=== PATIENT | male | born 1985 | race Caucasian/White ===

== ENCOUNTER 2022-06-02 08:00 | Outpatient (RCR) | payer SELFPAY | END 2022-10-15 13:53 | disposition home or self-care (01) | PROVIDERS: Visit Provider Family Medicine | DX: I89.0 Lymphedema, not elsewhere classified (principal); L03.115 Cellulitis of right lower limb; Z51.89 Encounter for other specified aftercare | CPT/HCPCS: 97140; 97165 ==

== ENCOUNTER 2022-09-03 22:55 | Emergency (ER) | payer SELFPAY ==
[2022-09-03 23:00] VITALS: BP 151/93; PULSE 99; RESP 18; TEMP 36.3; O2SAT 97; BMI 43.8
--- NOTE | 2022-09-03 23:15 | ED_ITS ---
HPI - Ear Problem General Time Seen by Provider: 23:16 Date Seen: 09/03/22 Chief complaint: Ear/Nose/Throat Problem Stated complaint: Left Ear Pain Time Seen by Provider: 09/03/22 23:09 Source: patient, RN notes reviewed and old records reviewed Mode of arrival: ambulatory Limitations: no limitations History of Present Illness HPI Narrative: Ap is a very pleasant 37-year-old gentleman with a history of gout and nicotine use who comes to the emergency room for evaluation regarding left ear pain. Patient notes the onset of ear feeling like it was muffled earlier today but has had increasing pain throughout the evening. He has not had fever chills. He states he had 1 day of cold-like symptoms last week. But has been dealing with environmental allergies with some increased congestion. The pain in his ear radiates to his jaw and he is sore behind his ear as well. This has not happened to him in the past. He has tried ibuprofen but it did not signifi cantly help his pain. Related Data Home Medications Medication Instructions Recorded Confirmed Excedrin Migraine 09/03/22 ibuprofen 09/03/22 Previous Rx's Medication Instructions Recorded furosemide 40 mg tablet (Lasix) 40 mg PO QAM #30 tabs 08/26/22 Allergies Allergy/AdvReac Type Severity Reaction Status Date / Time No Known Allergies Allergy Verified 09/03/22 23:02 Review of Systems Narrative: Patient denies fever, chills. He has not had issues with otitis media or swimmer's ear in the past. Denies sore throat. Has had occasional cough and congestion secondary to allergies. No history of diabetes [facility] Medical History External hemorrhoids Gout Lower gastrointestinal hemorrhage Lymphedema of right lower extremity Nicotine dependence (06/07/09) Surgical History History of umbilical hernia repair Social History Smoking Status: Current every day smoker How often do you have a drink containing alcohol: never AUDIT-C Alcohol total score: 0 Non-prescribed substance use: denies use Exam Narrative: Exam Narrative: Patient is a very pleasant gentleman. His eyes are clear oral cavity with moist mucous membranes. Left TM is slightly erythematous and dull. However the ear canal is erythematous and there is debris present although the canal is patent at this time. He has discomfort with palpation behind his ear but there is no obvious erythema. There is no obvious edema. He has minimal tenderness with movement of the external ear. Heart with regular rate and rhythm and lungs are clear to auscultation. Const: Vital Signs, click to edit/add: Vital Signs - 24 hr 09/03/22 23:00 Temperature 97.4 F L Pulse Rate [Left P ulse Oximeter] 99 Respiratory Rate 18 Blood Pressure [Ri ght Upper Arm] 151/93 H Pulse Oximetry 97 Oxygen Delivery Me thod Room Air Documenting provider has reviewed patient's vital signs: yes Course Vital Signs Vital signs: Initial Vital Signs Temperature 97.4 F L 09/03/22 23:00 Temperature Source Temporal Artery Scan 09/03/22 23:00 Pulse Rate 99 09/03/22 23:00 Respiratory Rate 18 09/03/22 23:00 Blood Pressure 151/93 H 09/03/22 23:00 Blood Pressure Mean 112 09/03/22 23:00 Blood Pressure Position Sitting 09/03/22 23:00 Pulse Oximetry 97 09/03/22 23:00 Oxygen Delivery Method 09/03/22 23:00 Vital Signs Temperature 97.4 F L 09/03/22 23:00 Pulse Rate 99 09/03/22 23:00 Respiratory Rate 18 09/03/22 23:00 Blood Pressure 151/93 H 09/03/22 23:00 Pulse Oximetry 97 09/03/22 23:00 Oxygen Delivery Method 09/03/22 23:00 Temperature 97.4 F L 09/03/22 23:00 Pulse Rate 99 09/03/22 23:00 Respiratory Rate 18 09/03/22 23:00 Blood Pressure 151/93 H 09/03/22 23:00 Pulse Oximetry 97 09/03/22 23:00 Oxygen Delivery Method 09/03/22 23:00 Medical Decision Making [facility] Narrative Medical decision making narrative: 1. Left otitis media-this is mild but will be treated with antibiotic 2. Left otitis externa-this is likely where patient's pain is stemming from. Because he has some discomfort behind the ear and is radiating to the jaw will treat with both drops as well as oral antibiotic. Augmentin 875 p.o. b.i.d. times 10 days and Cortisporin otic 4 drops left ear 4 times daily while awake for 7 days. 3. Disposition-home. For pain patient should continue ibuprofen 800 mg every 8 hours. For pain not relieved by ibuprofen he may use Patterson 5/3 25 1-2 tablets p.o. q.4-6 hours p.r.n. pain. 10. [employer]. Seek medical attention for worsening symptoms. Follow-up with primary MD if not improving. Medical Records Medical records reviewed: Yes I reviewed the patient's medical records Discharge Plan Discharge Clinical Impression: Otitis externa, Otitis media Patient Disposition: Home, Self-Care Condition: Unchanged Additional Instructions: Start Augmentin oral tablets tonight. Also would recommend ear drops as directed. For pain: Ibuprofen 800 mg every 8 hours as needed. You may add Patterson also known as hydrocodone or Vicodin every 4-6 hours as needed for pain not relieved by ibuprofen Follow-up with your primary MD if you are not improving. Return to the emergency room if you worsening symptoms. Prescriptions: No Action ibuprofen Excedrin Migraine furosemide [Lasix] 40 mg tablet 40 mg PO QAM Qty: 30 0RF Follow Up/Referrals: Provider,Not a Local [Primary Care Provider] - Stand Alone Forms: [email or web address] Info Instructions
--- OUTSIDE RECORDS SUMMARY | 2022-09-03 23:33 | XMS_ITS | Clinical Summary ---
:1985 Author Organization [facility] [facility] [employer] [facility] [place] [address] Care Team Providers Name Role Phone Pcp, No Primary Care Provider Unavailable Allergies No known active allergies Medications No known medications Active Problems Problem Noted Date Gout 05/27/2014 Cellulitis of left lower leg 06/29/2013 Immunizations Name Administration Dates Next Due AMB Influenza, IIV3 (Age >=3 years)(Flu 08/13/2009 Clinic Only) DTaP 09/20/1986, 1985, 1985 Influenza, IIV3 (Age >=3 years) 08/13/2009 MMR 07/19/1986 Polio Virus, Unspecified 09/20/1986, 1985 Tdap 04/22/2016 Social History Tobacco Use Types Packs/Day Years Used Date Current Every Day Smoker Cigarettes 1 Smokeless Tobacco: Never Used Tobacco Cessation: Ready to Quit: No; Co unseling Given: Yes Alcohol Use Standard Drinks/Week Comments No 0 (1 standard drink = 0.6 oz pure alcoho l) rare Alcohol Habits Answer Date Recorded How often do you have a drink containing alcohol? Not asked How many drinks containing alcohol do you have on a typical Not asked day when you are drinking? How often do you have six or more drinks on one occasion? 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 Body Mass Index 39.49 12/30/2017 11:13 AM RECOVERY ENGINEER Plan of Treatment Health Maintenance Due Date Last Done Comments COVID-19 vaccine series (#1) 1985 Hepatitis C screening for age 0301/29/2003 18-79 BMI (ht and wt on same day) for 12/30/2018 12/30/2017, 03/2017, age 18+ 06/26/2016, Additional history exists Depression screening for age 12+ 05/06/2019 05/06/2018, 03/2017 Lipids for age 35-44 01/30/2020 Influenza for age 9-49 07/10/2022 08/13/2009, 08/13/2009 Tetanus booster 04/22/2026 04/22/2016 Tdap Completed 04/22/2016 Results Not on filefrom Last 3 Months Care Teams Studio Designer Relationship Specialty Start Date End Date Pcp, No PCP - General 05/27/14 .
== END 2022-09-03 23:41 | disposition home or self-care (01) ==
LOC: ED 23:32
PROVIDERS: Emergency Provider Family Medicine
DX: H66.92 Otitis media, unspecified, left ear (principal); H60.92 Unspecified otitis externa, left ear
CPT/HCPCS: 99283

== ENCOUNTER 2022-10-09 10:39 | Outpatient (CLI) | payer SELFPAY ==
--- OUTSIDE RECORDS SUMMARY | 2022-10-09 10:42 | XMS_ITS | Clinical Summary ---
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 Body Mass Index 39.49 12/30/2017 11:13 AM HAZMAT TRUCK DRIVER Plan of Treatment Health Maintenance Due Date Last Done Comments COVID-19 vaccine series (#1) 1985 HIV for age 15-65 01/30/2000 Hepatitis C screening for age 0301/29/2003 18-79 BMI (ht and wt on same day) for 12/30/2018 12/30/2017, 03/2017, age 18+ 06/26/2016, Additional history exists Depression screening for age 12+ 05/06/2019 05/06/2018, 03/2017 Lipids for age 35-44 01/30/2020 Influenza for age 9-49 07/10/2022 08/13/2009, 08/13/2009 Tetanus booster 04/22/2026 04/22/2016 Tdap Completed 04/22/2016 Results Not on filefrom Last 3 Months Care Teams Gas Pipe Layer Relationship Specialty Start Date End Date Pcp, No PCP - General 05/27/14 .
[2022-10-09 15:13] LABS: Basophils Absolute Auto 0.05 K/uL (0.00-0.30); Basophils Percent Auto 0.7 % (0.0-3.0); Eosinophils Absolute Auto 0.14 K/uL (0.00-0.50); Eosinophils Percent Auto 1.9 % (0.0-7.0); Hematocrit 45.5 % (37.0-53.0); Hemoglobin* 14.8 gm/dL (13.5-17.5); Immature Granulocytes Abs Auto 0.09 K/uL (0.00-0.30); Immature Granulocytes Pct Auto 1.2 %; Lymphocytes Absolute Auto 1.54 K/uL (0.90-2.90); Lymphocytes Percent Auto 20.9 % (20-44); Mean Corpuscular HGB Conc 33 gm/dL (32-36); Mean Corpuscular Hemoglobin 31 pg (26-34); Mean Corpuscular Volume 95 fL (80-100); Monocytes Percent Auto 9.5 % (0.0-11.0); Neutrophils Absolute Auto 4.86 K/uL (1.7-7.0); Neutrophils Percent Auto 65.8 % (42.0-72.0); Platelet Count* 184 K/uL (140-440); RDW Coefficient of Variation % 14.7 % (11.5-15.5); Red Blood Count 4.77 m/uL (4.30-5.90); White Blood Count* 7.38 K/uL (4.50-11.00)
[2022-10-09 15:14] LABS: Slide Review Reflex No
[2022-10-09 15:15] LABS: Chloride* 104 mmol/L (96-114); Potassium* 4.6 mmol/L (3.6-5.1)
[2022-10-09 15:17] LABS: Cholesterol* 251 mg/dL (90-199)
[2022-10-09 15:18] LABS: Blood Urea Nitrogen* 19 mg/dL (5-24); Carbon Dioxide* 31 mmol/L (20-32); Estimated Glomerular Filt Rate 99 ml/min; Glucose* 122 mg/dL (60-115)
[2022-10-09 15:19] LABS: HDL Cholesterol* 32 mg/dL (>=40); LDL Cholesterol Calculated 123 mg/dL (<100)
[2022-10-09 15:32] LABS: Sodium* 141 mmol/L (135-149)
[2022-10-09 15:40] LABS: Triglycerides* 480 mg/dL (40-149)
== END 2022-10-09 10:40 | disposition home or self-care (01) ==
PROVIDERS: Visit Provider Family Medicine
DX: L03.115 Cellulitis of right lower limb (principal); E78.5 Hyperlipidemia, unspecified; M10.9 Gout, unspecified
CPT/HCPCS: 80048; 80061; 85025

== ENCOUNTER 2023-01-03 22:03 | Emergency (ER) | payer SELFPAY ==
[2023-01-03 22:29] VITALS: BP 151/75; PULSE 126; RESP 24; TEMP 37; O2SAT 98
--- NOTE | 2023-01-03 22:47 | ED_ITS ---
HPI - General Adult General Chief complaint: Lower Extremity Swelling Stated complaint: Right Leg Pain and Swelling Time Seen by Provider: 01/03/23 22:31 Source: patient Mode of arrival: ambulatory Limitations: no limitations History of Present Illness HPI narrative: 37-year-old male coming in today concerned about right leg pain. He states that he does have chronic swelling of both legs, right much greater than the left, and he has had a history of cellulitis before. He states that a few days ago the right lower extremity started burning and is slowly becoming more painful. He denies any fevers or chills. No nausea or vomiting. He tells me that for the last several weeks he has been feeling more tired than usual. He has episodes of shortness of breath that come and go. He does continue to smoke [place], does not watch what he eats, is morbidly obese, does not exercise. He does have a history of hyperlipidemia, obesity, gout, lymphedema. He was on Lasix in the past but tells me that it does not bring down the swelling of his legs at all. He states that when his legs begin to hurt he puts on a compression stocking on that helps. Unfortunately, he also has a habit of picking at his skin and so he has several open sores of the bilateral lower extremities along with several healing scabs. Related Data Previous Rx's Medication Instructions Recorded amoxicillin 875 mg-potassium 1 tab PO BID #20 tabs 10/09/22 clavulanate 125 mg tablet fluticasone propionate 50 2 spray intranasal QDAY #16 grams 10/09/22 mcg/actuation nasal spray,suspension (Flonase Allergy Relief) furosemide 40 mg tablet (Lasix) 40 mg PO QAM #90 tabs 10/09/22 cephalexin 500 mg capsule 500 mg PO QID 7 days #28 caps 01/03/23 Allergies Allergy/AdvReac Type Severity Reaction Status Date / Time No Known Drug Allergies Allergy Verified 10/09/22 10:10 Review of Systems Status of ROS: Reports: 10 or more systems reviewed and unremarkable except as noted in History and below [facility] Medical History Allergic rhinitis External hemorrhoids Gout Hyperlipidemia Lower gastrointestinal hemorrhage Lymphedema of right lower extremity Nicotine dependence (06/07/09) Surgical History History of umbilical hernia repair 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 Alert and oriented x3. Answers questions appropriately. Mood and affect are appropriate. Thou ghts are goal oriented and rational. No tangential or magical thinking noted. Patient speaks in full sentences without needing to catch his breath. I did recheck his pulse, it was 105. Patient is disheveled, hair is unclean, has a very strong odor. HEENT: Normocephalic atraumatic. Pupils are equally round reactive to light. Extraocular muscles are intact. Conjunctivae are moist without any icterus noted. Moist mucous membranes. Cardiovascular: Heart is regular rate and rhythm S1 and S2 are present without any murmurs. Lungs: Clear to auscultation bilaterally no wheezes rhonchi or rales are appreciated. Patient takes deep breaths without any discomfort. He does have a prolonged expiratory phase. Abdomen: Protuberant and soft. Normal bowel sounds. Extremities: Bilateral lower extremities have [place] induration bilaterally. He has a weeping for rash open wound on the medial right lower extremity. Several healing scabs of the bilateral lower extremities. The right lower extremity is bigger than the left with anterior erythema and pain to palpation. Is hot to touch. Skin: Per above. He also has scars from picking of the bilateral upper extremities. His hands are very dirty. Const: Vital Signs, click to edit/add: Vital Signs - 24 hr 01/03/23 22:29 Temperature 98.6 F Pulse Rate [Left P ulse Oximeter] 126 H Respiratory Rate 24 Blood Pressure [Ri ght Upper Arm] 151/75 H Pulse Oximetry 98 Oxygen Delivery Me thod Room Air Course Course Hospital Course: We discussed treating with antibiotics and doing further workup. Patient believes that further labs are not necessary at this time. He is not terribly concerned about his episodes of shortness of breath that come and go or his fatigue. He is concerned about the possibility that he has amyloidosis, as this is something he read on the Internet, I recommend he follow-up with his primary care provider to discuss that further. Vital Signs Vital signs: Initial Vital Signs Temperature 98.6 F 01/03/23 22:29 Temperature Source Temporal Artery Scan 01/03/23 22:29 Pulse Rate 126 H 01/03/23 22:29 Pulse Rhythm 01/03/23 22:29 Respiratory Rate 24 01/03/23 22:29 Blood Pressure 151/75 H 01/03/23 22:29 Blood Pressure Mean 100 01/03/23 22:29 Blood Pressure Position Sitting 01/03/23 22:29 Pulse Oximetry 98 01/03/23 22:29 Oxygen Delivery Method 01/03/23 22:29 Vital Signs Temperature 98.6 F 01/03/23 22:29 Pulse Rate 126 H 01/03/23 22:29 Respiratory Rate 24 01/03/23 22:29 Blood Pressure 151/75 H 01/03/23 22:29 Pulse Oximetry 98 01/03/23 22:29 Oxygen Delivery Method 01/03/23 22:29 Temperature 98.6 F 01/03/23 22:29 Pulse Rate 126 H 01/03/23 22:29 Respiratory Rate 24 01/03/23 22:29 Blood Pressure 151/75 H 01/03/23 22:29 Pulse Oximetry 98 01/03/23 22:29 Oxygen Delivery Method 01/03/23 22:29 Medical Decision Making MDM Narrative Medical decision making narrative: 37-year-old male with chronic lymphedema, and picking behaviors, and resulting cellulitis of the right lower extremity. Will treat with Keflex 4 times a day for the next week. Do want him to follow up with primary care provider this coming week to make sure that he is improving. Return to the ER if he is getting worse. Medical Records Medical records reviewed: Yes I reviewed the patient's medical records Discharge Plan Discharge Clinical Impression: Cellulitis of right lower extremity Patient Disposition: Home, Self-Care Condition: Stable Additional Instructions: Follow-up with your primary care provider this coming week. Take all antibiotics as prescribed. If you feel like you are getting worse instead of better over the next 1-2 days return to the ER. Prescriptions: New cephalexin 500 mg capsule 500 mg PO QID 7 Days Qty: 28 0RF No Action amoxicillin-pot clavulanate 875-125 mg tablet 1 tab PO BID Qty: 20 0RF fluticasone propionate [Flonase Allergy Relief] 50 mcg/actuation spray,suspension 2 spray intranasal QDAY Qty: 16 12RF Rx Instructions: administer into each nostril furosemide [Lasix] 40 mg tablet 40 mg PO QAM Qty: 90 1RF Follow Up/Referrals: Provider,Not a Local [Primary Care Provider] - Stand Alone Forms: [employer] Info Instructions
--- NOTE | 2023-01-03 23:27 | ED.NURSE ---
Dressing applied, which included telfa, gauze and coban, to right lower extremity wound that was weeping.
[2023-01-03 23:28] VITALS: BP 146/81
== END 2023-01-03 23:29 | disposition home or self-care (01) ==
LOC: ED 23:08
PROVIDERS: Emergency Provider Family Medicine
DX: L03.115 Cellulitis of right lower limb (principal)
CPT/HCPCS: 99283

== ENCOUNTER 2023-04-20 19:47 | Outpatient (CLI) | payer BC, SELFPAY ==
--- NOTE | 2023-04-28 09:25 | W.PM.SLEEP ---
Sleep Study Details Details Interpreting Provider: Nicki Date of Sleep Study: 04/20/23 Sleep Study Details: STUDY TYPE:? Home unattended ? BMI:? 46.9 ORDERING PROVIDER:? Nicki INDICATION:? Concerns about sleep apnea ? SLEEP SUMMARY:? 255.5 minutes monitored RESPIRATORY SUMMARY:? AHI 112.3 Low oxygen 52 78.5% of study oxygen less than 90%, 19.6% of study oxygen less than 70% Snoring 18% PERIODIC LIMB MOVEMENTS OF SLEEP:? Not recorded during home study CARDIAC:? Range 63-123, mean 96.2 IMPRESSION:? Very severe obstructive sleep apnea with minimal positional variation and significant hypo oxygenation RECOMMENDATION: In-lab titration is recommended because of significant hypo oxygenation. Alternative would be an AutoSet CPAP followed by overnight oximetry once effective therapy is established. Given the severity of the apnea this patient may end up requiring bilevel.
--- NOTE | 2023-06-17 08:06 | W.PM.SLEEP ---
Sleep Study Details Details Interpreting Provider: Nicki Date of Sleep Study: 04/20/23 Sleep Study Details: STUDY TYPE:? Hospital-based with CPAP titration ? BMI:? 48.3 ORDERING PROVIDER:? Nicki INDICATION:? Previous positive sleep study. This is a titration only study ? SLEEP SUMMARY:? Total sleep time 393 minutes, efficiency 85.9, arousal index 23.1 RESPIRATORY SUMMARY:? The overall AHI in this study was 31.6 here. CPAP titration failed as AHI remained dramatically elevated. The patient was then placed on bilevel. He did best at pressures of 15/11 and 16/12 and 17/13. 17/13 decreased AHI to 11.7 which is a dramatic improvement. Nonsupine REM sleep was seen add all of the preceding pressures. PERIODIC LIMB MOVEMENTS OF SLEEP:? None CARDIAC:? Awake 104, asleep 96 no arrhythmias noted. IMPRESSION:? Somewhat successful titration. CPAP failed. Bilevel pressure of 17/13 appeared to be the best pressure and included nonsupine REM sleep. RECOMMENDATION: Would initiate bilevel at a pressure of 17/13 recommend patient sleep in the nonsupine position. Close follow-up is recommended.
== END 2023-04-20 19:48 | disposition home or self-care (01) ==
LOC: SLEEP 19:48
PROVIDERS: PCP Family Medicine; Visit Provider Otolaryngology
DX: G47.33 Obstructive sleep apnea (adult) (pediatric) (principal)
CPT/HCPCS: 95806

== ENCOUNTER 2023-04-21 12:42 | Outpatient (CLI) | payer BC, SELFPAY | END 2023-04-21 12:43 | disposition home or self-care (01) | PROVIDERS: PCP Family Medicine; Visit Provider Family Medicine | DX: Z00.00 Encounter for general adult medical examination without abnormal findings (principal); R19.7 Diarrhea, unspecified; E78.5 Hyperlipidemia, unspecified; I89.0 Lymphedema, not elsewhere classified | CPT/HCPCS: 80048; 84443; 85025; 86140 ==

== ENCOUNTER 2023-06-02 11:09 | Outpatient (CLI) | payer BC, SELFPAY ==
--- NOTE | 2023-06-02 11:00 | CRLHL7_ITS ---
For Patients: As a result of the Century Cures Act, medical imaging exams and procedure reports are released immediately into your electronic medical record. You may view this report before your referring provider. If you have questions, please contact your health care provider. Indication: RIGHT medial/prox thigh, palpable protruding mass. ?lipoma Technique: Grayscale and color Doppler ultrasound of the soft tissues within the upper proximal thigh performed. Comparison: CT with contrast 10/26/2021 Findings: There is an ill-defined area heterogeneous tissue within the subcutaneous region of the right proximal thigh without abnormal vascularity. This may correspond to a chronic area fat infiltration/edema on the prior CT scan. The previously noted enlarged lymph nodes are not visualized on today`s exam. There is no drainable fluid collection. Impression: Complex heterogeneous tissues within the right proximal thigh which do not represent lipoma. This appears chronic and indeterminate although of doubtful significance. An MRI evaluation of this area may be beneficial. Dictated by Ap Murry MD @ 06/02/2023 12:05:25 PM (Electronically Signed)
== END 2023-06-02 11:10 | disposition home or self-care (01) ==
LOC: US 11:09
PROVIDERS: PCP Family Medicine; Visit Provider Surgery
DX: M79.89 Other specified soft tissue disorders (principal)
CPT/HCPCS: 76882

== ENCOUNTER 2023-06-04 21:20 | Outpatient (CLI) | payer BC, SELFPAY | END 2023-06-04 21:21 | disposition home or self-care (01) | LOC: SLEEP 21:20 | PROVIDERS: PCP Family Medicine; Visit Provider Otolaryngology | DX: G47.33 Obstructive sleep apnea (adult) (pediatric) (principal) | CPT/HCPCS: 95811 ==

== ENCOUNTER 2023-06-06 00:49 | Emergency (ER) | payer BC, SELFPAY ==
[2023-06-06 01:15] VITALS: BP 138/84; PULSE 105; RESP 18; TEMP 36.7; O2SAT 99; BMI 48.5
--- NOTE | 2023-06-06 01:19 | ED_ITS ---
HPI - General Adult General Chief complaint: Laceration/Wound Stated complaint: right leg lac Time Seen by Provider: 06/06/23 01:04 History of Present Illness HPI narrative: Patient is a 38-year-old gentleman with a known history of peripheral vascular disease and venous insufficiency of lower extremities who presents with wheezing from chronic ulcerations of his lower extremities. Patient has a number of small ulcerations over the circumference of the lower extremities bilaterally and has obvious venous staining of both calves. Patient has a chronic edema which is not changed. The erythema is slightly worse on the right and patient is concerned he may have an infection. Patient has a large lump in the right side of his groin and evaluation is pending. Not certain what is causing that lump. The lymphedema is clearly noted in the lower extremities and has been for quite some time. He has had no chest pain shortness a breath orthopnea no PND. He takes no regular medications. He has been trialed on Lasix which did not agree with him. No other significant symptoms he has been afebrile. Related Data Home Medications Medication Instructions Recorded Confirmed No Known Home Medications 06/06/23 06/06/23 Allergies Allergy/AdvReac Type Severity Reaction Status Date / Time No Known Drug Allergies Allergy Verified 06/06/23 01:17 Review of Systems Status of ROS: Reports: 10 or more systems reviewed and unremarkable except as noted in History and below [facility] Medical History Obstructive sleep apnea ?G47.33 - Obstructive sleep apnea (adult) (pediatric) (ICD-10) Edema ?R60.9 - Edema, unspecified (ICD-10) Hyperlipidemia ?E78.5 - Hyperlipidemia, unspecified (ICD-10) Allergic rhinitis ?J30.9 - Allergic rhinitis, unspecified (ICD-10) Lymphedema of right lower extremity ?I89.0 - Lymphedema, not elsewhere classified (ICD-10) Lower gastrointestinal hemorrhage ?K92.2 - Gastrointestinal hemorrhage, unspecified (ICD-10) Gout ?M10.9 - Gout, unspecified (ICD-10) External hemorrhoids ?K64.4 - Residual hemorrhoidal skin tags (ICD-10) Surgical History History of umbilical hernia repair ?Z98.890 - Other specified postprocedural states (ICD-10) ?Z87.19 - Personal history of other diseases of the digestive system (ICD-10) Social History Narrative: works for [employer], smokes 1/2 PPD. Minimal Alcohol Smoking Status: Current every day smoker What tobacco products do you use: cigarettes How often do you have a drink containing alcohol: monthly or less How many standard drinks containing alcohol do you have on a typical day: 1 or 2 AUDIT-C Alcohol total score: 1 Non-prescribed substance use: denies use Little interest or pleasure in doing things: several days Feeling down, depressed, or hopeless: not at all service: No Exam Narrative: Exam Narrative: EXAM GENERAL: Patient appears comfortable but morbidly obese EYES: No scleral icterus. LYMPH: No supraclavicular or cervical lymphadenopathy. SKIN: Visible skin seen during exam normal or with benign process only. EXT: 1+ lower extremity edema with chronic venous bronzing of the lower extremities in the mid calf and distally. Number of ulcerations that may be due to picking Noted circumferentially in lower extremity with some increased erythema noted in the right lower extremity. Primarily clear discharge from the ulcerations. HEART: Regular rate and rhythm with no murmurs, rubs, or gallops. Distant heart tones LUNGS: Clear to auscultation bilaterally with no crackles or wheezes. ABD: Soft, non tender, non distended. Obese PSYCH: Good eye contact, speech is not pressured. Const: Vital Signs, click to edit/add: Vital Signs - 24 hr 06/06/23 01:15 Temperature 98.0 F Pulse Rate [Right Pulse Oximeter] 105 H Respiratory Rate 18 Blood Pressure [Ri ght Upper Arm] 138/84 Pulse Oximetry 99 Oxygen Delivery Me thod Room Air Course Course Hospital Course: Patient seen examined. Ulcerations are cleaned and the lower extremities are dr essed. Vital Signs Vital signs: Initial Vital Signs Temperature 98.0 F 06/06/23 01:15 Temperature Source Temporal Artery Scan 06/06/23 01:15 Pulse Rate 105 H 06/06/23 01:15 Respiratory Rate 18 06/06/23 01:15 Blood Pressure 138/84 06/06/23 01:15 Blood Pressure Mean 102 06/06/23 01:15 Blood Pressure Position Sitting 06/06/23 01:15 Pulse Oximetry 99 06/06/23 01:15 Oxygen Delivery Method Room Air 06/06/23 01:15 Vital Signs Temperature 98.0 F 06/06/23 01:15 Pulse Rate 105 H 06/06/23 01:15 Respiratory Rate 18 06/06/23 01:15 Blood Pressure 138/84 06/06/23 01:15 Pulse Oximetry 99 06/06/23 01:15 Oxygen Delivery Method Room Air 06/06/23 01:15 Temperature 98.0 F 06/06/23 01:15 Pulse Rate 105 H 06/06/23 01:15 Respiratory Rate 18 06/06/23 01:15 Blood Pressure 138/84 06/06/23 01:15 Pulse Oximetry 99 06/06/23 01:15 Oxygen Delivery Method Room Air 06/06/23 01:15 Medical Decision Making MDM Narrative Medical decision making narrative: This is a 38-year-old gentleman with long history of chronic lymphedema of the lower extremities. He has obvious venous insufficiency as well. I do think he has a mild secondary infection in the right lower extremity we will treated with Keflex for the next 7 days. More importantly will dress his wounds and provide some compression. I do think that he would be a great candidate to be seen in wound clinic. He may also benefit from referral to chronic lymphedema clinic. Would recommend follow-up with primary care to ensure that all is being done to get his weight down as well. Tetanus shot updated. Differential Diagnosis Differential Diagnosis: Cellulitis venous insufficiency ulcerations ischemic limb abscess Discharge Plan Discharge Clinical Impression: Lymphedema Patient Disposition: Home, Self-Care Condition: Stable Instructions: Lymphedema (ED) Additional Instructions: Daily dressing changes Triple antibiotic Oral Keflex as directed Follow-up with primary care to set up wound clinic visit. Activity Level: No Restrictions Discharge Diet: Regular Prescriptions: No Action No Known Home Medications Follow Up/Referrals: Ap Carl MD [Primary Care Provider] - Stand Alone Forms: [employer] Info Instructions
[2023-06-06 02:00] VITALS: BP 138/84; PULSE 105; RESP 18; TEMP 36.7; O2SAT 99
[2023-06-06 02:04] VITALS: BP 138/84; PULSE 89; RESP 18; TEMP 36.7
== END 2023-06-06 02:05 | disposition home or self-care (01) ==
PROVIDERS: Emergency Provider Internal Medicine; PCP Family Medicine
DX: I89.0 Lymphedema, not elsewhere classified (principal)
CPT/HCPCS: 99283

== ENCOUNTER 2023-06-12 07:06 | Outpatient (CLI) | payer BC, SELFPAY ==
--- NOTE | 2023-06-12 07:15 | CRLHL7_ITS ---
For Patients: As a result of the Century Cures Act, medical imaging exams and procedure reports are released immediately into your electronic medical record. You may view this report before your referring provider. If you have questions, please contact your health care provider. HISTORY: Localized swelling, mass and lump of the right upper leg. TECHNIQUE: Noncontrast and contrast enhanced MRI of the right upper thigh. 15 mL of Dotarem intravenous gadolinium was administered. COMPARISON: 10/26/2021. 06/02/2023. FINDINGS: There is an area of the protuberant subcutaneous fat of the medial anterior right upper thigh close to the inguinal crease. There is associated skin thickening along with infiltration of the subcutaneous fat in that location. This could indicate the presence of cellulitis. There is no localized fluid collection in that region. There is no encapsulated soft tissue mass. A cutaneous tumor could appear similar and correlation with the outward appearance of the skin in that location is suggested. Rarely lesions such as diffuse type neurofibroma can present with skin thickening and subcutaneous fat infiltration. There is right inguinal lymphadenopathy. There are also prominent left inguinal region lymph nodes. IMPRESSION: 1. Protuberant subcutaneous fat involving the anteromedial upper thigh close to the inguinal crease. 2. Skin thickening along with infiltration of the subcutaneous fat in that region which could relate to a localized cellulitis. A skin tumor in that location could appear similarly. Correlation with the outward appearance of the skin at that site is suggested. Rarely, diffuse type neurofibroma can present with skin thickening and subcutaneous tissue infiltration. 3. No localized fluid collection. 4. No encapsulated subcutaneous mass in that region. 5. Right inguinal region lymphadenopathy which may be reactive. Dictated by Teodoro Arias MD @ 06/15/2023 8:41:21 AM (Electronically Signed)
== END 2023-06-12 07:07 | disposition home or self-care (01) ==
LOC: MRI 07:07
PROVIDERS: PCP Family Medicine; Visit Provider Surgery
DX: R22.41 Localized swelling, mass and lump, right lower limb (principal)
CPT/HCPCS: 73720; A9575

== ENCOUNTER 2023-07-26 18:38 | Emergency (ER) | payer BC, SELFPAY ==
[2023-07-26 19:01] VITALS: BP 140/85; PULSE 110; RESP 14; TEMP 36.6; O2SAT 98; BMI 49.4
--- NOTE | 2023-07-26 19:37 | ED.GENADULT ---
HPI - General Adult General Date Seen: 07/26/23 Chief complaint: Unspecified Complaint, Adult Stated complaint: Groin pain Time Seen by Provider: 07/26/23 19:18 Source: patient Mode of arrival: ambulatory Limitations: no limitations History of Present Illness HPI narrative: Patient is a 38-year-old male presenting for left groin and thigh pain. He states today he notes he has been having gradually worsening pain to his left thigh radiating up to his lifeline has been going on for the past 4 hours. He states he got acutely worse when he was picking up his daughter and twisted. Denies any pain in his testicles. Denies any known injuries to his thigh or groin. Notes he is very tender to the thigh and radiates up to his groin and low back. Never had pain like this before. Has not taken anything yet for the pain. Related Data Home Medications Medication Instructions Recorded Confirmed No Known Home Medications 06/06/23 06/23/23 Allergies Allergy/AdvReac Type Severity Reaction Status Date / Time No Known Drug Allergies Allergy Verified 06/23/23 13:07 Review of Systems Narrative: Negative unless otherwise stated in HPI PFSH PFS Medical History Obstructive sleep apnea ?G47.33 - Obstructive sleep apnea (adult) (pediatric) (ICD-10) Edema ?R60.9 - Edema, unspecified (ICD-10) Hyperlipidemia ?E78.5 - Hyperlipidemia, unspecified (ICD-10) Allergic rhinitis ?J30.9 - Allergic rhinitis, unspecified (ICD-10) Lymphedema of right lower extremity ?I89.0 - Lymphedema, not elsewhere classified (ICD-10) Lower gastrointestinal hemorrhage ?K92.2 - Gastrointestinal hemorrhage, unspecified (ICD-10) Gout ?M10.9 - Gout, unspecified (ICD-10) External hemorrhoids ?K64.4 - Residual hemorrhoidal skin tags (ICD-10) Surgical History History of umbilical hernia repair ?Z98.890 - Other specified postprocedural states (ICD-10) ?Z87.19 - Personal history of other diseases of the digestive system (ICD-10) Social History (Reviewed 07/26/23 @ 19:38 by SEVEN Gonzalez Narrative: works for [employer], smokes 1/2 PPD. Minimal Alcohol Smoking Status: Current every day smoker What tobacco products do you use: cigarettes How often do you have a drink containing alcohol: monthly or less How many standard drinks containing alcohol do you have on a typical day: 1 or 2 AUDIT-C Alcohol total score: 1 Non-prescribed substance use: denies use Little interest or pleasure in doing things: several days Feeling down, depressed, or hopeless: not at all service: No Exam Narrative: Exam Narrative: Const: Well-nourished, Well-developed, in mild distress Eyes: PERRL, no conjunctival injection, and symmetrical lids ENMT: Atraumatic external nose and ears. Moist mucous membranes. Neck: Symmetric, trachea midline, No thyromegaly. CVS: RRR, No murmurs or gallops. Peripheral pulses 2+ and equal in all extremities RESP: Unlabored respiratory effort. Clear to auscultation bilaterally. GI: Nontender/Nondistended, No rebound or guarding. MSK:Extremities w/o deformity, Normal Active ROM but there is some pain noted to the left thigh with movement. Tenderness noted to the medial aspect of the left thigh. Mild tenderness to left groin Skin: Warm, Dry. No rashes or lesions. Neuro: Normal Muscle tone, No focal neurological deficits. Psych: Awake, Alert, & Oriented x3. Appropriate mood and affect. Const: Vital Signs, click to edit/add: Vital Signs - 24 hr 07/26/23 19:01 Temperature 97.9 F Pulse Rate [Pulse Oximeter] 110 H Respiratory Rate 14 Blood Pressure [Ri t Upper Arm] 140/85 H Pulse Oximetry 98 Course Vital Signs Vital signs: Initial Vital Signs Temperature 97.9 F 07/26/23 19:01 Temperature Source Temporal Artery Scan 07/26/23 19:01 Pulse Rate 110 H 07/26/23 19:01 Respiratory Rate 14 07/26/23 19:01 Blood Pressure 140/85 H 07/26/23 19:01 Blood Pressure Mean 103 07/26/23 19:01 Pulse Oximetry 98 07/26/23 19:01 Vital Signs Temperature 97.9 F 07/26/23 19:01 Pulse Rate 110 H 07/26/23 19:01 Respiratory Rate 14 09/17/23 19:01 Blood Pressure 140/85 H 07/26/23 19:01 Pulse Oximetry 98 07/26/23 19:01 Temperature 97.9 F 07/26/23 19:01 Pulse Rate 110 H 07/26/23 19:01 Respiratory Rate 14 07/26/23 19:01 Blood Pressure 140/85 H 07/26/23 19:01 Pulse Oximetry 98 07/26/23 19:01 Medical Decision Making MDM Narrative Medical decision making narrative: Patient is a 38-year-old male presenting for left thigh and groin pain. No testicular pain at this time. States he has been getting worse for past 4 hours ago acutely worse while he was carrying his daughter. There is pain to palpation of the medial aspect of the leg and tenderness with external rotation of the left leg. He appears to have a muscle strain. There is no testicular pain and very unlikely to be a testicular torsion this time. Unlikely to be a femoral hernia. After he was given a shot of Toradol he says the pain improved significantly. He was resting comfortably in bed on re-evaluation. He can be discharged home. Discharge Plan Discharge Clinical Impression: Muscle strain Patient Disposition: Home, Self-Care Condition: Stable Instructions: Muscle Strain (DC) Additional Instructions: Follow-up with primary care provider if symptoms continue. Take Tylenol or ibuprofen for pain. Can use ice for the pain. Return for new or worsened symptoms Prescriptions: No Action No Known Home Medications Follow Up/Referrals: Ap Carl MD [Primary Care Provider] - Stand Alone Forms: [employer] Info Instructions
[2023-07-26] MEDS: KETOROLAC 30 MG/ML inj IM (19:46)
[2023-07-26 19:48] VITALS: O2SAT 95
== END 2023-07-26 20:41 | disposition home or self-care (01) ==
PROVIDERS: Emergency Provider Student in an Organized Health Care Education/Training Program; PCP Family Medicine
DX: T14.8XXA Other injury of unspecified body region, initial encounter (principal)
CPT/HCPCS: 96372; 99282; 99283; 99284; J1885

== ENCOUNTER 2023-09-09 13:00 | Outpatient (RCR) | payer BC, SELFPAY ==
--- NOTE | 2023-07-07 19:29 | OT.OPLE ---
OT Outpatient Lymphedema Eval OT Outpatient Lymphedema Eval Start: 07/07/23 14:20 Freq: Status: Active Protocol: Document 07/06/23 01:00 BALAJI (Rec: 07/07/23 16:26 BALAJI Desktop) E-signed By Carolina Edwards OTDasha/Marcelo, BARBI OT Outpatient Evaluation Details Type Type Eval Complexity High OT OP Lymphedema Evaluation Insurance Information Insurance Information Blue Cross/[employer] Current Condition/Medical Diagnosis Referring Provider Dr. 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 Patient also has 4 children ranging in age from 1 years old to 19 years old Subjective Subjective My right leg is very heavy and sometimes it feels hard to walk I'm unable to wear most style shoes Medical History Medical History Obesity,HTN,Smoking Medical History Comments PMH includes but is not limited to: Scalp mass: Localized swelling , mass and lump, head Mass of right thigh: Localized swelling, mass and lump, right lower limb; H/O toe surgery: Other specified postprocedural states; Obstructive sleep apnea; Edema, unspecified: Epidermal cyst; Lipoma; Benign lipomatous neoplasm, unspecified; Hyperlipidemia; Allergic rhinitis; External hemorrhoids; Gout; Lymphedema of right lower extremity Medications Medications fluticasone propionate 50 mcg/ actuation (Flonase Allergy Relief) 2 sprays intranasal QDAY Patient said he was taking Lasix 40 mg PO QAM but they don't work Patient has been to the ED twice this year for infections requiring antibiotics ( & most recently 06/06/23) Family History Family History of Lymphedema No Living Situation Current Living Situation Home With Spouse Or SO Current Living Situation Comments Lives with 4 children and girlfriend Patient Difficulties Difficulties With Any Of The Following Walking,Dressing,Reaching Feet & Toes,Bathing/Showering, Preparing Meals Exercise History Does Patient Exercise Regularly No Pain Pain No Loss of Function/Strength/Mobility Loss Of Function/Strength/Mobility Yes Previous Treatment Previous Treatment For Swelling/ Compression Garment,Elevation Lymphedema Previous Treatment/Current Home Program Patient stated that his LE's do not respond from elevation Compression History Does Patient Currently Wear Compression Yes During Daytime Does Patient Currently Wear Compression No At Night Current Swelling (Location/Pitting/Texture) Pitting Scale: 0 = No pitting 1+ Tissue returns to normal almost immediately 2+ Tissue returns after 15-30 seconds 3+ Tissue returns after 1-1/2 minutes 4+ Tissue returns after 2-3 minutes N/A Tissue no longer pits due to induration Tissue texture: Soft or indurated Clinical Presentation Area Patient is morbidly obese ( weight 378 lbs), he has chronic venous bronzing of the lower extremities in the mid calf and distally. Number of ulcerations that may be due to picking-patient stated I have a hard time not scratching at my legs Increased erythema noted in the right lower extremity when comparing the left left. No discharge from the ulcerations . Clinical Presentation Pitting Non-Pitting Staging Staging Stage 2 Circumferential Measurements Lower Extremity Right Lower Extremity Great Toe 10.5 MPT 28.2 Arch 28.6 Ankle 34.6 10cm 33 20cm 46 30cm 51.2 40cm 44.7 50cm 52 60cm 59 70cm 75.8 Total 463.6 Assessment Assessment 38-year-old gentleman with a known history of peripheral vascular disease and venous insufficiency of lower extremities who presents to the clinic with chronic ulcerations of his lower extremities and a dx of R LE Lymphedema. Patient has a number of small ulcerations over the circumference of the lower extremities bilaterally (R worse than L) and has venous staining of both calves . Patient has a large lump in the right side of his groin and upon review of diagnostic imaging the impression reads Complex heterogeneous tissues within the right proximal thigh which do not represent lipoma. This appears chronic and indeterminate although of doubtful significance. Not certain what is causing that lump. The lymphedema is clearly noted in the lower extremities and has been for quite some time. Patient has a high resting HR (was 126 upon his arrival to the clinic and after 10 mins seated it went down to 105 bpm). Patient reports to therapist that he sleeps like crap and will be getting a CPAP later this week or early next week (*Patient was dozing off in clinic today , closing his eyelid and dropping his head forward). Patient takes no regular medications- trialed Lasix 40 mg but stopped taking-felt it didn't help. Patient admitted that he has a habit of picking at his skin and has several healing scabs present on the LE's. Complicating factors/ barriers to successful treatment include but are not limited to: morbid obesity ( weight 378 lbs), every day smoker, works long hours and may find difficulty with forming a new routine/change his normal habits, compression adherence and HEP compliance. Impairments Impairments Loss of Mobility,Difficulties With ADLs,Limb Heaviness,Poor Clothing Fit Impairments Comments Difficulty with walking, hard to wear regular shoes (nothing with a tie/lace), fatigue and ache in the legs which progresses throughout the day Problem List Problem List Limited Knowledge of Lymphedema Treatment/Condition /Precautions,Limited Knowledge of Skin Care & Infection Precautions,Significant Risk For Infection For Lymphedema Related Complications,Does Not Have a HEP,Does Not Know How To Bandage For Limb Reduction, Does Not Have Appropriate Compression Garments For LT Management,Presents With Increased Fall Risk Secondary To Lymphedema,Presents With Impaired Mobility/ROM, Financial Insecurity Patient Goals Click To Default Short Term Goals Standard Goals Short Term Goals Goal 1: Patient and or caregiver will understand lymphedema precautions to decrease risk of infection and further lymphedema related complications Goal 2: Patient will develop a tolerance for wearing multi- layer, short stretch bandages between treatment sessions to facilitate limb decongestion Goal 3: Patient will experience decreased edema in order to improve tissue health and decrease risk for infection/cellulitis Goal 4: Patient will perform HEP with minimal assistance in order to improve lymphatic flow and venous return Goal 5: Patient will perform self MLD protocol with minimal assistance to help reduce swelling and improve ROM and mobility Click To Default Correction Goals Standard 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 Goal 8: Patient and/or caregiver will be independent with HEP and lymphedema management to reduce risk for edema relapse and to reduce risk for infection Treatment Plan Treatment Plan Evaluation,Edema Control, Manual Therapy,Wound Care/Scar Management,Therapeutic Exercise,Therapeutic Activities,Self-Care/Home Management,Caregiver Training, Education Expected Frequency 1-2x Week Expected Duration 8-10 Weeks Certification Certification I Certify That: Therapy Services Provided, Therapy Plan Established, Therapy Plan Reviewed Recertification Information Recertification Information Initial Certification Date 07/06/23 Recertification Due Date 10/05/23 Provider Signature Shows Agreement With POC & Medical Necessity Physician Comment/Change Comment or Changes Physician NPI Number #
== END 2023-09-09 14:07 | disposition home or self-care (01) ==
PROVIDERS: PCP Family Medicine; Visit Provider Surgery
DX: I89.0 Lymphedema, not elsewhere classified (principal); Z51.89 Encounter for other specified aftercare
CPT/HCPCS: 97110; 97140; 97167; X5282

== ENCOUNTER 2023-09-14 21:36 | Emergency (ER) | payer BC, SELFPAY ==
[2023-09-14 22:23] VITALS: BP 127/85; PULSE 111; RESP 22; TEMP 36.7; O2SAT 94; BMI 48.5
--- NOTE | 2023-09-14 22:29 | CRLHL7_ITS ---
For Patients: As a result of the Century Cures Act, medical imaging exams and procedure reports are released immediately into your electronic medical record. You may view this report before your referring provider. If you have questions, please contact your health care provider. INDICATION: Top of foot and ankle pain. TECHNIQUE: Right ankle 3 views. Permanently recorded images are archived. COMPARISON: Right foot radiographs from the same day. FINDINGS: Prominent soft tissue swelling about the right ankle and distal lower extremity. No acute fracture. Alignment is normal. The joint spaces are preserved. The talar dome is intact. No definite ankle joint effusion. Tiny posterior calcaneal enthesophyte. IMPRESSION: Prominent soft tissue swelling about the right ankle and distal lower extremity. No acute bony abnormality. Dictated by Florentin Bates MD @ 09/14/2023 11:51:50 PM (Electronically Signed)
--- NOTE | 2023-09-14 22:31 | CRLHL7_ITS ---
For Patients: As a result of the Century Cures Act, medical imaging exams and procedure reports are released immediately into your electronic medical record. You may view this report before your referring provider. If you have questions, please contact your health care provider. INDICATION: Top of foot and ankle pain. TECHNIQUE: 2 views of the right foot. Permanently recorded images are archived. COMPARISON: Right ankle radiographs from the same day. FINDINGS: Circumferential soft tissue swelling about the ankle. No acute fracture. Normal alignment. Mild degenerative changes of the great toe interphalangeal joint. No aggressive osseous lesion. Tiny posterior calcaneal enthesophyte. IMPRESSION: No acute bony abnormality. Dictated by Florentin Bates MD @ 09/14/2023 11:53:21 PM (Electronically Signed)
--- NOTE | 2023-09-15 00:13 | ED.GENADULT ---
HPI - General Adult General Chief complaint: Extremity Pain/Injury, Lower Stated complaint: right foot injury Time Seen by Provider: 09/15/23 00:02 Source: patient Mode of arrival: ambulatory Limitations: no limitations History of Present Illness HPI narrative: 38-year-old male presents the emergency department with a 4 day history of pain in his right foot. Patient reports that he was walking in his kitchen. He commonly sleep walks. He reports that he awoke standing in the kitchen, about to fall. When he went to correct himself, he fell backwards with his foot folded underneath him and now has pain on the dorsal surface of the 1st 2nd and 3rd distal metacarpal heads. No difficulty moving toes, no numbness or tingling. He is able to bear weight but reports increased pain when doing so. A little bit of pain in the lateral ankle as well. He does have chronic lymphedema per his report and states that this is stable. No redness, no broken skin. Has been taking ibuprofen 800 mg every 4-5 hours and Excedrin 2 tablets a couple of times per day for pain. This does help temporarily. No prior history of significant fractures or surgery to the foot. Does not use anticoagulants. No history of neuropathy or other unusual conditions. No difficulty moving the foot in any particular direction. Past medical history notable for obstructive sleep apnea, obesity, chronic lymphedema. ROS notable for the right foot and ankle pain as described above, otherwise negative for other generalized, musculoskeletal, neurological or skin concerns. Related Data Home Medications Medication Instructions Recorded Confirmed No Known Home Medications 06/06/23 06/23/23 Allergies Allergy/AdvReac Type Severity Reaction Status Date / Time No Known Drug Allergies Allergy Verified 06/23/23 13:07 [facility] Medical History Obstructive sleep apnea ?G47.33 - Obstructive sleep apnea (adult) (pediatric) (ICD-10) Edema ?R60.9 - Edema, unspecified (ICD-10) Hyperlipidemia ?E78.5 - Hyperlipidemia, unspecified (ICD-10) Allergic rhinitis ?J30.9 - Allergic rhinitis, unspecified (ICD-10) Lymphedema of right lower extremity ?I89.0 - Lymphedema, not elsewhere classified (ICD-10) Lower gastrointestinal hemorrhage ?K92.2 - Gastrointestinal hemorrhage, unspecified (ICD-10) Gout ?M10.9 - Gout, unspecified (ICD-10) External hemorrhoids ?K64.4 - Residual hemorrhoidal skin tags (ICD-10) Surgical History History of umbilical hernia repair ?Z98.890 - Other specified postprocedural states (ICD-10) ?Z87.19 - Personal history of other diseases of the digestive system (ICD-10) Social History Narrative: works for [employer], smokes 1/2 PPD. Minimal Alcohol Smoking Status: Current every day smoker What tobacco products do you use: cigarettes How often do you have a drink containing alcohol: monthly or less How many standard drinks containing alcohol do you have on a typical day: 1 or 2 AUDIT-C Alcohol total score: 1 Non-prescribed substance use: denies use Little interest or pleasure in doing things: several days Feeling down, depressed, or hopeless: not at all service: No Exam Const: Vital Signs, click to edit/add: Vital Signs - 24 hr 09/14/23 22:23 Temperature 98.0 F Pulse Rate [Pulse Oximeter] 111 H Respiratory Rate 22 Blood Pressure [Ri ght Upper Arm] 127/85 Pulse Oximetry 94 Oxygen Delivery Me thod Room Air Documenting provider has reviewed patient's vital signs: yes Common normals: no apparent distress and alert General appearance: cooperative HENMT: Mouth: oral and palatal mucosa normal Throat: posterior oropharynx normal Eye: General eye: normal appearance of both eyes Neck & C-Spine: General: normal visual inspection Resp: Common normals: normal respiratory effort Effort & inspection: able to speak in complete sentences Cardio: Other: Regular DP pulses. Extremity: Other: Chronic venous stasis changes to lower extremities, no ulcerations. No effusions anywhere on the foot or ankle, right side. Toes move normally, completely normal range of motion of foot. Minimal bony tenderness but it is diffuse throughout the distal metatarsal heads, no tenderness over the sesamoid bones. The ankle has no point bony tenderness as well. Normal strength. Normal capillary refill. Neuro: Sensorium/orientation: alert Speech: speech normal Gait (neuro): normal gait Motor exam: strength 5/5 throughout and no movement abnormalities noted Psych: Attitude: calm Mood and affect: euthymic mood Insight: fair Judgement: fair Skin: Common normals: no rashes or lesions noted General skin exam: no rashes or lesions noted Course Course ED Course: X-ray recommended, performed and reviewed, negative. Counseled patient on findings. Do not recommend any particular treatments other than compressive stockings, symptomatic [id number] pain medication and time. Wear supportive footwear and follow-up with primary care if not improving 4 weeks post injury. Typical alarm symptoms reviewed, proper dosing [id number] medications reviewed. All questions answered, no further questions. Vital Signs Vital signs: Initial Vital Signs Temperature 98.0 F 09/14/23 22:23 Temperature Source Temporal Artery Scan 09/14/23 22:23 Pulse Rate 111 H 09/14/23 22:23 Respiratory Rate 22 09/14/23 22:23 Blood Pressure 127/85 09/14/23 22:23 Blood Pressure Mean 99 09/14/23 22:23 Blood Pressure Position Sitting 09/14/23 22:23 Pulse Oximetry 94 09/14/23 22:23 Oxygen Delivery Method Room Air 09/14/23 22:23 Vital Signs Temperature 98.0 F 09/14/23 22:23 Pulse Rate 111 H 09/14/23 22:23 Respiratory Rate 22 09/14/23 22:23 Blood Pressure 127/85 09/14/23 22:23 Pulse Oximetry 94 09/14/23 22:23 Oxygen Delivery Method Room Air 09/14/23 22:23 Temperature 98.0 F 09/14/23 22:23 Pulse Rate 111 H 09/14/23 22:23 Respiratory Rate 22 09/14/23 22:23 Blood Pressure 127/85 09/14/23 22:23 Pulse Oximetry 94 09/14/23 22:23 Oxygen Delivery Method Room Air 09/14/23 22:23 Medical Decision Making Imaging Data Ankle x-ray R: Attestation: I have reviewed the pertinent imaging results. My impression: Negative Radiologist's impression: IMPRESSION: Prominent soft tissue swelling about the right ankle and distal lower extremity. No acute bony abnormality. Right foot x-ray: Attestation: I have reviewed the pertinent imaging results. My impression: Negative foot x-ray Radiologist's impression: FINDINGS: Circumferential soft tissue swelling about the ankle. No acute fracture. Normal alignment. Mild degenerative changes of the great toe interphalangeal joint. No aggressive osseous lesion. Tiny posterior calcaneal enthesophyte. IMPRESSION: No acute bony abnormality. Discharge Plan Discharge Clinical Impression: Foot sprain Patient Disposition: Home, Self-Care Condition: Stable Instructions: Foot Sprain (ED) Additional Instructions: As we discussed, there are no signs of fracture. Your injury is most likely consistent with a sprain which is a bruising of the bone, ligaments and tendons from your fall. I do not detect any severe tendon or nerve injuries. This will likely hurt for a couple more weeks but it is okay for you to bear weight and perform all typical activities, you will not delay your healing. For pain, use Tylenol 1000 mg every 6 hours as needed and or ibuprofen 600 mg every 6 hours. If things are still bothersome in 4 weeks, I would recommend that you make a follow-up appoint with her primary care doctor and discuss advanced imaging, this is very unlikely to be necessary. Activity Level: Activity as Tolerated Discharge Diet: Regular Prescriptions: No Action No Known Home Medications Follow Up/Referrals: Ap Carl MD [Primary Care Provider] - Stand Alone Forms: [employer] Info Instructions
== END 2023-09-15 00:25 | disposition home or self-care (01) ==
LOC: ED 09-15 00:19
PROVIDERS: Emergency Provider Family Medicine; PCP Family Medicine
DX: S93.601A Unspecified sprain of right foot, initial encounter (principal); X50.1XXA Overexertion from prolonged static or awkward postures, initial encounter
CPT/HCPCS: 73610; 73620; 99283

== ENCOUNTER 2023-10-09 21:33 | Emergency (ER) | payer BC, SELFPAY ==
[2023-10-09 22:13] VITALS: BP 117/71; PULSE 115; RESP 20; TEMP 36.4; O2SAT 92; BMI 49.7
--- NOTE | 2023-10-09 23:32 | ED.GENADULT ---
HPI - General Adult General Chief complaint: Extremity Pain/Injury, Upper Stated complaint: pain in shoulder Time Seen by Provider: 10/09/23 23:27 History of Present Illness HPI narrative: Patient is a 38-year-old gentleman who comes in today with chronic shoulder pain. He was seen in urgent care earlier today and had a unremarkable x-ray of his shoulder. The pain stems from an injury many years ago. The pain is in the deep right shoulder capsule with no radiculopathy. He has had no fevers no chills no night sweats no cough no shortness of breath. No numbness no tingling no weakness. He has markedly reduced range of motion secondary to discomfort but no significant swelling or redness. Related Data Home Medications Medication Instructions Recorded Confirmed No Known Home Medications 06/06/23 10/09/23 Allergies Allergy/AdvReac Type Severity Reaction Status Date / Time No Known Drug Allergies Allergy Verified 10/09/23 18:08 Review of Systems Status of ROS: Reports: 10 or more systems reviewed and unremarkable except as noted in History and below [facility] Medical History Obstructive sleep apnea ?G47.33 - Obstructive sleep apnea (adult) (pediatric) (ICD-10) Edema ?R60.9 - Edema, unspecified (ICD-10) Hyperlipidemia ?E78.5 - Hyperlipidemia, unspecified (ICD-10) Allergic rhinitis ?J30.9 - Allergic rhinitis, unspecified (ICD-10) Lymphedema of right lower extremity ?I89.0 - Lymphedema, not elsewhere classified (ICD-10) Lower gastrointestinal hemorrhage ?K92.2 - Gastrointestinal hemorrhage, unspecified (ICD-10) Gout ?M10.9 - Gout, unspecified (ICD-10) External hemorrhoids ?K64.4 - Residual hemorrhoidal skin tags (ICD-10) Surgical History History of umbilical hernia repair ?Z98.890 - Other specified postprocedural states (ICD-10) ?Z87.19 - Personal history of other diseases of the digestive system (ICD-10) Social History Narrative: works for [employer], smokes 1/2 PPD. Minimal Alcohol Smoking Status: Current every day smoker What tobacco products do you use: cigarettes How often do you have a drink containing alcohol: monthly or less How many standard drinks containing alcohol do you have on a typical day: 1 or 2 AUDIT-C Alcohol total score: 1 Non-prescribed substance use: denies use Little interest or pleasure in doing things: several days Feeling down, depressed, or hopeless: not at all service: No Exam Narrative: Exam Narrative: EXAM GENERAL: Patient appears comfortable but morbidly obese. EYES: No scleral icterus. LYMPH: No supraclavicular or cervical lymphadenopathy. SKIN: Visible skin seen during exam normal or with benign process only. EXT: No dependent lower extremity pedal edema. Limited range of motion of the right shoulder no other palpable abnormalities. HEART: Regular rate and rhythm with no murmurs, rubs, or gallops. LUNGS: Clear to auscultation bilaterally with no crackles or wheezes. ABD: Soft, non tender, non distended. PSYCH: Good eye contact, speech is not pressured. Const: Vital Signs, click to edit/add: Vital Signs - 24 hr 10/09/23 22:13 Temperature 97.6 F Pulse Rate [Pulse Oximeter] 115 H Respiratory Rate 20 Blood Pressure [Ri ght Upper Arm] 117/71 Pulse Oximetry 92 Oxygen Delivery Me thod Room Air Course Course ED Course: Patient seen examined. Vital Signs Vital signs: Initial Vital Signs Temperature 97.6 F 10/09/23 22:13 Temperature Source Temporal Artery Scan 10/09/23 22:13 Pulse Rate 115 H 10/09/23 22:13 Respiratory Rate 20 10/09/23 22:13 Blood Pressure 117/71 10/09/23 22:13 Blood Pressure Mean 86 10/09/23 22:13 Blood Pressure Position Sitting 10/09/23 22:13 Pulse Oximetry 92 10/09/23 22:13 Oxygen Delivery Method Room Air 10/09/23 22:13 Vital Signs Temperature 97.6 F 10/09/23 22:13 Pulse Rate 115 H 10/09/23 22:13 Respiratory Rate 20 10/09/23 22:13 Blood Pressure 117/71 10/09/23 22:13 Pulse Oximetry 92 10/09/23 22:13 Oxygen Delivery Method Room Air 10/09/23 22:13 Temperature 97.6 F 10/09/23 22:13 Pulse Rate 115 H 10/09/23 22:13 Respiratory Rate 20 10/09/23 22:13 Blood Pressure 117/71 10/09/23 22:13 Pulse Oximetry 92 10/09/23 22:13 Oxygen Delivery Method Room Air 10/09/23 22:13 Medical Decision Making MDM Narrative Medical decision making narrative: Patient is a 38-year-old gentleman comes in with chronic right shoulder pain that was evaluated earlier today. Patient refuse anti-inflammatories at the office and refuses injection tonight. I did mention that we do not do MRIs at night I did recommend follow-up with orthopedics. Patient feels comfortable with following up with Orthopedics and no further intervention at this time. Discharge Plan Discharge Clinical Impression: Chronic pain in shoulder Patient Disposition: Home, Self-Care Condition: Stable Instructions: Shoulder Pain (ED) Additional Instructions: Tylenol Motrin Rest Ice Follow-up with orthopedics this coming week. Activity Level: No Restrictions Discharge Diet: Regular Prescriptions: No Action No Known Home Medications Follow Up/Referrals: Ap Carl MD [Primary Care Provider] - Stand Alone Forms: [employer] Info Instructions
[2023-10-09 23:38] VITALS: BP 115/68; PULSE 99; RESP 20; TEMP 36.7; O2SAT 92
[2023-10-09 23:46] VITALS: BP 115/68; PULSE 99; RESP 20; TEMP 36.7
== END 2023-10-09 23:47 | disposition home or self-care (01) ==
LOC: ED 23:41
PROVIDERS: Emergency Provider Internal Medicine; PCP Family Medicine
DX: M25.511 Pain in right shoulder (principal)
CPT/HCPCS: 99283

== ENCOUNTER 2024-04-01 00:14 | Emergency (ER) | payer BC, SELFPAY ==
[2024-04-01 00:19] VITALS: BP 104/74; PULSE 94; RESP 24; TEMP 36.7; O2SAT 96; BMI 49.4
--- NOTE | 2024-04-01 00:46 | ED.GENADULT ---
HPI - General Adult General Date Seen: 04/01/24 Chief complaint: Lower Extremity Swelling Stated complaint: Swollen R Leg Time Seen by Provider: 04/01/24 00:22 Source: patient Mode of arrival: ambulatory Limitations: no limitations History of Present Illness HPI narrative: 39-year-old male who comes in just after midnight with complaints of pain and burning in his right leg. He noticed this while he was at work that the leg felt swollen and painful. He has chronic lymphedema and generally wears compression stocking during the day and takes it off at night. This usually helps keep his swelling down but today he could not tolerate having the stocking on due to discomfort. He denies any chest pains or shortness of breath. He has severe obstructive sleep apnea and is supposed to use BiPAP but does not. He has had leg cellulitis on several occasions requiring antibiotics. He has a bad habit of picking at his skin and has dozens of small ulcerations on each leg from this. No history of DVT. No recent immobilization or travel. No fevers or chills. No purulent drainage from any of the lesions. He has chronic serous drainage from one of the deeper ulcerations. Related Data Previous Rx's ?Medication ?Instructions ?Recorded tamsulosin 0.4 mg capsule (Flomax) 0.4 mg PO QHS #90 caps 01/20/24 cephalexin 500 mg capsule 500 mg PO TID #30 caps 04/01/24 furosemide 20 mg tablet 20 mg PO DAILY #30 tabs 04/01/24 Allergies Allergy/AdvReac Type Severity Reaction Status Date / Time No Known Drug Allergies Allergy Verified 04/01/24 00:21 Review of Systems Narrative: Review of systems is significant for severe obstructive sleep apnea which is currently untreated. He is supposed to use a BiPAP machine but does not tolerated. He has a follow-up sleep study at [place] in the end of May. He is on Flomax for nocturia. Review of systems is otherwise noted to be negative. [facility] Medical History (Updated 04/01/24 @ 01:33 by Ap Carl MD) Erectile dysfunction ?N52.9 - Male erectile dysfunction, unspecified (ICD-10) Morbid obesity ?E66.01 - Morbid (severe) obesity due to excess calories (ICD-10) Obstructive sleep apnea ?G47.33 - Obstructive sleep apnea (adult) (pediatric) (ICD-10) Hyperlipidemia ?E78.5 - Hyperlipidemia, unspecified (ICD-10) Allergic rhinitis ?J30.9 - Allergic rhinitis, unspecified (ICD-10) Lymphedema of right lower extremity ?I89.0 - Lymphedema, not elsewhere classified (ICD-10) Lower gastrointestinal hemorrhage ?K92.2 - Gastrointestinal hemorrhage, unspecified (ICD-10) Gout ?M10.9 - Gout, unspecified (ICD-10) External hemorrhoids ?K64.4 - Residual hemorrhoidal skin tags (ICD-10) Surgical History H/O toe surgery ?Z98.890 - Other specified postprocedural states (ICD-10) History of umbilical hernia repair (2019) ?Z98.890 - Other specified postprocedural states (ICD-10) ?Z87.19 - Personal history of other diseases of the digestive system (ICD-10) Social History (Reviewed 10/13/23 @ 10:38 by Taylor Pabon ~ [facility], [facility]) Narrative: works for [employer], smokes 1/2 PPD. Minimal Alcohol Smoking Status: Current every day smoker What tobacco products do you use: cigarettes How often do you have a drink containing alcohol: monthly or less How many standard drinks containing alcohol do you have on a typical day: 1 or 2 AUDIT-C Alcohol total score: 1 Non-prescribed substance use: denies use Little interest or pleasure in doing things: several days Feeling down, depressed, or hopeless: not at all service: No Exam Narrative: Exam Narrative: Vitals noted. HEENT: Conjunctiva clear. Chronic nasal congestion. Posterior pharynx is clear without erythema or exudate. Neck is supple without adenopathy. No jugular venous distension. Lungs: Clear to auscultation in all sch[place]. No wheezes, rales, rhonchi. Heart: Regular rate and rhythm without murmur. Abdomen: Obese, Soft and nontender. No guarding, rigidity, rebound. Bowel sounds are normal. No palpable masses. Extremities: He has warmth and redness to the right calf. It is tender to palpation. Homans sign is negative. He has numerous shallow ulcerations from picking at his skin. He has clear drainage from the deepest one on his medial right calf. There are dozens of these small ulcerations on each leg. He has [place] edema of both ankles but there is no warmth or tenderness on the left. No lymphangitic streaking. Neurologic: Awake, alert, fully oriented. Neurologic exam is nonfocal. Const: Vital Signs, click to edit/add: Vital Signs - 24 hr 04/01/24 00:19 04/01/24 01:25 Temperature 98.0 F Pulse Rate [Right Pulse Oximeter] 94 104 H Respiratory Rate 24 18 Blood Pressure [Ri ght Upper Arm] 104/74 118/87 Pulse Oximetry 96 95 Oxygen Delivery Me thod Room Air Room Air Course Course ED Course: Patient seen and examined. He appears to have cellulitis of his right ankle with chronic edema and lymphedema. The source of infection appears to be neurodermatitis. Labs are ordered including blood culture, CBC, BMP, D-dimer. IV is established he is given 2 g of Rocephin. Reevaluation(s) Reevaluation #1: D-dimer is negative. CBC is normal. Basic metabolic panel is normal. His pain is improved with the antibiotics. He was resting comfortably. I have encouraged him to take a day or two off work in elevate his leg. He is not certain if he can do that. He is prescribed furosemide 20 mg daily and Keflex 500 mg t.i.d.. I will see him in the clinic in about 10 days, sooner if symptoms are worsening or not improving. Vital Signs Vital signs: Initial Vital Signs Temperature 98.0 F 04/01/24 00:19 Temperature Source Temporal Artery Scan 04/01/24 00:19 Pulse Rate 94 04/01/24 00:19 Respiratory Rate 24 04/01/24 00:19 Blood Pressure 104/74 04/01/24 00:19 Blood Pressure Mean 84 04/01/24 00:19 Blood Pressure Position Sitting 04/01/24 00:19 Pulse Oximetry 96 04/01/24 00:19 Oxygen Delivery Method Room Air 04/01/24 00:19 Vital Signs Temperature 98.0 F 04/01/24 00:19 Pulse Rate 94 04/01/24 00:19 Respiratory Rate 24 04/01/24 00:19 Blood Pressure 104/74 04/01/24 00:19 Pulse Oximetry 96 04/01/24 00:19 Oxygen Delivery Method Room Air 04/01/24 00:19 Temperature 98.0 F 04/01/24 00:19 Pulse Rate 104 H 04/01/24 01:25 Respiratory Rate 18 04/01/24 01:25 Blood Pressure 118/87 04/01/24 01:25 Pulse Oximetry 95 04/01/24 01:25 Oxygen Delivery Method Room Air 04/01/24 01:25 Medications Administered Medications: Generic Name Dose Route Start Last Admin Trade Name Freq PRN Reason Stop Dose Admin Ceftriaxone Sodium 2 gm/ 100 mls @ 200 mls/hr 04/01/24 00:42 04/01/24 01:24 Sodium Chloride IVPB 04/01/24 00:43 Infused ONCE ONE Infusion Medical Decision Making Lab Data Labs: Lab Results 04/01/24 Range/Units 00:50 WBC 10.88 (4.50-11.00) K/uL RBC 4.54 (4.30-5.90) m/uL Hgb 14.1 (13.5-17.5) gm/dL Hct 43.2 (37.0-53.0) % MCV 95 (80-100) fL MCH 31 (26-34) pg MCHC 33 (32-36) gm/dL RDW Coeff of Ceasar 14.3 (11.5-15.5) % Plt Count 196 (140-440) K/uL Neut % (Auto) 80.2 H (42.0-72.0) % Lymph % (Auto) 9.7 L (20-44) % Blaine % (Auto) 8.6 (0.0-11.0) % Eos % (Auto) 0.6 (0.0-7.0) % Baso % (Auto) 0.3 (0.0-3.0) % Neut # (Auto) 8.70 H (1.7-7.0) K/uL Lymph # (Auto) 1.10 (0.90-2.90) K/uL Blaine # (Auto) 0.90 (0.00-0.90) K/UL Eos # (Auto) 0.07 (0.00-0.50) K/uL Baso # (Auto) 0.03 (0.00-0.30) K/uL Abs Immat Gran (auto) 0.07 (0.00-0.30) K/uL Imm/Tot Granulo (auto) 0.6 % D-Dimer Quant (PE/DVT) 0.37 (0.00-0.50) ug/ml Sodium 137 (135-149) mmol/L Potassium 4.1 (3.6-5.1) mmol/L Chloride 102 (96-114) mmol/L Carbon Dioxide 31 (20-32) mmol/L Anion Gap 4 L (7-15) mEq/L BUN 19 (5-24) mg/dL Creatinine 0.9 (0.5-1.5) mg/dL Estimated Creat Clear 131.71 Estimated GFR 111 ml/min Glucose 116 H (60-115) mg/dL Calcium 8.9 (8.4-10.6) mg/dL Discharge Plan Discharge Clinical Impression: Cellulitis, Lymphedema of right lower extremity Patient Disposition: Home, Self-Care Condition: Improved Additional Instructions: Tylenol or ibuprofen for pain. Elevate the leg as much as possible. Keflex 500 mg 3 times a day for 10 days. Lasix 20 mg daily. Follow-up in the clinic in 10-14 days. Return to the emergency department for high fevers, shaking chills, worsening pain. Prescriptions: New furosemide 20 mg tablet 20 mg PO DAILY Qty: 30 1RF cephalexin 500 mg capsule 500 mg PO TID Qty: 30 0RF No Action tamsulosin [Flomax] 0.4 mg capsule 0.4 mg PO QHS Qty: 90 1RF Follow Up/Referrals: Ap Carl MD [Primary Care Provider] - Stand Alone Forms: [facility] Info Instructions
--- OUTSIDE RECORDS SUMMARY | 2024-04-01 00:48 | XMS_ITS | Clinical Summary ---
Author Organization [facility] Address [place], [place] [address] Care Team Providers Care Route Clerk Name Role Phone Pcp, No Primary Care Provider Unavailabl e Allergies No known active allergies Medications No known medications Active Problems Problem Noted Date Diagnosed Date Gout 05/27/2014 Cellulitis of left lower leg 06/29/2013 Immunizations Name Administration Dates Next Due AMB Influenza, IIV3 (Age >=3 years)(Flu Clinic Only) 08/13/2009 DTaP 09/20/1986,1985,1985 Influenza, IIV3 (Age >=3 years) 08/13/2009 MMR 07/19/1986 Polio Virus, Unspecified 09/20/1986,1985 Tdap 04/22/2016 Social History Tobacco Use Types Packs/Day Years Used Date Smoking Tobacco: Every Day Cigarettes Smokeless Tobacco: Never Tobacco Cessation:Ready to Q uit: No; Counseling Given: Yes Alcohol Use Standard Drinks/Week Comments No 0 (1 standard drink = 0.6 oz pur e alcohol) rare PHQ-2 Answer Date Recorded PHQ-2 Score 0 01/09/2019 Sex and Gender Information Value Date Recorded Sex Assigned at Not on file Gender Identity Not on file Sexual Orientation Not on file Obstetrics History Last Filed Vital Signs Vital Sign Reading Time Taken Comments Blood Pressure 142/89 05/06/2018 9:26 AM CDT Pulse 92 05/06/2018 9:23 AM CDT Temperature 36.6 ??C (97.9 ??F) 05/06/2018 9:23 AM CD T Respiratory Rate - - Oxygen Saturation 98% 05/06/2018 9:23 AM CDT Inhaled Oxygen Concentration - - Weight 141.1 kg (311 lb) 05/06/2018 9:23 AM CDT Height 189 cm (6' 2.41) 12/30/2017 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 Body Mass Index 39.49 12/30/2017 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 Plan of Treatment Health Maintenance Due Date Last Done Comments HIV for age 15-65 01/30/2000 Hepatitis C screening for age 18-79 2003 BMI (ht and wt on same day) for age 18+ 12/30/2018 12/30/2017, 11/13/2016, 06/26/2016, Additional history exists Depression screening for age 12+ 05/06/2019 05/06/2018, 11/13/2016 Lipids for age 35-44 01/30/2020 COVID-19 vaccine series (2022- season) 2023 Influenza for age 9-49 07/10/2024 08/13/2009, 2008 Tetanus booster 04/22/2026 04/22/2016 Tdap Completed 04/22/2016 Pneumococcal series for age 6-64 Aged Out No longer eligible based on patient's age to complete this topic Care Teams Route Clerk Relationship Specialty Start Date End Date Pcp, No . PCP - General 05/27/14
[2024-04-01] MEDS: cefTRIAXone 2 GM in 0.9 % SODIUM CHLORIDE Mini-bag 100 ML IVPB (00:51)
[2024-04-01 00:56] LABS: Basophils Absolute Auto 0.03 K/uL (0.00-0.30); Basophils Percent Auto 0.3 % (0.0-3.0); Eosinophils Absolute Auto 0.07 K/uL (0.00-0.50); Eosinophils Percent Auto 0.6 % (0.0-7.0); Hematocrit 43.2 % (37.0-53.0); Hemoglobin* 14.1 gm/dL (13.5-17.5); Immature Granulocytes Abs Auto 0.07 K/uL (0.00-0.30); Immature Granulocytes Pct Auto 0.6 %; Lymphocytes Percent Auto 9.7 % (20-44); Mean Corpuscular HGB Conc 33 gm/dL (32-36); Mean Corpuscular Hemoglobin 31 pg (26-34); Mean Corpuscular Volume 95 fL (80-100); Monocytes Percent Auto 8.6 % (0.0-11.0); Neutrophils Percent Auto 80.2 % (42.0-72.0); Platelet Count* 196 K/uL (140-440); RDW Coefficient of Variation % 14.3 % (11.5-15.5); Red Blood Count 4.54 m/uL (4.30-5.90); White Blood Count* 10.88 K/uL (4.50-11.00)
[2024-04-01 00:57] LABS: Slide Review Reflex No
[2024-04-01 01:12] LABS: Chloride* 102 mmol/L (96-114); Sodium* 137 mmol/L (135-149)
[2024-04-01 01:13] LABS: Potassium* 4.1 mmol/L (3.6-5.1)
[2024-04-01 01:15] LABS: Creatinine* 0.9 mg/dL (0.5-1.5); Est. Creatinine Clearance* 131.71; Estimated Glomerular Filt Rate 111 ml/min
[2024-04-01 01:16] LABS: Anion Gap 4 mEq/L (7-15); Blood Urea Nitrogen* 19 mg/dL (5-24); Calcium* 8.9 mg/dL (8.4-10.6); Carbon Dioxide* 31 mmol/L (20-32); Glucose* 116 mg/dL (60-115)
[2024-04-01 01:19] LABS: D Dimer Quantitative* 0.37 ug/ml (0.00-0.50)
[2024-04-01 01:25] VITALS: BP 118/87; PULSE 104; RESP 18; O2SAT 95
[2024-04-01 01:40] VITALS: BP 118/87; PULSE 94; RESP 18; TEMP 36.7
== END 2024-04-01 01:40 | disposition home or self-care (01) ==
PROVIDERS: Emergency Provider Family Medicine; PCP Family Medicine
DX: L03.115 Cellulitis of right lower limb (principal); R59.0 Localized enlarged lymph nodes
CPT/HCPCS: 36415; 80048; 85025; 85379; 87040; 96365; 99282; 99284; J0696

== ENCOUNTER 2024-05-23 00:12 | Emergency (ER) | payer BC, SELFPAY ==
[2024-05-23 00:24] VITALS: BP 150/113; PULSE 111; RESP 18; TEMP 36.2; O2SAT 94; BMI 48.9
[2024-05-23] MEDS: DOXYCYCLINE HYCLATE 100 MG PO (00:55)
--- NOTE | 2024-05-23 00:57 | ED.GENADULT ---
HPI - General Adult General Chief complaint: Extremity Pain/Injury, Lower Stated complaint: RT leg pain Time Seen by Provider: 05/23/24 00:35 Source: patient Mode of arrival: ambulatory Limitations: no limitations History of Present Illness HPI narrative: 39-year-old male presents the emergency department with tenderness and achiness in the right leg for the past 5-6 hours. Tried taking some ibuprofen at home with no significant improvement in symptoms. No fevers, no chills, nausea or vomiting. Has not tried any other interventions. Has chronic swelling in his legs and chronic ulcers. Admits that he does pick at his skin at times as well. Has a history of cellulitis including in this leg in the past and says that it feels similar. No history of DVT or PE. Has some weeping but does not have any purulent drainage. No new trauma or injury. No joint pain. No other affected areas. Seem to start at the right inner mid calf area where he has a ulceration. He is prescribed furosemide which he states does not really seem to help much and he states that he does wear compression stockings. They are not in place today and he does not have any markings on his skin that would indicate that he had recently worn them. His only new medication is Ozempic. History of morbid obesity, chronic venous stasis ulcers and edema. Nonsmoker. ROS is notable for the leg symptoms as described above only. Otherwise he denies times 12 systems. Related Data Previous Rx's ?Medication ?Instructions ?Recorded semaglutide 0.25 mg or 0.5 mg (2 0.25 mg (0.368 mL) subcut QWEEK #3 04/18/24 mg/3 mL) subcutaneous pen injector mL (Ozempic) furosemide 20 mg tablet 20 mg PO DAILY #30 tabs 04/26/24 doxycycline hyclate 100 mg capsule 100 mg PO BID #20 caps 05/23/24 sulfamethoxazole 800 1 tab PO BID 10 days #20 tabs 05/23/24 mg-trimethoprim 160 mg tablet (Bactrim DS) Allergies Allergy/AdvReac Type Severity Reaction Status Date / Time No Known Drug Allergies Allergy Verified 04/18/24 14:19 [facility] Medical History Erectile dysfunction ?N52.9 - Male erectile dysfunction, unspecified (ICD-10) Morbid obesity ?E66.01 - Morbid (severe) obesity due to excess calories (ICD-10) Obstructive sleep apnea ?G47.33 - Obstructive sleep apnea (adult) (pediatric) (ICD-10) Hyperlipidemia ?E78.5 - Hyperlipidemia, unspecified (ICD-10) Allergic rhinitis ?J30.9 - Allergic rhinitis, unspecified (ICD-10) Lymphedema of right lower extremity ?I89.0 - Lymphedema, not elsewhere classified (ICD-10) Lower gastrointestinal hemorrhage ?K92.2 - Gastrointestinal hemorrhage, unspecified (ICD-10) Gout ?M10.9 - Gout, unspecified (ICD-10) External hemorrhoids ?K64.4 - Residual hemorrhoidal skin tags (ICD-10) Surgical History H/O toe surgery ?Z98.890 - Other specified postprocedural states (ICD-10) History of umbilical hernia repair (2019) ?Z98.890 - Other specified postprocedural states (ICD-10) ?Z87.19 - Personal history of other diseases of the digestive system (ICD-10) Social History Narrative: works for [employer], smokes 1/2 PPD. Minimal Alcohol Smoking Status: Current every day smoker What tobacco products do you use: cigarettes How often do you have a drink containing alcohol: monthly or less How many standard drinks containing alcohol do you have on a typical day: 1 or 2 AUDIT-C Alcohol total score: 1 Non-prescribed substance use: denies use Little interest or pleasure in doing things: several days Feeling down, depressed, or hopeless: several days service: No Exam Const: Vital Signs, click to edit/add: Vital Signs - 24 hr 05/23/24 00:24 Temperature 97.2 F L Pulse Rate [Pulse Oximeter] 111 H Respiratory Rate 18 Blood Pressure [Ri ght Upper Arm] 150/113 H Pulse Oximetry 94 Oxygen Delivery Me thod Room Air Heart rate is below 90 at the time of my exam Documenting provider has reviewed patient's vital signs: yes Common normals: no apparent distress and alert General appearance: cooperative Orientation/consciousness: Yes awake Other: Good historian. No impairment. HENMT: Common normals: normocephalic Head and scalp: normocephalic Face and sinus: normal facial exam Mouth: oral and palatal mucosa normal Throat: posterior oropharynx normal Eye: Common normals: conjunctivae normal General eye: normal appearance of both eyes Conjunctiva: conjunctiva(e) normal Neck & C-Spine: Common normals: no lymphadenopathy Resp: Common normals: normal respiratory effort and no use of accessory muscles Effort & inspection: able to speak in complete sentences Cardio: Common normals: regular rate, regular rhythm, S1 normal heart sound, S2 normal heart sound and no murmurs Rate: regular rate Rhythm: regular rhythm Heart sounds: S1 normal and S2 normal Extremity: Other: Chronic venous stasis skin changes with hemosiderin deposits, 1+ edema to knee bilaterally. Redness and warmth to right calf centering around medial mid calf area where there is a weeping stasis ulcer that does appear chronic. Area is warm and slightly tender to the touch surrounding about 8 cm in all directions. Foot is not affected by redness. Good capillary refill in all the toes. Knee and ankle joint show no effusions or tenderness. Normal range of motion of the joints. There are no palpable cords, Homans sign is negative. Only mildly more swollen than the opposite side. No tenderness to palpation of thigh, knee or popliteal fossa. Neuro: Sensorium/orientation: awake and alert Speech: speech normal Gait (neuro): normal gait Motor exam: no movement abnormalities noted Psych: Common normals: thought process normal Thought process: normal thought process Attention/concentration: attention grossly intact Memory/cognition: memory grossly intact Insight: insight good Judgement: judgment good Skin: Narrative: Chronic venous stasis ulcers and stasis changes as described above. Does have a few skin picking sores without signs of infection on the arms as well. Course Course ED Course: Tenderness in the right lower extremity most likely consistent with an early cellulitis. Does not have overwhelming features suspicious for DVT. Counseled patient that I do not have ultrasound available for the next 6 hours. Offered to have him wait for availability but I do not see enough signs that would warrant doing so. He agrees. There are no signs of sepsis, fevers or systemic symptoms to warrant blood work. He was agreeable to this as well. We are dangerously short on blood culture bottles and he does not meet criteria to collect these. Cultures do not tend to be helpful from chronic wounds with acute new findings in this scenario. Therefore I do not recommend culturing the weeping from the existing stasis ulcer. I reviewed his chart and do not see any signs of previous cultures available. Will treat with combination of both Bactrim and doxy, 1st dose given in ED. Additional 10 day supply sent to pharmacy. Counseled patient that it will likely look worse before looks better. He needs to elevate his legs and wear his compression stockings. I would like for him to continue taking the furosemide if he is not doing so. Follow-up appointment in 3-4 days to ensure that things are not worsening. Alarm symptoms of sepsis, worsening infection, weakness, etc. were reviewed as indications to come back to the ED right away. He verbalizes understanding and agreement. It will take several weeks for this to heal and it may not be fully resolved by the time he has completed his antibiotics due to the inflammation and chronic stasis. He verbalizes understanding and agreement of this as well. Vital Signs Vital signs: Initial Vital Signs Temperature 97.2 F L 05/23/24 00:24 Temperature Source Temporal Artery Scan 05/23/24 00:24 Pulse Rate 111 H 05/23/24 00:24 Respiratory Rate 18 05/23/24 00:24 Blood Pressure 150/113 H 05/23/24 00:24 Blood Pressure Mean 125 H 05/23/24 00:24 Blood Pressure Position Sitting 05/23/24 00:24 Pulse Oximetry 94 05/23/24 00:24 Oxygen Delivery Method Room Air 05/23/24 00:24 Vital Signs Temperature 97.2 F L 05/23/24 00:24 Pulse Rate 111 H 05/23/24 00:24 Respiratory Rate 18 05/23/24 00:24 Blood Pressure 150/113 H 05/23/24 00:24 Pulse Oximetry 94 05/23/24 00:24 Oxygen Delivery Method Room Air 05/23/24 00:24 Temperature 97.2 F L 05/23/24 00:24 Pulse Rate 111 H 05/23/24 00:24 Respiratory Rate 18 05/23/24 00:24 Blood Pressure 150/113 H 05/23/24 00:24 Pulse Oximetry 94 05/23/24 00:24 Oxygen Delivery Method Room Air 05/23/24 00:24 Medications Administered Medications: Generic Name Dose Route Start Last Admin Trade Name Freq PRN Reason Stop Dose Admin Doxycycline Hyclate 100 mg 05/23/24 00:50 05/23/24 00:55 Doxycycline Hyclate 100 Mg PO 05/23/24 00:51 100 mg ONCE ONE Administration Trimethoprim/Sulfamethoxazole 1 tab 05/23/24 00:50 05/23/24 00:55 Sulfamethoxazole-Tmp Ds 800mg/160mg Tablet PO 05/23/24 00:51 1 tab ONCE ONE Administration Discharge Plan Discharge Clinical Impression: Cellulitis of right leg, Chronic cutaneous venous stasis ulcer Patient Disposition: Home, Self-Care Condition: Stable Instructions: Cellulitis (ED) Additional Instructions: As we discussed, it does look like there is early infection in your right leg. These can be especially difficult to treat when you have chronic swelling and stasis ulcers like yours. Try to wear your compression stockings as much as possible and keep your legs elevated to help with the swelling and drainage. I have started you on a pair of antibiotics, Bactrim and doxycycline. The appearance of the infection may actually worsen for up to a couple of days before it shows signs of any improvement. Clinical appearance does not always correlate with how well the antibiotics are working. It will also take several weeks for the redness and inflammation to go down even though the antibiotics are working. This is fairly complicated and has a lot to do with the chronic inflammation when you have swelling like yours. So try not to worry if things do not look dramatically better shortly after starting antibiotics. I certainly do want you to worry if you are getting very ill. You should not be running high fevers, getting severe weakness, confusion, difficulty breathing or other signs of significant sickness. Of course, the cellulitis tends to be painful. I recommend Tylenol 1000 mg every 6 hours and or ibuprofen 600 mg every 6 hours for the pain. I have given you a few hydrocodone tablets. Try to use these sparingly and just at night if needed. The narcotic medication in it can be sedating and constipating. Remember that you can use sleep aids as well such as 1-2 Benadryl tablets at night and or in combination with 10 mg of melatonin. I would like for you to schedule follow-up appointment in 3-4 days to have this looked at again. Activity Level: No Restrictions Discharge Diet: Regular Prescriptions: New doxycycline hyclate 100 mg capsule 100 mg PO BID Qty: 20 0RF sulfamethoxazole-trimethoprim [Bactrim DS] 800-160 mg tablet 1 tab PO BID 10 Days Qty: 20 0RF No Action Ozempic 0.25 mg or 0.5 mg (2 mg/3 mL) pen injector 0.25 mg subcut QWEEK Qty: 3 1RF Rx Instructions: 0.25 mg weekly x 1 month then 0.5 mg weekly x 1 month then 1 mg weekly furosemide 20 mg tablet 20 mg PO DAILY Qty: 30 4RF Follow Up/Referrals: Ap Carl MD [Primary Care Provider] - Stand Alone Forms: MyHealth Info Instructions
--- OUTSIDE RECORDS SUMMARY | 2024-05-23 00:59 | XMS_ITS | Referral Summary ---
Author Organization [facility] Address [address] [place] [address] Care Team Providers Care Rn Training Name Role Phone Unavailable Primary Care Provider Unavailabl e Source Comments Patient records contain information from all sites at [facility]. For routine questions regarding patient records, call [phone] during business hours, M-F 8:00 AM - 5:00 PM Central Time. Record requests for emergency care only can be directed to [phone] at any time.[facility] Encounters Date Type Department Care Team Description 05/13/2024 9:00 AM CDT [facility] [place], [place] [address] [place] [address] Florentin Leone M.B., Ch.B. Apnea Sleep Obstructive (Primary Dx); Acute Respiratory Failure With Hypercapnia (HCC) 05/09/2024 6:21 AM CDT - 05/12/2024 11:59 PM CDT Hospital Encounter [facility] [place], [place] [address] [place] [phone] Mehreen Drake M.D. Apnea Sleep Obstructive; Hypoxia Discharge Disposition: Home or Self Care 05/08/2024 6:11 PM CDT - 05/11/2024 11:59 PM CDT Hospital Encounter [facility] [place], [place] [address] [place] [phone] Florentin Leone M.B., Ch.B. Apnea Sleep Obstructive Discharge Disposition: Home or Self Care 05/09/2024 9:25 AM CDT - 05/09/2024 11:59 PM CDT Hospital Encounter Department of Laboratory Medicine and Pathology, [facility], in [place], [place] [address] [place] [phone] Florentin Leone M.B., Ch.B. Apnea Sleep Obstructive; Morbid Obesity Body Mass Index >= 35 with Comorbid Condition (HCC) Discharge Disposition: Home or Self Care 05/05/2024 Orders Only [facility] in [place], [place] [address] [place] [phone] Mehreen Drake M.D. Apnea Sleep Obstructive (Primary Dx); Hypoxia 03/23/2024 10:00 AM CDT Comprehensive Visit [facility] in [place], [place] [address] [place] [phone] Florentin Leone M.B., Ch.B. Morbid Obesity Body Mass Index >= 35 with Comorbid Condition (HCC) (Primary Dx); Apnea Sleep Obstructive 03/22/2024 12:30 PM CDT Clinical Communication Virtual Review in [place], [place] [address] [place] [address] Pre-visit Intake from Last 3 Months Allergies Active Allergy Reactions Criticality Noted Date Comments House Dust Other (see comments) 03/22/2024 ITCHY EYES, SNEEZING, BLOCKED SINUSES Pollen Extracts Other (see comments) 03/22/2024 Itchy eyes, sneezing, blocked sinuses Medications Medication Sig Dispensed Refills Start Date End Date Status ibuprofen (ADVIL,MOTRIN) 200 mg capsule Take 600 mg by mouth as needed for pain. Occaisionally as needed Active aspirin-acetaminoph en-caffeine (EXCEDRIN MIGRAINE) 250-250-65 mg per tablet Take 1 tablet by mouth every 6 (six) hours as needed for pain. Active DME Bi-level PAPIndications:Apne a Sleep Obstructive DME Order 1 each 05/13/2024 Active DME OxygenIndications:A cute Respiratory Failure With Hypercapnia (HCC) DME Order - for details see Order Report 1 each 05/13/2024 Active Active Problems Problem Noted Date Diagnosed Date Acute Respiratory Failure With Hypercapnia 05/13 Apnea Sleep Obstructive 03/23/2024 Morbid Obesity Body Mass Ind ex >= 35 with Comorbid Condition 03/23/2024 Social History Tobacco Use Types Packs/Day Years Used Date Smoking Tobacco: Every Day Cigarettes Tobacco Cessation:Ready to Q uit: Not Asked; Counseling Given: Not Answered Nutrition Answer Date Recorded Nutrition: EVOO Fat Source Unknown 01/14 Nutrition: Servings of Fruits/Vegetables per Day Not on file 01/14/2021 Dental Answer Date Recorded Dental: Regular Dentist Unknown 06/24/20 23 Sex and Gender Information Value Date Recorded Sex Assigned at Not on file Gender Identity Not on file Sexual Orientation Not on file Last Filed Vital Signs Vital Sign Reading Time Taken Comments Blood Pressure 135/88 03/23/2024 10:08 AM CDT Pulse 96 03/23/2024 10:08 AM CDT Temperature - - Respiratory Rate - - Oxygen Saturation - - Inhaled Oxygen Concentration - - Weight 177 kg (391 lb 5.1 oz) 03/23/2024 10:08 A M CDT Height 190.2 cm (6' 2.88) 03/23/2024 10:08 AM C DT Body Mass Index 49.07 03/23/2024 10:08 AM CDT Plan of Treatment Not on file Procedures Procedure Name Priority Date/Time Associated Diagnosis Comments BICARBONATE, B/S/P Routine 05/09/2024 9: 38 AM CDT Apnea Sleep Obstructive HEMOGLOBIN A1C, B Routine 05/09/2024 9:3 8 AM CDT Apnea Sleep Obstructive Morbid Obesity Body Mass Index >= 35 with Comorbid Condition (HCC) LIPID PANEL, S Routine 05/09/2024 9:38 AM CDT Apnea Sleep Obstructive CREATININE WITH EGFR, S/P Routine 05/09/2024 9:38 AM CDT Apnea Sleep Obstructive ALKALINE PHOSPHATASE, S/P Routine 05/09/2024 9:38 AM CDT Apnea Sleep Obstructive ASPARTATE AMINOTRANSFERASE (AST), S/P Routine 05/09/2024 9:38 AM CDT Apnea Sleep Obstructive GLUCOSE, FASTING, S/P Routine 05/09/2024 9:38 AM CDT Apnea Sleep Obstructive THYROID FUNCTION CASCADE, S Routine 05/09/2024 9:38 AM CDT Apnea Sleep Obstructive PULMONARY FUNCTION TESTS Routine 024 7:33 AM CDT Apnea Sleep Obstructive ARTERIAL BLOOD GAS - PULMONARY CLINIC Routine 05/09/2024 6:35 AM CDT Apnea Sleep Obstructive Hypoxia POLYSOMNOGRAPHY Routine 05/09/2024 3:18 AM CDT Apnea Sleep Obstructive from Last 3 Months Results * (ABNORMAL) Lipid Panel (05/09/2024 9:38 AM CDT) Triglycerides 327(H) mg/dL 05/09/2024 10:51 AM CDT DTL Comment: ----REFERENCE VALUE---- Normal: <150 mg/dL Borderline High: 150-199 mg/dL High: 200-499 mg/dL Very High: > or =500 mg/dL Cholesterol, Total 233(H) mg/dL 2023 10:51 AM CDT DTL Comment: ----REFERENCE VALUE---- Desirable: < 200 mg/dL Borderline High: 200 - 239 mg/dL High: > or = 240 mg/dL Cholesterol, LDL, Calculated 141(H) mg/dL 05/09/2024 10:51 AM CDT DTL Comment: ----REFERENCE VALUE---- Desirable: <100 mg/dL Above Desirable: 100-129 mg/dL Borderline High: 130-159 mg/dL High: 160-189 mg/dL Very High: >=190 mg/dL ----ADDITIONAL INFORMATION---- LDL cholesterol calculated using the Nichols/NIH equation. Cholesterol, HDL, S 32(L) >=40 mg/dL 05/09/2024 10:51 AM CDT DTL Cholesterol, Non-HDL, Calculated 201(H) mg/dL 05/09/2024 10:51 AM CDT DTL Comment: ----REFERENCE VALUE---- Desirable: <130 mg/dL Above Desirable: 130-159 mg/dL Borderline High: 160-189 mg/dL High: 190-219 mg/dL Very High: > or =220 mg/dL Fasting (8 HR or more) No 05/09/2024 9:38 AM CDT DTL Blood (Blood, Venous) 05/09/2024 9:38 AM CDT 05/09/2024 10:17 AM CDT Florentin Arceo, Ch.B. LAB BLOOD A DD-ON Performing Organization Address [facility] Co de Phone Number [facility] [address] [place] [address], [facility] [address] [place] [address] * Thyroid Function [place] (05/09/2024 9:38 AM CDT) TSH, Sensitive 1.3 0.3 - 4.2 mIU/L 05/09/2024 10:51 AM CDT DTL Blood (Blood, Venous) 05/09/2024 9:38 AM CDT 05/09/2024 10:17 AM CDT Florentin Arceo, Ch.B. LAB BLOOD A DD-ON Performing Organization Address [facility] Co de Phone Number [facility] [address] [place] [address], [facility] [address] [place] [address] * (ABNORMAL) AST (Aspartate Aminotransferase) (05/09/2024 9:38 AM CDT) Aspartate Aminotransferase (AST), S 62(H) 8 - 48 U/L 05/09/2024 10:51 AM CDT DTL Blood (Blood, Venous) 05/09/2024 9:38 AM CDT 05/09/2024 10:17 AM CDT Florentin Arceo, Ch.B. LAB BLOOD A DD-ON Performing Organization Address City/[facility]/ZIP Co de Phone Number [facility] [address] [facility] [address] [place] [address] * Alkaline Phosphatase (05/09/2024 9:38 AM CDT) Alkaline Phosphatase, S 81 40 - 129 U/L 05/09/2024 10:51 AM CDT DTL Blood (Blood, Venous) 05/09/2024 9:38 AM CDT 05/09/2024 10:17 AM CDT Florentin Arceo, ChGracielaB. LAB BLOOD A DD-ON Performing Organization Address City/[facility] Co de Phone Number [facility] [address] [place] [address] * (ABNORMAL) Hemoglobin A1c (05/09/2024 9:38 AM CDT) [facility] Hemoglobin A1c, B 6.2(H) 4.0 - 5.6 % 05/09/2024 11:08 AM CDT DTL Comment: Hemoglobin A1c values of 5.7-6.4 percent indicate an increased risk for developing diabetes mellitus. In diabetic patients, HbA1c goals should be discussed with healthcare provider. Blood (Blood, Venous) 05/09/2024 9:38 AM CDT 05/09/2024 10:03 AM CDT Florentin Arceo, Ch.B. LAB BLOOD A DD-ON [facility] [address] [place] [address] * Glucose, Fasting (05/09/2024 9:38 AM CDT) Pathologist [facility] [place] Glucose, P 97 70 - 100 mg/dL 05/09/2024 10:32 AM CDT DT Last Intake 1 hr 05/09/2024 10:17 AM CDT DTL Blood (Blood, Venous) 05/09/2024 9:38 AM CDT 05/09/2024 10:17 AM CDT Florentin Arceo Ch.B. LAB BLOOD N ON ADD-ON [facility] [address] [facility] [address] [place] [address] * Creatinine with Estimated GFR (05/09/2024 9:38 AM CDT) Creatinine 0.94 0.74 - 1.35 mg/dL 05/09/2024 10:51 AM CDT DTL Estimated GFR (eGFR) >90 >=60 mL/min/BSA 05/09/2024 10:51 AM CDT DTL Comment: Estimated GFR calculated using the 2020 CKD_EPI creatinine equation. Blood (Blood, Venous) 05/09/2024 9:38 AM CDT 05/09/2024 10:17 AM CDT Florentin Arceo Ch.B. LAB BLOOD A DD-ON Performing Organization Address [facility] Co de Phone Number [facility] [address] [facility] [address] [place] [address] * Bicarbonate (05/09/2024 9:38 AM CDT) Bicarbonate, S 27 22 - 29 mmol/L 05/09/2024 10:51 AM CDT DTL Blood (Blood, Venous) 05/09/2024 9:38 AM CDT 05/09/2024 10:17 AM CDT Florentin Arceo Ch.B. LAB BLOOD A DD-ON Performing Organization Address City/[facility]/ZIP Co de Phone Number [facility] [address] [place] [address], [facility] DTL [facility] [address] [place] [address] * Pulmonary Function Tests (05/09/2024 7:33 AM CDT) FVC 5.41 L 05/09/2024 11:28 AM CDT [facility] FEV1 4.17 L 05/09/2024 11:28 AM CDT [facility] FEV1/FVC 77.05 % 05/09/2024 11:28 AM CDT [facility] [id number]% 3.67 L/s 05/09/2024 11:28 AM CDT [facility] PEF PRE 8.43 L/s 05/09/2024 11:28 AM CDT [facility] PIF PRE 6.34 L/s 05/09/2024 11:28 AM CDT [facility] FEF 50 % FIF 50 PRE 79.10 % 05/09/2024 11:28 AM CDT [facility] FET PRE 11.04 sec 05/09/2024 11:28 AM CDT [facility] DLCO 34.36 ml/(min*mm Hg) 05/09/2024 11:28 AM CDT [facility] DLCOc 34.17 ml/(min*mm Hg) 05/09/2024 11:28 AM CDT [facility] HB 14.80 g(Hb)/dL 05/09/2024 11:28 AM CDT [facility] VA 7.04 L 05/09/2024 11:28 AM CDT [facility] 05/09/2024 7:33 AM CDT Impressions [facility] - 05/09/2024 11:28 AM CDT Normal study. Narrative Procedure Note Nikki Watkins M.D. - 05/09/2024 IMPRESSION: Normal study. Florentin Arceo, B. PFT ORDERAB LES [facility] NA * (ABNORMAL) Arterial Blood Gas - Rest (05/09/2024 6:35 AM CDT) Sample Site Right Radial Single Stick 05/09/2024 6:57 AM CDT DTL Patient Position Supine 05/09/20 6:57 AM CDT DTL Patient Activity Rest 05/09/20 6:57 AM CDT DTL pH Arterial 7.35 7.35 - 7.45 05/09/2024 6:57 AM CDT DTL pCO2 Arterial 57.1(H) 35.0 - 45.0 mm Hg 05/09/2024 6:57 AM CDT DTL pO2 Arterial 66.2(L) 80.0 - 100.0 mm Hg 05/09/2024 6:57 AM CDT DTL Total Hemoglobin 14.8 13.2 - 16.6 g/dL 05/09/2024 6:57 AM CDT DTL O2 Saturation 89.0(L) 94.0 - 98.0 % 05/09/2024 6:57 AM CDT DTL Carboxyhemoglobin 4.5(H) 0.0 - 1.9 % 05/09/2024 6:57 AM CDT DTL Methemoglobin 0.5 0.0 - 0.9 % 05/09/2024 6:57 AM CDT DTL Bicarbonate Conc 31.3(H) 22.0 - 26.0 mmol/L 05/09/2024 6:57 AM CDT DTL Base Excess 5.6(H) 0.0 - 2.0 mmol/L 05/09/2024 6:57 AM CDT DTL Fraga 0.00 05/09/2024 6:57 AM CDT DTL Activity Time 0.0 min 05/09/2024 6:57 AM CDT DTL Subcutaneous Lidocaine 0.0 mL 05/09/2024 6:57 AM CDT DTL O2 Devices NC 05/09/2024 6:57 AM CDT DTL O2 Flow 1.0 L/min 05/09/2024 6:57 AM CDT DTL Blood (Blood, Arterial) 05/09/2024 6:35 AM CDT 05/09/2024 6:49 AM CDT Mehreen Ochoa M.D. LAB BLOOD ADD -ON [facility] [address] [place] [address], [place] DTL [facility] [address] [place] [address] * Polysomnography (PSG): Split Night; Early PAP Initiation; CPAP, Bilevel S Mode, Bilevel S-T Mode (05/09/2024 3:18 AM CDT) Narrative ONBASE - 05/13/2024 8:43 AM CDT SUMMARY The baseline study showed 102 obstructive apneas or hypopneas per hour. ?? Mean oxyhemoglobin saturation was 80% with minimum 61% and saturations below 90% for 94% of the night. ??Mean transcutaneous CO2 during sleep was 61.8 mm Hg. ??The patient snored heavily 40 to 50% of the time. ??Sleep efficiency was high at 96%. ??No slow-wave or REM sleep was obtained. ??No periodic limb movements was seen. ??Of 102 arousals per hour, 90 2 per hour were breathing related. During the second part of the night CPAP was used with a [employer] small/medium interface. ??Pressure was increased to 15 cm water. ??The apnea-hypopnea index remained high at 80 per hour with mean oxyhemoglobin saturation 84% and mean transcutaneous CO2 during sleep 61.5 mm Hg. ??Sleep architecture changed showing 17.5% REM sleep. During the third part of the night bilevel positive airway pressure in the spontaneous mode was used. ??At an IPAP pressure of 23 and EPAP of 13, obstructive hypopneas persisted with mean oxyhemoglobin saturation of 81% and mean transcutaneous CO2 during sleep of 62.8 mm Hg. ??However, only 18 minutes sleep was obtained before oxygen at 1 liter/minute was added. ?? Thereafter the mode was changed to the spontaneous time mode in association with 1 liter/minute oxygen. ??Marked REM sleep rebound continued. ??At an optimal IPAP of 21 and EPAP of 14 cm water pressure with 1 liter/minute oxygen the apnea hypopnea index fell to below 10 per hour with values of 5 to 7 per hour. ??Mean oxyhemoglobin saturation improved to 91%. ??Mean transcutaneous CO2 fell to 54 mm Hg. CLINICAL INTERPRETATION The study shows the presence of very severe non positional obstructive sleep apnea in combination with hypoventilation, presumably due to obesity. ??CPAP was unsuccessful but bilevel positive airway pressure in the spontaneous mode at an IPAP of 21 and an EPAP of 14 cm water pressure in combination with 1 liter/minute oxygen resulted in control of obstructive sleep disordered breathing and improvement in oxyhemoglobin saturation and in transcutaneous CO2. Florentin Arceo, BGraciela SLEEP CENTE R ORDERABLES ONBASE NA from Last 3 Months
--- OUTSIDE RECORDS SUMMARY | 2024-05-23 00:59 | XMS_ITS | Encounter Summary ---
Author Organization [facility] Address [address] [place] [id number] Care Team Providers Care School Age Teacher Name Role Phone Unavailable Primary Care Provider Unavailabl e Encounter Details Date Type Department Care Team (Latest Contact Info) Description 05/09/2024 9:25 AM CDT - 05/09/2024 11:59 PM CDT Hospital Encounter Department of Laboratory Medicine and Pathology, [facility] in [place], [place] [address] [place] [phone] Florentin Leone M.B., Ch.B. [address] [place] [phone] Apnea Sleep Obstructive; Morbid Obesity Body Mass Index >= 35 with Comorbid Condition (HCC) Discharge Disposition: Home or Self Care Social History Tobacco Use Types Packs/Day Years Used Date Smoking Tobacco: Every Day Cigarettes Nutrition Answer Date Recorded Nutrition: EVOO Fat Source Unknown 01/14 Nutrition: Servings of Fruits/Vegetables per Day Not on file 01/14/2021 Dental Answer Date Recorded Dental: Regular Dentist Unknown 06/24/20 Sex and Gender Information Value Date Recorded Sex Assigned at Not on file Gender Identity Not on file Sexual Orientation Not on file documented as of this encounter Medications at Time of Discharge Medication Sig Dispensed Refills Start Date End Date aspirin-acetaminophen- caffeine (EXCEDRIN MIGRAINE) 250-250-65 mg per tablet Take 1 tablet by mouth every 6 (six) hours as needed for pain. ibuprofen (ADVIL,MOTRIN) 200 mg capsule Take 600 mg by mouth as needed for pain. Occaisionally as needed documented as of this encounter Plan of Treatment Not on file documented as of this encounter Procedures Procedure Name Priority Date/Time Associated Diagnosis Comments LIPID PANEL, S Routine 05/09/2024 9:38 AM CDT Apnea Sleep Obstructive THYROID FUNCTION CASCADE, S Routine 05/09/2024 9:38 AM CDT Apnea Sleep Obstructive ASPARTATE AMINOTRANSFERASE (AST), S/P Routine 05/09/2024 9:38 AM CDT Apnea Sleep Obstructive ALKALINE PHOSPHATASE, S/P Routine 05/09/2024 9:38 AM CDT Apnea Sleep Obstructive HEMOGLOBIN A1C, B Routine 05/09/2024 9:3 8 AM CDT Apnea Sleep Obstructive Morbid Obesity Body Mass Index >= 35 with Comorbid Condition (HCC) GLUCOSE, FASTING, S/P Routine 05/09/2024 9:38 AM CDT Apnea Sleep Obstructive CREATININE WITH EGFR, S/P Routine 05/09/2024 9:38 AM CDT Apnea Sleep Obstructive BICARBONATE, B/S/P Routine 05/09/2024 9: 38 AM CDT Apnea Sleep Obstructive documented in this encounter Results * Bicarbonate (05/09/2024 9:38 AM CDT) Bicarbonate, S 27 22 - 29 mmol/L 05/09/2024 10:51 AM CDT DTL Blood (Blood, Venous) 05/09/2024 9:38 AM CDT 05/09/2024 10:17 AM CDT Florentin Arceo, Ch.B. LAB BLOOD A DD-ON [facility] [address] [place] [address], [place] [facility] [address] [place] [address] * (ABNORMAL) Hemoglobin A1c (05/09/2024 9:38 AM CDT) Hemoglobin A1c, B 6.2(H) 4.0 - 5.6 % 05/09/2024 11:08 AM CDT DTL Comment: Hemoglobin A1c values of 5.7-6.4 percent indicate an increased risk for developing diabetes mellitus. In diabetic patients, HbA1c goals should be discussed with healthcare provider. Blood (Blood, Venous) 05/09/2024 9:38 AM CDT 05/09/2024 10:03 AM CDT Florentin Arceo, BGraciela LAB BLOOD A DD-ON [facility] [address] [place] [address], [facility] [address] [place] [address] * (ABNORMAL) Lipid Panel (05/09/2024 9:38 AM [...] LAB BLOOD A DD-ON Performing Organization Address [facility] Co de Phone Number [facility] [address] [place] [address], [facility] [place] [address] * Creatinine with Estimated GFR (05/09/2024 9:38 AM CDT) Creatinine 0.94 0.74 - 1.35 mg/dL 05/09/2024 10:51 AM CDT DTL Estimated GFR (eGFR) >90 >=60 mL/min/BSA 05/09/2024 10:51 AM CDT DTL Comment: Estimated GFR calculated using the 2020 CKD_EPI creatinine equation. Blood (Blood, Venous) 05/09/2024 9:38 AM CDT 05/09/2024 10:17 AM CDT Florentin Arceo, Ch.B. LAB BLOOD A DD-ON Performing Organization Address [facility] Co de Phone Number [facility] [address] [place] [address], [place] [address] * Alkaline Phosphatase (05/09/2024 9:38 AM CDT) Alkaline Phosphatase, S 81 40 - 129 U/L 05/09/2024 10:51 AM CDT DTL Blood (Blood, Venous) 05/09/2024 9:38 AM CDT 05/09/2024 10:17 AM CDT Florentin Arceo, ChGracielaB. LAB BLOOD A DD-ON Performing Organization Address City/[facility]/ZIP Co de Phone Number [facility] [address] [place] [address] * (ABNORMAL) AST (Aspartate Aminotransferase) (05/09/2024 9:38 AM CDT) Aspartate Aminotransferase (AST), S 62(H) 8 - 48 U/L 05/09/2024 10:51 AM CDT DTL Blood (Blood, Venous) 05/09/2024 9:38 AM CDT 05/09/2024 10:17 AM CDT Florentin Arceo, Ch.B. LAB BLOOD A DD-ON Performing Organization Address [facility] Co de Phone Number [facility] [address] [place] [address] * Glucose, Fasting (05/09/2024 9:38 AM CDT) Glucose, P 97 70 - 100 mg/dL 05/09/2024 10:32 AM CDT DTL Last Intake 1 hr 05/09/2024 10:17 AM CDT DTL Blood (Blood, Venous) 05/09/2024 9:38 AM CDT 05/09/2024 10:17 AM CDT Florentin Arceo, Ch.B. LAB BLOOD N ON ADD-ON Performing Organization Address City/[facility]/ZIP Co de Phone Number [facility] [address] [place] [address] * Thyroid Function [place] (05/09/2024 9:38 AM CDT) TSH, Sensitive 1.3 0.3 - 4.2 mIU/L 05/09/2024 10:51 AM CDT DTL Blood (Blood, Venous) 05/09/2024 9:38 AM CDT 05/09/2024 10:17 AM CDT Florentin Arceo, Ch.B. LAB BLOOD A DD-ON [address] [address], [facility] DTL [address] [address] documented in this encounter Visit Diagnoses Diagnosis Apnea Sleep Obstructive Morbid Obesity Body Mass Index >= 35 with Comorbid Condition (HCC) documented in this encounter
--- OUTSIDE RECORDS SUMMARY | 2024-05-23 00:59 | XMS_ITS | Encounter Summary ---
Author Organization [facility] Address [address] [place] [address] Care Team Providers Care Piano Sounding Board Matcher Name Role Phone Unavailable Primary Care Provider Unavailabl e Reason for Referral * Outpatient (Routine) - Authorized Specialty Diagnoses / Procedures Referred By Contac t Referred To Contact Diagnoses Apnea Sleep Obstructive Procedures [facility] Overnight Pulse Oximetry Florentin Leone M.B., Ch.B. [address] [place] [phone] [facility] Referral ID Status Reason Start Date Expiration Date V isits Requested Visits Authorized [id number] Authorized 05/13/2024 05/13/2025 1 1 * Outpatient (Routine) - Authorized Specialty Diagnoses / Procedures Referred By Contac t Referred To Contact Sleep Florentin Sosa M.B., Ch.B. 200 [place] [address] [facility] Referral ID Status Reason Start Date Expiration Date V isits Requested Visits Authorized [id number] Authorized 05/13/2024 11/12/2025 1 1 Scheduling Instructions General continuity clinic in about 6 weeks Reason for Visit * Outpatient (Routine) - Closed Specialty Diagnoses / Procedures Referred By Contac t Referred To Contact Sleep Florentin Sosa M.B., Ch.B. [address] [place] [phone] [facility] Referral ID Status Reason Start Date Expiration Date Visits Re quested Visits Authorized [id number] Closed 03/23/2024 09/22/2025 1 1 Encounter Details Date Type Department Care Team (Late st Contact Info) Description 05/13/2024 9:00 AM CDT Telemedicine [facility] in [place], [place] [address] [place] [address] Florentin Leone M.B., Ch.B. [address] [place] [phone] Apnea Sleep Obstructive (Primary Dx); Acute Respiratory Failure With Hypercapnia (HCC) Social History Tobacco Use Types Packs/Day Years [...] on file documented as of this encounter Progress Notes * Florentin Leone M.B., Ch.B. - 05/13/2024 9:00 AM CDT SUBJECTIVE CHIEF COMPLAINT/REASON FOR VISIT I met with the patient in his home to discuss the results of polysomnography and other tests using real-time video audio technology. I was in my office at [facility]. ASSESSMENT / PLAN #1 Obstructive sleep apnea and obesity hypoventilation syndrome I discussed the results of polysomnography. For full details, please see separate report. In summary, the patient has very severe obstructive sleep apnea with an AHI of 102 per hour. CPAP was ineffective in controlling this but bilevel positive airway pressure in the spontaneous mode at apressure of IPAP 21 and EPAP 14 eventually dropped the apnea-hypopnea index to between 5 and 7 per hour. Baseline mean oxyhemoglobin saturation was 80% with this eventually controlled with bilevel positive airway pressure at the pressures indicated above to a mean of 91% with the addition of 1 liter/minute oxygen. Transcutaneous CO2 at baseline was 62 and this fell to 54 with treatment. At 1 liter/minute oxygen, arterial blood gases showed a PaCO2 of 57, pH 7.35 and bicarbonate 31.3, suggesting fully compensated respiratory acidosis. Pulmonary function tests were normal, suggesting that the respiratory failure was due to obesity and not to COPD. HbA1c was raised at 6.2%. AST was slightly raised at 62 but alkaline phosphatase normal. Renal function was normal. Cholesterol was 233, HDL 32, LDL 141 and triglycerides 327. I prescribed a bilevel positive airway pressure system at an IPAP of 21 and an EPAP of 14 with heated humidification and an F 30 hybrid fullface mask or alternative interface of patient's choice. Thepatient tolerated the system well during the night but had considerable pain over his nose and facein the morning. He agreed, however, to make every effort to try tolerate the system with time. I discussed care of the machine. I also prescribed 1 liter/minute oxygen to be applied through the system at night. The indication for oxygen is hypoventilation syndrome following adequate control of obstructive sleep apnea with a residual AHI less than 10. We will see him back in about 1 to 2 months with preceding overnight oximetry. He has on a wait list to get into nutrition clinic and this is unlikely to happen before the [facility]. In the meantime, I am happy to hear that his primary care physician has prescribed semaglutide and he is already lost 7 lb weight. I will write to him and are ask if he will kindly address the patient's hyperlipidemia. Total time: 35 minutes [id number] and non [id number] documented in this encounter Plan of Treatment Scheduled Orders Name Type Priority Associated Diagnoses Orde r Schedule [facility] Overnight Pulse Oximetry [facility] Routine Apnea Sleep Obstructive Expected: 06/26/2024, Expires: 08/13/2025 Scheduled Referrals Name Type Priority Associated Diagnoses Orde r Schedule Sleep Medicine office visit (clinic) Outpatient Referral Routine Expected: 06/27/2024, Expires: 08/13/2025 documented as of this encounter Visit Diagnoses Diagnosis Apnea Sleep Obstructive- Primary Acute Respiratory Failure With Hypercapnia (HCC) documented in this encounter
--- OUTSIDE RECORDS SUMMARY | 2024-05-23 00:59 | XMS_ITS | Encounter Summary ---
Author Organization [facility] Address [address] [place] [address] Care Team Providers Care Spring Former Hand Name Role Phone Unavailable Primary Care Provider Unavailabl e Encounter Details Date Type Department Care Team (Latest Contact Info) Description 05/09/2024 6:21 AM CDT - 05/12/2024 11:59 PM CDT Hospital Encounter [facility] in [place], [place] [address] [place] [phone] Mehreen Ochoa M.D. [address] [place] [address] Apnea Sleep Obstructive; Hypoxia Discharge Disposition: Home or Self Care Social [...] Procedure Name Priority Date/Time Associated Diagnosis Comments ARTERIAL BLOOD GAS - PULMONARY CLINIC Routine 05/09/2024 6:35 AM CDT Apnea Sleep Obstructive Hypoxia documented in this encounter Results * (ABNORMAL) Arterial Blood Gas - Rest [...] Mehreen Ochoa M.D. LAB BLOOD ADD -ON [facility] [address] [place] [address], [facility] DTL [facility] [address] [place] [address] documented in this encounter Visit Diagnoses Diagnosis Apnea Sleep Obstructive Hypoxia documented in this encounter
--- OUTSIDE RECORDS SUMMARY | 2024-05-23 00:59 | XMS_ITS | Encounter Summary ---
Author Organization [facility] Address [address] [place] [address] Care Team Providers Care Needle Loom Weaver Name Role Phone Unavailable Primary Care Provider Unavailabl e Reason for Referral * Outpatient (Routine) - Closed Specialty Diagnoses / Procedures Referred By Parker trejo Referred To Contact Diagnoses Apnea Sleep Obstructive Procedures Polysomnography (PSG): Split Night; Early PAP Initiation; CPAP, Bilevel S Mode, Bilevel S-T Mode Florentin Leone M.B., Ch.B. 200 [place] [address] [facility] Referral ID Status Reason Start Date Expiration Date Visits Re quested Visits Authorized [id number] Closed 03/23/2024 03/23/2025 1 1 Reason for Visit * Outpatient (Routine) - Closed Specialty Diagnoses / Procedures Referred By Parker trejo Referred To Contact Diagnoses Apnea Sleep Obstructive Procedures Polysomnography (PSG): Split Night; Early PAP Initiation; CPAP, Bilevel S Mode, Bilevel S-T Mode Florentin Leone M.B., Ch.B. 200 [place] [address] [facility] Referral ID Status Reason Start Date Expiration Date Visits Re quested Visits Authorized [id number] Closed 03/23/2024 03/23/2025 1 1 Encounter Details Date Type Department Care Team (Latest Contact Info) Description 05/08/2024 6:11 PM CDT - 05/11/2024 11:59 PM CDT Hospital Encounter [facility] in [place], [place] [address] [place] [address] Florentin Leone M.B., Ch.B. [address] [place] [address] Apnea Sleep Obstructive Discharge Disposition: Home or Self Care Social [...] Procedure Name Priority Date/Time Associated Diagnosis Comments POLYSOMNOGRAPHY Routine 05/09/2024 3:18 AM CDT Apnea Sleep Obstructive documented in this encounter Results * Polysomnography (PSG): Split Night; Early PAP [...] the night CPAP was used with a [employer] small/medium interface. ??Pressure was increased to 15 [...] saturation and in transcutaneous CO2. Florentin Arceo, Devika [facility] R ORDERABLES ONBASE NA documented in this encounter Visit Diagnoses Diagnosis Apnea Sleep Obstructive documented in this encounter
--- OUTSIDE RECORDS SUMMARY | 2024-05-23 00:59 | XMS_ITS | Encounter Summary ---
Author Organization [facility] Address [address] [place] [address] Care Team Providers Care Forestry Adviser Name Role Phone Unavailable Primary Care Provider Unavailabl e Encounter Details Date Type Department Care Team (Late st Contact Info) Description 05/05/2024 Orders Only [facility] in [place], [place] [address] [place] [address] Mehreen Ochoa M.D. [address] [place] [address] Apnea Sleep Obstructive (Primary Dx); Hypoxia Social History Tobacco Use Types Packs/Day Years [...] on file documented as of this encounter Plan of Treatment Not on file documented as of this encounter Results * (ABNORMAL) Arterial Blood Gas - Rest (05/09/2024 6:35 AM CDT) Sample Site Right Radial Single Stick 05/09/2024 6:57 AM CDT DTL Patient Position Supine 05/09/20 6:57 AM CDT DTL Patient Activity Rest 05/09/20 24 6:57 AM CDT DTL pH Arterial 7.35 [...] Mehreen Ochoa M.D. LAB BLOOD ADD -ON [facility] [address] [place] [address], [facility] [address] [place] [address] documented in this encounter Visit Diagnoses Diagnosis Apnea Sleep Obstructive- Primary Hypoxia documented in this encounter
--- OUTSIDE RECORDS SUMMARY | 2024-05-23 00:59 | XMS_ITS | Clinical Summary ---
Author Organization [facility] Address [address] [place] [address] Care Team Providers Care Medical Assistant Ob Gyn Name Role Phone Unavailable Primary Care Provider Unavailabl e Source Comments Patient records contain information from all sites at [facility]. For routine questions regarding patient records, call [phone] during business hours, M-F 8:00 AM - 5:00 PM Central Time. Record requests for emergency care only can be directed to [phone] at any time.[facility] Allergies Active Allergy Reactions Criticality Noted Date [...] ex >= 35 with Comorbid Condition 03/23/2024 Encounters Date Type Department Care Team Description 05/13/2024 9:00 AM CDT Telemedicine Center for [facility] in [place], [place] [address] [place] [phone] Florentin Leone M.B., Ch.B. Apnea Sleep Obstructive (Primary Dx); Acute Respiratory Failure With Hypercapnia (HCC) 05/09/2024 9:25 AM CDT - 05/09/2024 11:59 PM CDT Hospital Encounter Department of Laboratory Medicine and Pathology, [facility] in [place], [place] [address] [place] [phone] Florentin Leone M.B., Ch.B. Apnea Sleep Obstructive; Morbid Obesity Body Mass Index >= 35 with Comorbid Condition (HCC) Discharge Disposition: Home or Self Care 05/09/2024 6:21 AM CDT - 05/12/2024 11:59 PM CDT Hospital Encounter [facility] in [place], [place] [address] [place] [phone] Mehreen Drake M.D. Apnea Sleep Obstructive; Hypoxia Discharge Disposition: Home or Self Care 05/08/2024 6:11 PM CDT - 05/11/2024 11:59 PM CDT Hospital Encounter [facility] in [place], [place] [address] [place] [phone] Florentin Leone M.B., Ch.B. Apnea Sleep Obstructive Discharge Disposition: Home or Self Care 05/05/2024 [facility] Only [facility] in [place], [place] [address] [place] [phone] Mehreen Drake M.D. Apnea Sleep Obstructive (Primary Dx); Hypoxia 03/23/2024 10:00 AM CDT Comprehensive Visit [facility] in [place], [place] [address] [place] [phone] Florentin Leone M.B., Ch.B. Morbid Obesity Body Mass Index >= 35 with Comorbid Condition (HCC) (Primary Dx); Apnea Sleep Obstructive 03/22/2024 12:30 PM CDT Clinical Communication Virtual Review in [place], [place] 200 [place] [address] Pre-visit Intake from Last 3 Months Social History Tobacco Use Types Packs/Day Years [...] 03/23/2024 10:08 AM CDT Plan of Treatment Health Maintenance Due Date Last Done Comments HIV Screening 1985 Hepatitis C Screening 1985 Tobacco Cessation counseling 1985 Pneumococcal vaccine (0-64 years) (1 of 2 - PCV) 1991 Hepatitis B Vaccines (1 of 3 - 19+ 3-dose series) 01/30/2004 COVID-19 Vaccine (1 - 2022- season) 2023 Depression Screening (Annual PHQ-2) 11/09/2023 Influenza Vaccine (#1) 2024 08/13/2009, 2008 DTaP,Tdap,and Td Vaccines (5 - Td or Tdap) 04/22/2026 04/22/2016, 09/20/1986, 09/20/1986, Additional history exists Lipid (Cholesterol) Screening 05/09/2029 05/09/2024 HPV Vaccines Aged Out No longer eligi ble based on patient's age to complete this topic Procedures Procedure Name Priority Date/Time Associated Diagnosis [...] (ABNORMAL) Lipid Panel (05/09/2024 9:38 AM CDT) Pathologist [facility] Triglycerides 327(H) mg/dL 05/09/2024 10:51 AM CDT [...] CDT 05/09/2024 10:17 AM CDT Florentin Arceo, B. LAB BLOOD A DD-ON Performing Organization Address [facility] [place] [address], [facility] [place] [address] * Thyroid Function [place] (05/09/2024 9:38 AM CDT) TSH, Sensitive 1.3 0.3 - 4.2 mIU/L 05/09/2024 10:51 AM CDT DTL Blood (Blood, Venous) 05/09/2024 9:38 AM CDT 05/09/2024 10:17 AM CDT Florentin Arceo, ChGracielaB. LAB BLOOD A DD-ON [facility] 200 [place], [place] [phone] [place] [address] 200 [place] [address] * (ABNORMAL) AST (Aspartate Aminotransferase) (05/09/2024 9:38 AM CDT) Aspartate Aminotransferase (AST), S 62(H) 8 - 48 U/L 05/09/2024 10:51 AM CDT DT Blood (Blood, Venous) 05/09/2024 9:38 AM CDT 05/09/2024 10:17 AM CDT Florentin Arceo, ChGracielaB. LAB BLOOD A DD-ON Performing Organization Address City/[facility] Co de Phone Number [facility] [address] [place] [address] * Alkaline Phosphatase (05/09/2024 9:38 AM CDT) Alkaline Phosphatase, S 81 40 - 129 U/L 05/09/2024 10:51 AM CDT DT Blood (Blood, Venous) 05/09/2024 9:38 AM CDT 05/09/2024 10:17 AM CDT Florentin Arceo, Ch.B. LAB BLOOD A DD-ON Performing Organization Address City/[facility]/ZIP Co de Phone Number [facility] 200 [place], [place] [address] [place] [address] 200 [place] [address] * (ABNORMAL) Hemoglobin A1c (05/09/2024 9:38 AM CDT) Hemoglobin A1c, B 6.2(H) 4.0 - 5.6 % 05/09/2024 11:08 AM CDT DT Comment: Hemoglobin A1c values of 5.7-6.4 percent indicate an increased risk for developing diabetes mellitus. In diabetic patients, HbA1c goals should be discussed with healthcare provider. Blood (Blood, Venous) 05/09/2024 9:38 AM CDT 05/09/2024 10:03 AM CDT Florentin Arceo, B. LAB BLOOD A DD-ON Performing Organization Address [facility] [place] [address] * Glucose, Fasting (05/09/2024 9:38 AM CDT) Glucose, P 97 70 - 100 mg/dL 05/09/2024 10:32 AM CDT DTL Last Intake 1 hr 05/09/2024 10:17 AM CDT DTL Blood (Blood, Venous) 05/09/2024 9:38 AM CDT 05/09/2024 10:17 AM CDT Florentin Arceo, ChGracielaB. LAB BLOOD N ON ADD-ON Performing Organization Address [facility] [place] [address] * Creatinine with Estimated GFR (05/09/2024 9:38 AM CDT) Creatinine 0.94 0.74 - 1.35 mg/dL 05/09/2024 10:51 AM CDT DTL Estimated GFR (eGFR) >90 >=60 mL/min/BSA 05/09/2024 10:51 AM CDT DTL Comment: Estimated GFR calculated using the 2020 CKD_EPI creatinine equation. Blood (Blood, Venous) 05/09/2024 9:38 AM CDT 05/09/2024 10:17 AM CDT Florentin Arceo, B. LAB BLOOD A DD-ON Performing Organization Address City/[facility]/ZIP Co de Phone Number [facility] 200 [place] [address] * Bicarbonate (05/09/2024 9:38 AM CDT) Bicarbonate, S 27 22 - 29 mmol/L 05/09/2024 10:51 AM CDT DTL Blood (Blood, Venous) 05/09/2024 9:38 AM CDT 05/09/2024 10:17 AM CDT Florentin Arceo, Ch.B. LAB BLOOD A DD-ON Performing Organization Address [facility] Co de Phone Number [facility] [address] [place] [address] * Pulmonary Function Tests (05/09/2024 7:33 AM CDT) FVC 5.41 L 05/09/2024 11:28 AM CDT [facility] FEV1 4.17 L 05/09/2024 11:28 AM CDT [facility] FEV1/FVC 77.05 % 05/09/2024 11:28 AM CDT [facility] YYI86-80% 3.67 L/s 05/09/2024 11:28 AM CDT [facility] PEF PRE 8.43 L/s 05/09/2024 11:28 AM CDT [facility] PIF PRE 6.34 L/s 05/09/2024 11:28 AM CDT [facility] FEF 50 % FIF 50 PRE 79.10 % 05/09/2024 11:28 AM CDT [facility] FET PRE 11.04 sec 05/09/2024 11:28 AM CDT [facility] DLCO 34.36 ml/(min*mm Hg) 05/09/2024 11:28 AM CDT [facility] DLCOc 34.17 ml/(min*mm Hg) 05/09/2024 11:28 AM CDT [facility] HB 14.80 g(Hb)/dL 05/09/2024 11:28 AM CDT [facility] VA 7.04 L 05/09/2024 11:28 AM CDT [facility] 05/09/2024 7:33 AM CDT Impressions [facility] - 05/09/2024 11:28 AM CDT Normal study. Narrative Procedure Note Nikki Watkins M.D. - 05/09/2024 IMPRESSION: Normal study. Florentin Arceo, B. PFT ORDERAB LES [facility] NA * (ABNORMAL) Arterial Blood Gas - Rest (05/09/2024 6:35 AM CDT) Sample Site Right Radial Single Stick 05/09/2024 6:57 AM CDT DTL Patient Position Supine 05/09/20 24 6:57 AM CDT DTL Patient Activity Rest [...] Mehreen Ochoa M.D. LAB BLOOD ADD -ON [facility] 200 [place] [address], [facility] [address] [place] [address] * Polysomnography (PSG): Split Night; Early PAP [...] the night CPAP was used with a [employer] small/medium interface. ??Pressure was increased to 15 [...] saturation and in transcutaneous CO2. Florentin Arceo, B. SLEEP CENTE R ORDERABLES ONBASE NA from Last 3 Months
--- OUTSIDE RECORDS SUMMARY | 2024-05-23 00:59 | XMS_ITS ---
Author Organization [facility] Address [address] [place] [address] Care Team Providers Care Car Examiner Name Role Phone Unavailable Unavailable Unavailable Surgery Details Not on file Complications Check Surgery Details section. Procedure Estimated Blood Loss Check Surgery Details section. Procedure Findings Check Surgery Details section. Procedure Specimens Taken Check Surgery Details section.
--- OUTSIDE RECORDS SUMMARY | 2024-05-23 01:00 | XMS_ITS | Encounter Summary ---
Author Organization [facility] Address [address] [place] [address] Care Team Providers Care Spinning Frame Tender Name Role Phone Unavailable Primary Care Provider Unavailabl e Reason for Visit * Reason Onset Date Comments Pre-visit Intake 03/22/2024 Encounter Details Date Type Department Care Team (Latest Contact Info) Description 03/22/2024 12:30 PM CDT Clinical Communication Virtual Review in [place], [place] 200 [place] [address] Pre-visit Intake Social History Tobacco Use Types Packs/Day Years [...] on file documented as of this encounter Visit Diagnoses Not on filedocumented in this encounter
--- OUTSIDE RECORDS SUMMARY | 2024-05-23 01:00 | XMS_ITS | Encounter Summary ---
Author Organization [facility] Address [address] [place] [address] Care Team Providers Care Online Services Manager Name Role Phone Unavailable Primary Care Provider Unavailabl e Reason for Referral * Outpatient (Routine) - Closed Specialty Diagnoses / Procedures Referred By Parker trejo Referred To Contact Sleep Medicine Diagnoses Apnea Sleep Obstructive You Ruiz M.D. [address] [place] [address] [facility] Referral ID Status Reason Start Date Expiration Date Visits Re quested Visits Authorized [id number] Closed 02/18/2024 08/19/2025 1 1 Encounter Details Date Type Department Care Team (Late st Contact Info) Description 02/18/2024 [facility] [address] [place] [address] You Ruiz M.D. [address] [place] [phone] Apnea Sleep Obstructive (Primary Dx) Social History Tobacco Use Types Packs/Day Years Used Date Smoking Tobacco: Never Assessed Nutrition Answer Date Recorded Nutrition: EVOO Fat Source Unknown 01/14 Nutrition: Servings of Fruits/Vegetables per Day Not on file 01/14/2021 Dental Answer Date Recorded Dental: Regular Dentist Unknown 06/24/20 Sex and Gender Information Value Date Recorded Sex Assigned at Not on file Gender Identity Not on file Sexual Orientation Not on file documented as of this encounter Plan of Treatment Scheduled Referrals Name Type Priority Associated Diagnoses Order Schedule Otolaryngology Referral Outpatient Referral Routine Apnea Sleep Obstructive Expected: 02/18/2024 (Approximate), Expires: 05/19/2025 documented as of this encounter Visit Diagnoses Diagnosis Apnea Sleep Obstructive- Primary documented in this encounter
--- OUTSIDE RECORDS SUMMARY | 2024-05-23 01:00 | XMS_ITS | Encounter Summary ---
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 [address] [place] [phone] [facility] Referral ID Status Reason Start Date Expiration Date Visits Re quested Visits Authorized [id number] Closed 03/23/2024 09/22/2025 1 1 * Outpatient (Routine) - Closed Specialty Diagnoses / Procedures Referred By Contac t Referred To Contact Diagnoses Apnea Sleep Obstructive Procedures Polysomnography (PSG): Split Night; Early PAP Initiation; CPAP, Bilevel S Mode, Bilevel S-T Mode Florentin Leone M.B., Ch.B. 200 [place] [phone] [facility] Referral ID Status Reason Start Date Expiration Date Visits Re quested Visits Authorized [id number] Closed 03/23/2024 03/23/2025 1 1 * Outpatient (Routine) - Authorized Specialty Diagnoses / Procedures Referred By Contac t Referred To Contact Endocrinology Diagnoses Apnea Sleep Obstructive Morbid Obesity Body Mass Index >= 35 with Comorbid Condition (HCC) Florentin Leone M.B., Ch.B. [address] [place] [phone] [facility] Referral ID Status Reason Start Date Expiration Date V isits Requested Visits Authorized [id number] Authorized 03/23/2024 09/22/2025 1 1 * Outpatient (Routine) - Authorized Specialty Diagnoses / Procedures Referred By Parker trejo Referred To Contact Nutrition Diagnoses Apnea Sleep Obstructive Morbid Obesity Body Mass Index >= 35 with Comorbid Condition (HCC) Florentin Leone M.B., Ch.B. [address] [place] [phone] [facility] Referral ID Status Reason Start Date Expiration Date V isits Requested Visits Authorized [id number] Authorized 03/23/2024 09/22/2025 1 1 Reason for Visit * Outpatient (Routine) - Closed Specialty Diagnoses / Procedures Referred By Parker trejo Referred To Contact Sleep Medicine Diagnoses Apnea Sleep Obstructive You Ruiz M.D. [address] [place] [phone] [facility] Referral ID Status Reason Start Date Expiration Date Visits Re quested Visits Authorized [id number] Closed 02/18/2024 08/19/2025 1 1 Encounter Details Date Type Department Care Team (Latest Contact Info) Description 03/23/2024 10:00 AM CDT Comprehensive Visit [facility] in [place], [place] [address] [place] [phone] Florentin Leone M.B., Ch.B. [address] [place] [phone] Morbid Obesity Body Mass Index >= 35 with Comorbid Condition (HCC) (Primary Dx); Apnea Sleep Obstructive Social History Tobacco Use Types Packs/Day Years [...] on file documented as of this encounter Last Filed Vital Signs Vital Sign Reading [...] Mass Index 49.07 03/23/2024 10:08 AM CDT documented in this encounter Consult Notes * Florentin Leone M.B., Ch.B. - 03/23/2024 10:00 AM CDT SUBJECTIVE REFERRING PROVIDER Leonor Shaw* REASON FOR CONSULT Obstructive sleep apnea HISTORY OF PRESENT ILLNESS #1 Obstructive sleep apnea I took his from the patient and examined him. I obtained collateral history from his fiancee and reviewed the results of previous sleep studies. The patient snores extremely loudly in all positions but prefers to sleep on his side on 2 pillows.He and his fiancee are both aware of snort arousals which are sometimes severe enough that he starts coughing and may vomit. His fiancee has noticed apneas. He goes to bed somewhere between 9:30 p.m. and 2:30 a.m. falling asleep most often within 15 to 20 minutes but sometimes lying awake longer if he has been dozing in the evening. He wakes 3 to 4 timesduring the night for snort arousals auto use the bathroom and finally wakes between 7 and 7:30 a.m.feeling tired with a dry mouth and occasional headache. He is profoundly sleepy during the day with an [place]one Sleepiness scale of 17. Can fall asleep watching TV, reading, talking to a single person, eating or at a red traffic light. The cause drifted off the road and across the center line after driving 30 minutes. He has not had a motor vehicle accident. He does not take planned naps. He has sleep walked since he was a child. More than 10 years ago he walked outside the house but has not done that since. Thirteen years ago he almost fell down the basement steps while sleepwalking but has not done any potentially injurious behaviors since then. He generally will walk into anotherroom and his fiancee will find him asleep at the kitchen table or in the bathroom. He does talk andsometimes yell in his sleep in his fiancee has noticed some hand movements when he dozes in a chairbut he does not seem to her full dream enactment behavior such as punching, flailing or kicking. He does not have hypnagogic hallucinations, sleep paralysis, restless legs or cataplexy. His weighthas increased over 20 years. He is short of breath if he over exerts. A home sleep apnea test performed last year is reported as having an AHI of 31.6. A titration studywas performed on 04/20/2023. Apparently CPAP failed but bilevel positive airway pressure at an IPAPof 17 and an EPAP of 13 resulted in some control with residual AHI of 11.7 although it was noted that REM sleep was not obtained in the supine position. He tried bilevel positive airway pressure for few nights but could never tolerated for more than an hour because of the high expiratory pressure. He has had no other treatment. The following portions of the patient's history were reviewed and updated as appropriate: allergies, current medications, family history, medical history, social history, surgical history. Social History: Fiancee with 3 children. [employer]. Smokes half a pack a day, 12 pack years. Minimal alcohol. 2 to 3 caffeinated beverages a day. Cannabis once or twice a week. Minimal exercise. Past Medical History: People gout. Lymphedema. High blood pressure. Hyperlipidemia. Allergic rhinitis. Migraine. Lower GI hemorrhage. Erectile dysfunction. Right rotator cuff problems. Family History: Father snores, no known sleep apnea. No sleepwalking. REVIEW OF SYSTEMS Reviewed encounter review of systems and pertinent responses are noted in the history. OBJECTIVE PHYSICAL EXAM Blood Pressure: 135/88 (03/23/2024 10:08 AM) Pulse Rate: 96 (03/23/2024 10:08 AM) BMI (Calculated): 49.1 kg/m?? (03/23/2024 10:08 AM) Height: 190.2 cm (03/23/2024 10:08 AM) Weight: (!) 177 kg (03/23/2024 10:08 AM) Constitutional: General appearance obese Eyes: Conjunctivae and lids normal. Pupils and irises normal. Bilateral +1 ptosis Ears, Nose Mouth and Throat: Oropharynx: Selby grade 4 with swollen uvula, erythematous soft palate and narrow AP and lateral diameters of oropharynx External inspection of ears and nose normal. Nasal mucosa, septum and turbinates normal. Lips, teeth, and gums: Absent incisors and canines upper jaw. Lymph: No abnormal lymphadenopathy in neck or supraclavicular region Neck: Normal. Neck circumference 50 cm. Thyroid normal. Heart: Palpation of heart normal. Auscultation of heart normal. 3+ severe bilevel ankle edema with venous stasis discoloration. No carotid artery bruits. JVP 0 cm Lungs: Respiratory effort normal. Percussion and palpation normal. Auscultation of lungs normal. Mental: Judgement and insight normal. Orientation normal. Memory normal. Mood normal. ASSESSMENT / PLAN #1 Obstructive sleep apnea and possible obesity hypoventilation He has severe obstructive sleep apnea and probably obesity hypoventilation syndrome. He is profoundly sleepy. I have organized blood work including bicarbonate, lipid panel, HbA1c, glucose, metabolic screen and thyroid function. I have referred him to in the nutrition Clinic. I have organised pulmonary function tests. We will proceed to nocturnal polysomnography with a short baseline study followed by CPAP and bilevel positive airway pressure in the S or ST mode as indicated with or without additional oxygen. Transcutaneous CO2 monitoring will be done. If oxygen is used, blood gases will be checked in the morning. He will be seen back thereafter. I briefly outlined possible surgical options if positive airway pressure is unsuccessful but these would need to be discussed with him in more detail later if needed. I told him clearly that he should not be driving at all until his problem is further elucidated and he noted understanding of this. documented in this encounter Plan of Treatment Scheduled Referrals Name Type Priority Associated Diagnoses Order Schedule Nutrition - Weight management medical nutrition therapy overweight/obesity consult (clinic) Outpatient Referral Routine Apnea Sleep Obstructive Morbid Obesity Body Mass Index >= 35 with Comorbid Condition (HCC) Expected: 03/23/2024, Expires: 06/23/2025 Endocrinology - Weight management consult (clinic) Outpatient Referral Routine Apnea Sleep Obstructive Morbid Obesity Body Mass Index >= 35 with Comorbid Condition (HCC) Expected: 03/23/2024, Expires: 06/23/2025 Sleep Medicine office visit (clinic) Outpatient Referral Routine Expected: 03/23/2024, Expires: 06/23/2025 documented as of this encounter Results * Bicarbonate (05/09/2024 9:38 AM CDT) Bicarbonate, S 27 22 - 29 mmol/L 05/09/2024 10:51 AM CDT DTL Blood (Blood, Venous) 05/09/2024 9:38 AM CDT 05/09/2024 10:17 AM CDT Florentin Arceo, BGraciela [place] [address], [facility] [place] [address] * (ABNORMAL) Hemoglobin A1c (05/09/2024 9:38 AM [...] Florentin Arceo, B. LAB BLOOD A DD-ON [facility] [address] [place] [address], [facility] [address] [place] [address] * (ABNORMAL) Lipid Panel (05/09/2024 9:38 AM [...] Florentin Arceo, B. LAB BLOOD A DD-ON [facility] 200 [place] [address], [facility] 200 [place] [address] * Creatinine with Estimated GFR (05/09/2024 9:38 AM CDT) Creatinine 0.94 0.74 - 1.35 mg/dL 05/09/2024 10:51 AM CDT DTL Estimated GFR (eGFR) >90 >=60 mL/min/BSA 05/09/2024 10:51 AM CDT DTL Comment: Estimated GFR calculated using the 2020 CKD_EPI creatinine equation. Blood (Blood, Venous) 05/09/2024 9:38 AM CDT 05/09/2024 10:17 AM CDT Florentin Arceo, Ch.B. LAB BLOOD A DD-ON Performing Organization Address City/[facility] Co de Phone Number [facility] [address] [place] [address], [facility] 200 [place] [address] * Alkaline Phosphatase (05/09/2024 9:38 AM CDT) Alkaline Phosphatase, S 81 40 - 129 U/L 05/09/2024 10:51 AM CDT DTL Blood (Blood, Venous) 05/09/2024 9:38 AM CDT 05/09/2024 10:17 AM CDT Florentin Arceo, B. LAB BLOOD A DD-ON Performing Organization Address City/[facility]/ZIP Co de Phone Number [facility] [address] [place] [address], [facility] [address] [place] [address] * (ABNORMAL) AST (Aspartate Aminotransferase) (05/09/2024 9:38 AM CDT) Aspartate Aminotransferase (AST), S 62(H) 8 - 48 U/L 05/09/2024 10:51 AM CDT DTL Blood (Blood, Venous) 05/09/2024 9:38 AM CDT 05/09/2024 10:17 AM CDT Florentin Arceo, B. LAB BLOOD A DD-ON Performing Organization Address [facility] de Phone Number [facility] [address] [place] [address] * Glucose, Fasting (05/09/2024 9:38 AM CDT) Glucose, P 97 70 - 100 mg/dL 05/09/2024 10:32 AM CDT DTL Last Intake 1 hr 05/09/2024 10:17 AM CDT DTL Blood (Blood, Venous) 05/09/2024 9:38 AM CDT 05/09/2024 10:17 AM CDT Florentin Arceo, Ch.B. LAB BLOOD N ON ADD-ON Performing Organization Address [facility] de Phone Number [facility] [address] [place] [address] * Thyroid Function [place] (05/09/2024 9:38 AM CDT) TSH, Sensitive 1.3 0.3 - 4.2 mIU/L 05/09/2024 10:51 AM CDT DTL Blood (Blood, Venous) 05/09/2024 9:38 AM CDT 05/09/2024 10:17 AM CDT Florentin Arceo, B. LAB BLOOD A DD-ON [facility] [address] [place] [address], [place] DTL [place] [facility] [address] [place] [address] * Pulmonary Function Tests (05/09/2024 7:33 AM CDT) FVC 5.41 L 05/09/2024 11:28 AM CDT [facility] FEV1 4.17 L 05/09/2024 11:28 AM CDT [facility] FEV1/FVC 77.05 % 05/09/2024 11:28 AM CDT [facility] JNV22-54% 3.67 L/s 05/09/2024 11:28 AM CDT [facility] PEF PRE 8.43 L/s 05/09/2024 11:28 AM CDT [facility] PIF PRE 6.34 L/s 05/09/2024 11:28 AM CDT [facility] FEF 50 % FIF 50 PRE 79.10 % 05/09/2024 11:28 AM CDT [facility] FET PRE 11.04 sec 05/09/2024 11:28 AM CDT [facility] DLCO 34.36 ml/(min*mm Hg) 05/09/2024 11:28 AM CDT [facility] DLCOc 34.17 ml/(min*mm Hg) 05/09/2024 11:28 AM CDT [facility] HB 14.80 g(Hb)/dL 05/09/2024 11:28 AM CDT [facility] VA 7.04 L 05/09/2024 11:28 AM CDT [facility] 05/09/2024 7:33 AM CDT Impressions [facility] - 05/09/2024 11:28 AM CDT Normal study. Narrative Procedure Note Nikki Watkins M.D. - 05/09/2024 IMPRESSION: Normal study. Florentin Arceo, Ch.B. PFT ORDERAB LES [place] SU[address] * Polysomnography (PSG): Split Night; Early PAP [...] the night CPAP was used with a [employer] small/medium interface. ??Pressure was increased to 15 [...] oxyhemoglobin saturation and in transcutaneous CO2. Florentin Arceo Ch.B. SLEEP [facility] R ORDERABLES ONBASE NA documented in this encounter Visit Diagnoses Diagnosis Morbid Obesity Body Mass Index >= 35 with Comorbid Condition (HCC)- Primary Apnea Sleep Obstructive Apnea Sleep Obstructive documented in this encounter
--- OUTSIDE RECORDS SUMMARY | 2024-05-23 01:00 | XMS_ITS | Clinical Summary ---
Author Organization [facility] Address [place], [place] [address] Care Team Providers Care Business Editor Name Role Phone Pcp, No Primary Care [...] 189 cm (6' 2.41) 12/30/2017 11:13 AM COUPON MANIFEST CLERK Body Mass Index 39.49 12/30/2017 11:13 AM COUPON MANIFEST CLERK Plan of Treatment Health Maintenance Due Date [...] age to complete this topic Care Teams Business Editor Relationship Specialty Start Date End Date Pcp, No . PCP - General 05/27/14
== END 2024-05-23 01:20 | disposition home or self-care (01) ==
PROVIDERS: Emergency Provider Family Medicine; PCP Family Medicine
DX: L03.115 Cellulitis of right lower limb (principal); I87.301 Chronic venous hypertension (idiopathic) without complications of right lower extremity
CPT/HCPCS: 99283; A9270

== ENCOUNTER 2024-06-15 09:39 | Outpatient (CLI) | payer BC, SELFPAY ==
--- OUTSIDE RECORDS SUMMARY | 2024-06-15 09:41 | XMS_ITS | Clinical Summary ---
Author Organization [facility] Address [address] [place] [address] Care Team Providers Care Printing Grey Cloth Tender Name Role Phone Unavailable Primary Care Provider Unavailabl e Source Comments Patient records contain information from all sites at [facility]. For routine questions regarding patient records, call [phone] during business hours, M-F 8:00 AM - 5:00 PM Central Time. Record requests for emergency care only can be directed to [phone] at any time.[facility] Allergies Active Allergy Reactions Criticality Noted Date [...] CDT Telemedicine [facility] in [place], [place] [address] [place] [phone] Florentin Leone M.B., Ch.B. Apnea Sleep Obstructive (Primary Dx); Acute Respiratory Failure With Hypercapnia (HCC) 05/09/2024 9:25 AM CDT - 05/09/2024 11:59 PM CDT Hospital Encounter Department of Laboratory Medicine and Pathology, [facility] in [place], [place] [address] [place] [phone] Florentin Leone M.B., Ch.B. Apnea Sleep Obstructive; Morbid Obesity Body Mass Index >= 35 with Comorbid Condition (HCC) Discharge Disposition: Home or Self Care 05/09/2024 6:21 AM CDT - 05/12/2024 11:59 PM CDT Hospital Encounter [facility] in [place], [place] [address] [place] [phone] Mehreen Drake M.D. Apnea Sleep Obstructive; Hypoxia Discharge Disposition: Home or Self Care 05/08/2024 6:11 PM CDT - 05/11/2024 11:59 PM CDT Hospital Encounter [facility] in [place], [place] [address] [place] [phone] Florentin Leone M.B., Ch.B. Apnea Sleep Obstructive Discharge Disposition: Home or Self Care 05/05/2024 [facility] Only [facility] in [place], [place] [address] [place] [phone] Mehreen Drake M.D. Apnea Sleep Obstructive (Primary Dx); Hypoxia 03/23/2024 10:00 AM CDT Comprehensive Visit [facility] in [place], [place] [address] [place] [phone] Florentin Leone M.B., Ch.B. Morbid Obesity Body Mass Index >= 35 with Comorbid Condition (HCC) (Primary Dx); Apnea Sleep Obstructive 03/22/2024 12:30 PM CDT Clinical Communication Virtual Review in [place], [place] 200 [place] [phone] Pre-visit Intake from Last 3 Months Social [...] LAB BLOOD A DD-ON Performing Organization Address [facility] [place] [address], [facility] [address] * Thyroid Function [place] (05/09/2024 9:38 AM CDT) TSH, Sensitive 1.3 0.3 - 4.2 mIU/L 05/09/2024 10:51 AM CDT DTL Blood (Blood, Venous) 05/09/2024 9:38 AM CDT 05/09/2024 10:17 AM CDT Florentin Arceo, ChGracielaB. LAB BLOOD A DD-ON [facility] [address] [place], [place] [phone] [place] [address] 200 [place] [address] * (ABNORMAL) AST (Aspartate Aminotransferase) (05/09/2024 9:38 AM CDT) Aspartate Aminotransferase (AST), S 62(H) 8 - 48 U/L 05/09/2024 10:51 AM CDT DT Blood (Blood, Venous) 05/09/2024 9:38 AM CDT 05/09/2024 10:17 AM CDT Florentin Arceo, ChGracielaB. LAB BLOOD A DD-ON Performing Organization Address City/[facility] Co de Phone Number [facility] [address] [place] [address] * Alkaline Phosphatase (05/09/2024 9:38 AM CDT) Alkaline Phosphatase, S 81 40 - 129 U/L 05/09/2024 10:51 AM CDT DT Blood (Blood, Venous) 05/09/2024 9:38 AM CDT 05/09/2024 10:17 AM CDT Florentin Arceo, Ch.B. LAB BLOOD A DD-ON Performing Organization Address City/[facility]/ZIP Co de Phone Number [facility] [address] [place], [place] [address] [place] [address] 200 [place] [address] * (ABNORMAL) Hemoglobin A1c (05/09/2024 9:38 AM [...] LAB BLOOD A DD-ON Performing Organization Address [facility] [place] [address] * Glucose, Fasting (05/09/2024 9:38 AM CDT) Glucose, P 97 70 - 100 mg/dL 05/09/2024 10:32 AM CDT DTL Last Intake 1 hr 05/09/2024 10:17 AM CDT DTL Blood (Blood, Venous) 05/09/2024 9:38 AM CDT 05/09/2024 10:17 AM CDT Florentin Arceo, ChGracielaB. LAB BLOOD N ON ADD-ON Performing Organization Address [facility] [place] [address] * Creatinine with Estimated GFR (05/09/2024 9:38 AM CDT) Creatinine 0.94 0.74 - 1.35 mg/dL 05/09/2024 10:51 AM CDT DTL Estimated GFR (eGFR) >90 >=60 mL/min/BSA 05/09/2024 10:51 AM CDT DTL Comment: Estimated GFR calculated using the 2020 CKD_EPI creatinine equation. Blood (Blood, Venous) 05/09/2024 9:38 AM CDT 05/09/2024 10:17 AM CDT Florentin Arceo, B. LAB BLOOD A DD-ON Performing Organization Address City/[facility]/ZIP Co de Phone Number [facility] 200 [place] [address] * Bicarbonate (05/09/2024 9:38 AM CDT) Bicarbonate, S 27 22 - 29 mmol/L 05/09/2024 10:51 AM CDT DTL Blood (Blood, Venous) 05/09/2024 9:38 AM CDT 05/09/2024 10:17 AM CDT Florentin Arceo, Ch.B. LAB BLOOD A DD-ON Performing Organization Address [facility] Co de Phone Number [facility] [address] [place] [address] * Pulmonary Function Tests (05/09/2024 7:33 AM CDT) FVC 5.41 L 05/09/2024 11:28 AM CDT [facility] FEV1 4.17 L 05/09/2024 11:28 AM CDT [facility] FEV1/FVC 77.05 % 05/09/2024 11:28 AM CDT [facility] RTK50-13% 3.67 L/s 05/09/2024 11:28 AM CDT [facility] [...] Mehreen Ochoa M.D. LAB BLOOD ADD -ON [facility] 200 [place] [address], [facility] 200 [place] [address] * Polysomnography (PSG): Split Night; Early PAP [...]
--- OUTSIDE RECORDS SUMMARY | 2024-06-15 09:41 | XMS_ITS | Referral Summary ---
Author Organization [facility] Address [address] [place] [address] Care Team Providers Care Geomorphology Teacher Name Role Phone Unavailable Primary Care Provider Unavailabl e Source Comments Patient records contain information from all sites at [facility]. For routine questions regarding patient records, call [phone] during business hours, M-F 8:00 AM - 5:00 PM Central Time. Record requests for emergency care only can be directed to [phone] at any time.[facility] Encounters Date Type Department Care Team Description 05/13/2024 9:00 AM CDT Telemedicine [facility] in [place], [place] [address] [place] [phone] Florentin Leone M.B., Ch.B. Apnea Sleep Obstructive (Primary Dx); Acute Respiratory Failure With Hypercapnia (HCC) 05/09/2024 6:21 AM CDT - 05/12/2024 11:59 PM CDT Hospital Encounter [facility] in [place], [place] [address] [place] [phone] Mehreen Drake M.D. Apnea Sleep Obstructive; Hypoxia Discharge Disposition: Home or Self Care 05/08/2024 6:11 PM CDT - 05/11/2024 11:59 PM CDT Hospital Encounter [facility] in [place], [place] [address] [place] [phone] Florentin Leone M.B., Ch.B. Apnea Sleep Obstructive Discharge Disposition: Home or Self Care 05/09/2024 9:25 AM CDT - 05/09/2024 11:59 PM CDT Hospital Encounter Department of Laboratory Medicine and Pathology, [facility], in [place], [place] [address] [place] [phone] Florentin Leone M.B., Ch.B. Apnea Sleep Obstructive; Morbid Obesity Body Mass Index >= 35 with Comorbid Condition (HCC) Discharge Disposition: Home or Self Care 05/05/2024 Orders Only [facility] in [place], [place] [address] [place] [phone] Mehreen Drake M.D. Apnea Sleep Obstructive (Primary Dx); Hypoxia 03/23/2024 10:00 AM CDT Comprehensive Visit [facility] in [place], [place] [address] [place] [phone] Florentin Leone M.B., Ch.B. Morbid Obesity Body Mass Index >= 35 with Comorbid Condition (HCC) (Primary Dx); Apnea Sleep Obstructive 03/22/2024 12:30 PM CDT Clinical Communication Virtual Review in [place], [place] 200 [place] [address] Pre-visit Intake from Last 3 Months Allergies [...] LAB BLOOD A DD-ON Performing Organization Address [facility] Co de Phone Number [facility] 200 [place] [address], [facility] 200 [place] [address] * Thyroid Function [place] (05/09/2024 9:38 AM CDT) TSH, Sensitive 1.3 0.3 - 4.2 mIU/L 05/09/2024 10:51 AM CDT DTL Blood (Blood, Venous) 05/09/2024 9:38 AM CDT 05/09/2024 10:17 AM CDT Florentin Arceo, Ch.B. LAB BLOOD A DD-ON Performing Organization Address [facility] Co de Phone Number [facility] 200 [place] [address], [facility] 200 [place] [address] * (ABNORMAL) AST (Aspartate Aminotransferase) (05/09/2024 9:38 AM CDT) Aspartate Aminotransferase (AST), S 62(H) 8 - 48 U/L 05/09/2024 10:51 AM CDT DTL Blood (Blood, Venous) 05/09/2024 9:38 AM CDT 05/09/2024 10:17 AM CDT Florentin Arceo, Ch.B. LAB BLOOD A DD-ON Performing Organization Address City/[facility]/ZIP Co de Phone Number [facility] [address] [facility] 200 [place] [address] * Alkaline Phosphatase (05/09/2024 9:38 AM CDT) Alkaline Phosphatase, S 81 40 - 129 U/L 05/09/2024 10:51 AM CDT DTL Blood (Blood, Venous) 05/09/2024 9:38 AM CDT 05/09/2024 10:17 AM CDT Florentin Arceo, ChGracielaB. LAB BLOOD A DD-ON Performing Organization Address City/[facility] Co de Phone Number [facility] 200 [place] [address] * (ABNORMAL) Hemoglobin A1c (05/09/2024 9:38 AM CDT) [facility] Hemoglobin A1c, B 6.2(H) 4.0 - 5.6 % 05/09/2024 11:08 AM CDT DTL Comment: Hemoglobin A1c values of 5.7-6.4 percent indicate an increased risk for developing diabetes mellitus. In diabetic patients, HbA1c goals should be discussed with healthcare provider. Blood (Blood, Venous) 05/09/2024 9:38 AM CDT 05/09/2024 10:03 AM CDT Florentin Arceo, Ch.B. LAB BLOOD A DD-ON [facility] 200 [place] [address] * Glucose, Fasting (05/09/2024 9:38 AM CDT) Pathologist [facility] Glucose, P 97 70 - 100 mg/dL 05/09/2024 10:32 AM CDT DT Last Intake 1 hr 05/09/2024 10:17 AM CDT DTL Blood (Blood, Venous) 05/09/2024 9:38 AM CDT 05/09/2024 10:17 AM CDT Florentin Arceo Ch.B. LAB BLOOD N ON ADD-ON [facility] [address] [facility] [address] [place] [address] * Creatinine with Estimated GFR (05/09/2024 9:38 AM CDT) Creatinine 0.94 0.74 - 1.35 mg/dL 05/09/2024 10:51 AM CDT DTL Estimated GFR (eGFR) >90 >=60 mL/min/BSA 05/09/2024 10:51 AM CDT DTL Comment: Estimated GFR calculated using the 2020 CKD_EPI creatinine equation. Blood (Blood, Venous) 05/09/2024 9:38 AM CDT 05/09/2024 10:17 AM CDT Florentin Arceo Ch.B. LAB BLOOD A DD-ON Performing Organization Address [facility] Co de Phone Number [facility] [address] [facility] [address] [place] [address] * Bicarbonate (05/09/2024 9:38 AM CDT) Bicarbonate, S 27 22 - 29 mmol/L 05/09/2024 10:51 AM CDT DTL Blood (Blood, Venous) 05/09/2024 9:38 AM CDT 05/09/2024 10:17 AM CDT Florentin Arceo Ch.B. LAB BLOOD A DD-ON Performing Organization Address City/[facility]/ZIP Co de Phone Number [facility] [address] [place] [address], [facility] DTL [facility] [address] [place] [address] * Pulmonary Function Tests (05/09/2024 7:33 AM CDT) FVC 5.41 L 05/09/2024 11:28 AM CDT [facility] FEV1 4.17 L 05/09/2024 11:28 AM CDT [facility] FEV1/FVC 77.05 % 05/09/2024 11:28 AM CDT [facility] SAP21-47% 3.67 L/s 05/09/2024 11:28 AM CDT [facility] PEF PRE 8.43 L/s 05/09/2024 11:28 AM CDT [facility] PIF PRE 6.34 L/s 05/09/2024 11:28 AM CDT [facility] FEF 50 % FIF 50 PRE 79.10 % 05/09/2024 11:28 AM CDT [facility] FET PRE 11.04 sec 05/09/2024 11:28 AM CDT [facility] DLCO 34.36 ml/(min*mm Hg) 05/09/2024 11:28 AM CDT [facility] DLCOc 34.17 ml/(min*mm Hg) 05/09/2024 11:28 AM CDT [facility] HB 14.80 g(Hb)/dL 05/09/2024 11:28 AM CDT [facility] VA 7.04 L 05/09/2024 11:28 AM CDT [facility] 05/09/2024 7:33 AM CDT Impressions [facility] - 05/09/2024 11:28 AM CDT Normal study. Narrative Procedure Note Nikki Watkins M.D. - 05/09/2024 IMPRESSION: Normal study. Florentin Arceo, B. PFT ORDERAB LES [facility] NA * (ABNORMAL) Arterial Blood Gas - [...] Mehreen Ochoa M.D. LAB BLOOD ADD -ON [facility] [address] [place] [address], [place] DTL [facility] [address] [place] [address] * Polysomnography (PSG): Split Night; Early PAP [...] the night CPAP was used with a [employer] small/medium interface. ??Pressure was increased to 15 [...]
--- OUTSIDE RECORDS SUMMARY | 2024-06-15 09:42 | XMS_ITS | Encounter Summary ---
Author Organization [facility] Address [address] [place] [address] Care Team Providers Care Mold Sprayer Name Role Phone Unavailable Primary Care Provider Unavailabl e Encounter Details Date Type Department Care Team (Late st Contact Info) Description 05/05/2024 Orders Only [facility] in [place], [place] [address] [place] [phone] Mehreen Ochoa M.D. [address] [place] [address] Apnea Sleep Obstructive (Primary Dx); Hypoxia Social [...] Mehreen Ochoa M.D. LAB BLOOD ADD -ON [facility] [address] [place] [address], [facility] LaboratoriesD[facility] [address] [place] [address] documented in this encounter Visit Diagnoses Diagnosis Apnea Sleep Obstructive- Primary Hypoxia documented in this encounter
--- OUTSIDE RECORDS SUMMARY | 2024-06-15 09:42 | XMS_ITS | Encounter Summary ---
Author Organization [facility] Address [address] [place] [address] Care Team Providers Care Parachute Officer Name Role Phone Unavailable Primary Care Provider Unavailabl e Encounter Details Date Type Department Care Team (Latest Contact Info) Description 05/09/2024 6:21 AM CDT - 05/12/2024 11:59 PM CDT Hospital Encounter [facility] in [place], [place] [address] [place] [phone] Mehreen Ochoa M.D. [address] [place] [address] Apnea Sleep Obstructive; Hypoxia Discharge Disposition: Home [...] Ochoa M.D. LAB BLOOD ADD -ON [facility] [address] [place] [address], [facility] DTL [facility] [address] [place] [address] documented in this encounter Visit Diagnoses Diagnosis Apnea Sleep Obstructive Hypoxia documented in this encounter
--- OUTSIDE RECORDS SUMMARY | 2024-06-15 09:42 | XMS_ITS | Encounter Summary ---
Author Organization [facility] Address [address] [place] [address] Care Team Providers Care Mortar Man Name Role Phone Unavailable Primary Care Provider Unavailabl e Reason for Referral * Outpatient (Routine) - Authorized Specialty Diagnoses / Procedures Referred By Contac t Referred To Contact Diagnoses Apnea Sleep Obstructive Procedures [facility] Overnight Pulse Oximetry Florentin Leone M.B., Ch.B. [address] [place] [phone] [facility] Referral ID Status Reason Start Date Expiration Date V isits Requested Visits Authorized [id number] Authorized 05/13/2024 05/13/2025 1 1 * Outpatient (Routine) - Authorized Specialty Diagnoses / Procedures Referred By Contac t Referred To Contact Sleep Medicine Florentin Leone M.B., Ch.B. [address] [place] [phone] [facility] Referral ID Status Reason Start Date Expiration Date V isits Requested Visits Authorized [id number] Authorized 05/13/2024 11/12/2025 1 1 Scheduling Instructions General continuity clinic in about 6 weeks Reason for Visit * Outpatient (Routine) - Closed Specialty Diagnoses / Procedures Referred By Contac t Referred To Contact Sleep Florentin Sosa M.B., Ch.B. [address] [place] [phone] [facility] Referral ID Status Reason Start Date Expiration Date Visits Re quested Visits Authorized [id number] Closed 03/23/2024 09/22/2025 1 1 Encounter Details Date Type Department Care Team (Late st Contact Info) Description 05/13/2024 9:00 AM CDT Telemedicine [facility] in [place], [place] [address] [place] [address] Florentin Leone M.B., Ch.B. [address] [place] [phone] Apnea Sleep Obstructive (Primary Dx); Acute Respiratory [...] technology. I was in my office at [facility]. ASSESSMENT / PLAN #1 Obstructive sleep apnea [...] this is unlikely to happen before the [facility]. In the meantime, I am happy to hear that his primary care physician has prescribed semaglutide and he is already lost 7 lb weight. I will write to him and are ask if he will kindly address the patient's hyperlipidemia. Total time: 35 minutes [id number] and non [id number] documented in this encounter Plan of Treatment [...]
--- OUTSIDE RECORDS SUMMARY | 2024-06-15 09:42 | XMS_ITS | Encounter Summary ---
Author Organization [facility] Address [address] [place] [address] Care Team Providers Care Metal Furniture Assembler Name Role Phone Unavailable Primary Care Provider Unavailabl e Encounter Details Date Type Department Care Team (Latest Contact Info) Description 05/09/2024 9:25 AM CDT - 05/09/2024 11:59 PM CDT Hospital Encounter Department of Laboratory Medicine and Pathology, [facility] in [place], [place] [address] [place] [phone] Florentin Leone M.B., Ch.B. [address] [place] [phone] Apnea Sleep Obstructive; Morbid Obesity Body Mass [...] Ch.B. LAB BLOOD A DD-ON [facility] [address] [place] [address], [place] DTDepartment of Veterans Affairs [facility] [address] [place] [address] * (ABNORMAL) Hemoglobin A1c (05/09/2024 9:38 AM [...] Florentin Arceo, BGraciela LAB BLOOD A DD-ON [facility] [address] [place] [address], [facility] DTDepartment of Veterans Affairs [facility] [address] [place] [address] * (ABNORMAL) Lipid Panel (05/09/2024 9:38 AM [...] LAB BLOOD A DD-ON Performing Organization Address [facility] Co de Phone Number [facility] 200 [place] [address], [facility] [place] [address] * Creatinine with Estimated GFR (05/09/2024 9:38 AM CDT) Creatinine 0.94 0.74 - 1.35 mg/dL 05/09/2024 10:51 AM CDT DTL Estimated GFR (eGFR) >90 >=60 mL/min/BSA 05/09/2024 10:51 AM CDT DTL Comment: Estimated GFR calculated using the 2020 CKD_EPI creatinine equation. Blood (Blood, Venous) 05/09/2024 9:38 AM CDT 05/09/2024 10:17 AM CDT Florentin Arceo, Ch.B. LAB BLOOD A DD-ON Performing Organization Address [facility] Co de Phone Number [facility] [address] [place] [address], [facility] [place] [address] * Alkaline Phosphatase (05/09/2024 9:38 AM CDT) Alkaline Phosphatase, S 81 40 - 129 U/L 05/09/2024 10:51 AM CDT DTL Blood (Blood, Venous) 05/09/2024 9:38 AM CDT 05/09/2024 10:17 AM CDT Florentin Arceo, ChGracielaB. LAB BLOOD A DD-ON Performing Organization Address City/[facility]/ZIP Co de Phone Number [facility] [address] 200 [place] [address] * (ABNORMAL) AST (Aspartate Aminotransferase) (05/09/2024 9:38 AM CDT) Aspartate Aminotransferase (AST), S 62(H) 8 - 48 U/L 05/09/2024 10:51 AM CDT DTL Blood (Blood, Venous) 05/09/2024 9:38 AM CDT 05/09/2024 10:17 AM CDT Florentin Arceo, Ch.B. LAB BLOOD A DD-ON Performing Organization Address [facility] Co de Phone Number [facility] [address] 200 [place] [address] * Glucose, Fasting (05/09/2024 9:38 AM CDT) Glucose, P 97 70 - 100 mg/dL 05/09/2024 10:32 AM CDT DTL Last Intake 1 hr 05/09/2024 10:17 AM CDT DTL Blood (Blood, Venous) 05/09/2024 9:38 AM CDT 05/09/2024 10:17 AM CDT Florentin Arceo, Ch.B. LAB BLOOD N ON ADD-ON Performing Organization Address City/[facility]/ZIP Co de Phone Number [facility] [address] [place] [address] * Thyroid Function [place] (05/09/2024 9:38 AM CDT) TSH, Sensitive 1.3 0.3 - 4.2 mIU/L 05/09/2024 10:51 AM CDT DTL Blood (Blood, Venous) 05/09/2024 9:38 AM CDT 05/09/2024 10:17 AM CDT Florentin Arceo, Ch.B. LAB BLOOD A DD-ON [address] [address], [facility] DTL [address] [address] documented in this encounter Visit Diagnoses Diagnosis Apnea Sleep Obstructive Morbid Obesity Body Mass Index >= 35 with Comorbid Condition (HCC) documented in this encounter
--- OUTSIDE RECORDS SUMMARY | 2024-06-15 09:42 | XMS_ITS | Encounter Summary ---
Author Organization [facility] Address [address] [place] [address] Care Team Providers Care Weight Yardage Checker Name Role Phone Unavailable Primary Care Provider Unavailabl e Reason for Referral * Outpatient (Routine) - Closed Specialty Diagnoses / Procedures Referred By Parker trejo Referred To Contact Sleep Medicine Diagnoses Apnea Sleep Obstructive You Ruiz M.D. [address] [place] [address] [facility] Referral ID Status Reason Start Date Expiration Date Visits Re quested Visits Authorized [id number] Closed 02/18/2024 08/19/2025 1 1 Encounter Details Date Type Department Care Team (Late st Contact Info) Description 02/18/2024 [facility] [address] [place] [address] You Ruiz M.D. [address] [place] [phone] Apnea Sleep Obstructive (Primary Dx) Social History [...]
--- OUTSIDE RECORDS SUMMARY | 2024-06-15 09:42 | XMS_ITS | Encounter Summary ---
Author Organization [facility] Address [address] [place] [address] Care Team Providers Care Manager Telecom Name Role Phone Unavailable Primary Care Provider Unavailabl e Reason for Referral * Outpatient (Routine) - Closed Specialty Diagnoses / Procedures Referred By Parker trejo Referred To Contact Diagnoses Apnea Sleep Obstructive Procedures Polysomnography (PSG): Split Night; Early PAP Initiation; CPAP, Bilevel S Mode, Bilevel S-T Mode Florentin Leone M.B., Ch.B. 200 [place] [address] [facility] Referral ID Status Reason Start Date Expiration Date Visits Re quested Visits Authorized [id number] Closed 03/23/2024 03/23/2025 1 1 Reason for Visit * Outpatient (Routine) - Closed Specialty Diagnoses / Procedures Referred By Parker trejo Referred To Contact Diagnoses Apnea Sleep Obstructive Procedures Polysomnography (PSG): Split Night; Early PAP Initiation; CPAP, Bilevel S Mode, Bilevel S-T Mode Florentin Leone M.B., Ch.B. 200 [place] [address] [facility] Referral ID Status Reason Start Date Expiration Date Visits Re quested Visits Authorized [id number] Closed 03/23/2024 03/23/2025 1 1 Encounter Details Date Type Department Care Team (Latest Contact Info) Description 05/08/2024 6:11 PM CDT - 05/11/2024 11:59 PM CDT Hospital Encounter [facility] in [place], [place] [address] [place] [address] Florentin Leone M.B., Ch.B. [address] [place] [address] Apnea Sleep Obstructive Discharge Disposition: Home or [...] the night CPAP was used with a [employer] small/medium interface. ??Pressure was increased to 15 [...] saturation and in transcutaneous CO2. Florentin Arceo, [place] [facility] ORDERABLES ONBASE NA documented in this encounter Visit Diagnoses Diagnosis Apnea Sleep Obstructive documented in this encounter
--- OUTSIDE RECORDS SUMMARY | 2024-06-15 09:42 | XMS_ITS | Clinical Summary ---
Author Organization [facility] Address [place], [place] [address] Care Team Providers Care Fire Alarm Inspector Name Role Phone Pcp, No Primary Care [...] 189 cm (6' 2.41) 12/30/2017 11:13 AM THREAD DRAWER Body Mass Index 39.49 12/30/2017 11:13 AM THREAD DRAWER Plan of Treatment Health Maintenance Due Date [...] age to complete this topic Care Teams Fire Alarm Inspector Relationship Specialty Start Date End Date Pcp, No . PCP - General 05/27/14
--- OUTSIDE RECORDS SUMMARY | 2024-06-15 09:42 | XMS_ITS ---
Author Organization [facility] Address [address] [place] [address] Care Team Providers Care Lockstitch Binder Name Role Phone Unavailable Unavailable Unavailable Surgery Details Not on file Complications Check Surgery Details section. Procedure Estimated Blood Loss Check Surgery Details section. Procedure Findings Check Surgery Details section. Procedure Specimens Taken Check Surgery Details section.
--- OUTSIDE RECORDS SUMMARY | 2024-06-15 09:42 | XMS_ITS | Encounter Summary ---
Author Organization [facility] Address [address] [place] [address] Care Team Providers Care Railroad Dining Car Steward/Stewardess Name Role Phone Unavailable Primary Care Provider Unavailabl e Reason for Referral * Outpatient (Routine) - Closed Specialty Diagnoses / Procedures Referred By Parker t Referred To Contact Sleep Medicine Florentin Leone M.B., Ch.B. [address] [place] [phone] [facility] Referral ID Status Reason Start Date Expiration Date Visits Re quested Visits Authorized [id number] Closed 03/23/2024 09/22/2025 1 1 * Outpatient (Routine) - Closed Specialty Diagnoses / Procedures Referred By Contac t Referred To Contact Diagnoses Apnea Sleep Obstructive Procedures Polysomnography (PSG): Split Night; Early PAP Initiation; CPAP, Bilevel S Mode, Bilevel S-T Mode Florentin Leone M.B., Ch.B. [address] [place] [phone] [facility] Referral ID Status Reason Start Date Expiration Date Visits Re quested Visits Authorized [id number] Closed 03/23/2024 03/23/2025 1 1 * Outpatient (Routine) - Authorized Specialty Diagnoses / Procedures Referred By Contac t Referred To Contact Endocrinology Diagnoses Apnea Sleep Obstructive Morbid Obesity Body Mass Index >= 35 with Comorbid Condition (HCC) Florentin Leone M.B., Ch.B. [address] [place] [phone] [facility] Referral ID Status Reason Start Date Expiration Date V isits Requested Visits Authorized [id number] Authorized 03/23/2024 09/22/2025 1 1 * Outpatient (Routine) - Authorized Specialty Diagnoses / Procedures Referred By Parker trejo Referred To Contact Nutrition Diagnoses Apnea Sleep Obstructive Morbid Obesity Body Mass Index >= 35 with Comorbid Condition (HCC) Florentin Leone M.B., Ch.B. [address] [place] [phone] [facility] Referral ID Status Reason Start Date Expiration Date V isits Requested Visits Authorized [id number] Authorized 03/23/2024 09/22/2025 1 1 Reason for Visit * Outpatient (Routine) - Closed Specialty Diagnoses / Procedures Referred By Parker trejo Referred To Contact Sleep Medicine Diagnoses Apnea Sleep Obstructive You Ruiz M.D. [address] [place] [phone] [facility] Referral ID Status Reason Start Date Expiration Date Visits Re quested Visits Authorized [id number] Closed 02/18/2024 08/19/2025 1 1 Encounter Details Date Type Department Care Team (Latest Contact Info) Description 03/23/2024 10:00 AM CDT Comprehensive Visit [facility] in [place], [place] [address] [place] [phone] Florentin Leone M.B., Ch.B. [address] [place] [phone] Morbid Obesity Body Mass Index >= 35 [...] profoundly sleepy during the day with an [place] Sleepiness scale of 17. Can fall asleep [...] history. Social History: Fiancee with 3 children. [employer]. Smokes half a pack a [...] Florentin Arceo, BGraciela [place] [address], [facility] [place] [address] * (ABNORMAL) Hemoglobin A1c (05/09/2024 9:38 AM [...] B. LAB BLOOD A DD-ON [facility] [address] [place] [address], [facility] [address] [place] [address] * (ABNORMAL) Lipid Panel (05/09/2024 9:38 AM [...] Florentin Arceo, B. LAB BLOOD A DD-ON [facility] 200 [place] [address], [facility] [address] [place] [address] * Creatinine with Estimated GFR (05/09/2024 9:38 [...] Performing Organization Address City/[facility] Co de Phone Number [facility] [address] [place] [address], [facility] 200 [place] [address] * Alkaline Phosphatase (05/09/2024 9:38 AM CDT) Alkaline Phosphatase, S 81 40 - 129 U/L 05/09/2024 10:51 AM CDT DTL Blood (Blood, Venous) 05/09/2024 9:38 AM CDT 05/09/2024 10:17 AM CDT Florentin Arceo, B. LAB BLOOD A DD-ON Performing Organization Address City/[facility]/ZIP Co de Phone Number [facility] [address] [place] [address], [facility] [address] [place] [address] * (ABNORMAL) AST (Aspartate Aminotransferase) (05/09/2024 9:38 AM CDT) Aspartate Aminotransferase (AST), S 62(H) 8 - 48 U/L 05/09/2024 10:51 AM CDT DTL Blood (Blood, Venous) 05/09/2024 9:38 AM CDT 05/09/2024 10:17 AM CDT Florentin Arceo, B. LAB BLOOD A DD-ON Performing Organization Address [facility] de Phone Number [facility] [address] [place] [address] * Glucose, Fasting (05/09/2024 9:38 AM CDT) Glucose, P 97 70 - 100 mg/dL 05/09/2024 10:32 AM CDT DTL Last Intake 1 hr 05/09/2024 10:17 AM CDT DTL Blood (Blood, Venous) 05/09/2024 9:38 AM CDT 05/09/2024 10:17 AM CDT Florentin rAceo, Ch.B. LAB BLOOD N ON ADD-ON Performing Organization Address [facility] de Phone Number [facility] [address] 200 [place] [address] * Thyroid Function [place] (05/09/2024 9:38 AM CDT) TSH, Sensitive 1.3 0.3 - 4.2 mIU/L 05/09/2024 10:51 AM CDT DTL Blood (Blood, Venous) 05/09/2024 9:38 AM CDT 05/09/2024 10:17 AM CDT Florentin Arceo, B. LAB BLOOD A DD-ON [facility] [address] [place] [address], [place] DTL [facility] [address] [place] [address] * Pulmonary Function Tests (05/09/2024 7:33 AM CDT) FVC 5.41 L 05/09/2024 11:28 AM CDT [facility] FEV1 4.17 L 05/09/2024 11:28 AM CDT [facility] FEV1/FVC 77.05 % 05/09/2024 11:28 AM CDT [facility] NFL77-75% 3.67 L/s 05/09/2024 11:28 AM CDT [facility] PEF PRE 8.43 L/s 05/09/2024 11:28 AM CDT [facility] PIF PRE 6.34 L/s 05/09/2024 11:28 AM CDT [facility] FEF 50 % FIF 50 PRE 79.10 % 05/09/2024 11:28 AM CDT [facility] FET PRE 11.04 sec 05/09/2024 11:28 AM CDT [facility] DLCO 34.36 ml/(min*mm Hg) 05/09/2024 11:28 AM CDT [facility] DLCOc 34.17 ml/(min*mm Hg) 05/09/2024 11:28 AM CDT [facility] HB 14.80 g(Hb)/dL 05/09/2024 11:28 AM CDT [facility] VA 7.04 L 05/09/2024 11:28 AM CDT [facility] 05/09/2024 7:33 AM CDT Impressions [facility] - 05/09/2024 11:28 AM CDT Normal [...] the night CPAP was used with a Pixel Velocity small/medium interface. ??Pressure was increased to 15 [...] in transcutaneous CO2. Florentin Arceo Ch.B. SLEEP [facility] ORDERABLES ONBASE NA documented in this encounter Visit Diagnoses Diagnosis Morbid Obesity Body Mass Index >= 35 with Comorbid Condition (HCC)- Primary Apnea Sleep Obstructive Apnea Sleep Obstructive documented in this encounter
--- OUTSIDE RECORDS SUMMARY | 2024-06-15 09:42 | XMS_ITS | Encounter Summary ---
Author Organization [facility] Address [address] [place] [address] Care Team Providers Care Mechanical Unit Repairer Name Role Phone Unavailable Primary Care Provider Unavailabl e Reason for Visit * Reason Onset Date Comments Pre-visit Intake 03/22/2024 Encounter Details Date Type Department Care Team (Latest Contact Info) Description 03/22/2024 12:30 PM CDT Clinical Communication Virtual Review in [place], [place] 200 [place] [phone] Pre-visit Intake Social History Tobacco Use Types [...]
== END 2024-06-15 09:40 | disposition home or self-care (01) ==
PROVIDERS: PCP Family Medicine; Visit Provider Family Medicine
DX: E78.2 Mixed hyperlipidemia (principal); E11.9 Type 2 diabetes mellitus without complications; E66.01 Morbid (severe) obesity due to excess calories
CPT/HCPCS: 80048; 80061

== ENCOUNTER 2024-10-20 12:30 | Outpatient (CLI) | payer BC, SELFPAY | END 2024-10-20 12:31 | disposition home or self-care (01) | PROVIDERS: PCP Family Medicine; Visit Provider Family Medicine | DX: E78.2 Mixed hyperlipidemia (principal); E11.9 Type 2 diabetes mellitus without complications; E66.01 Morbid (severe) obesity due to excess calories | CPT/HCPCS: 80061; 84460 ==

== ENCOUNTER 2024-12-08 17:06 | Emergency (ER) | payer BC, SELFPAY ==
[2024-12-08 17:38] VITALS: BP 149/82; PULSE 91; RESP 18; TEMP 36.7; O2SAT 94; BMI 45.6
--- NOTE | 2024-12-08 19:17 | ED.EAR ---
HPI - Ear Problem General Chief complaint: Ear/Nose/Throat Problem Stated complaint: L ear pain-cant hear Time Seen by Provider: 12/08/24 19:10 History of Present Illness HPI Narrative: This 39-year-old male comes in with left ear pain and decreased hearing on the left side. He states that these symptoms arose today. He has been having some cough and congestion symptoms for the past week or so. Related Data Previous Rx's ?Medication ?Instructions ?Recorded semaglutide 2 mg/dose (8 mg/3 mL) 2 mg (0.75 mL) subcut QWEEK #3 mL 10/20/24 subcutaneous pen injector atorvastatin 20 mg tablet 20 mg PO QHS #90 tabs 10/21/24 Allergies Allergy/AdvReac Type Severity Reaction Status Date / Time No Known Drug Allergies Allergy Verified 12/08/24 17:44 Review of Systems Status of ROS: Reports: 10 or more systems reviewed and unremarkable except as noted in History and below Narrative: Constitutional: No fevers, no weight gain or loss. Eyes: No discharge. No vision changes. HENT: No sore throat. Left ear pain. Cardiovascular: No chest pain, no palpitations. Respiratory: No shortness of breath, no wheezes, no cough. Gastrointestinal: No abdominal pain, no vomiting, no diarrhea. Genitourinary: No dysuria, no hematuria. Musculoskeletal: Normal range of motion. Skin: No rashes, no pruritis. Neurological: No dizziness, weakness, sensory change, speech change. Endo/Heme/Allergies: No bruising or bleeding. No polydipsia. Pysch: no suicidality, no anxiety, no insomnia. All other systems reviewed and are negative. [facility] Medical History (Updated 12/08/24 @ 19:22 by Barron Johnson MD) Mixed hyperlipidemia ?E78.2 - Mixed hyperlipidemia (ICD-10) Type 2 diabetes mellitus, without long-term current use of insulin ?E11.9 - Type 2 diabetes mellitus without complications (ICD-10) Erectile dysfunction ?N52.9 - Male erectile dysfunction, unspecified (ICD-10) Morbid obesity ?E66.01 - Morbid (severe) obesity due to excess calories (ICD-10) Obstructive sleep apnea ?G47.33 - Obstructive sleep apnea (adult) (pediatric) (ICD-10) Allergic rhinitis ?J30.9 - Allergic rhinitis, unspecified (ICD-10) Lymphedema of right lower extremity ?I89.0 - Lymphedema, not elsewhere classified (ICD-10) Lower gastrointestinal hemorrhage ?K92.2 - Gastrointestinal hemorrhage, unspecified (ICD-10) Gout ?M10.9 - Gout, unspecified (ICD-10) External hemorrhoids ?K64.4 - Residual hemorrhoidal skin tags (ICD-10) Surgical History H/O toe surgery ?Z98.890 - Other specified postprocedural states (ICD-10) History of umbilical hernia repair (2019) ?Z98.890 - Other specified postprocedural states (ICD-10) ?Z87.19 - Personal history of other diseases of the digestive system (ICD-10) Social History (Updated 10/20/24 @ 08:33 by Alyx Orozco ~ RMA, RMA) Narrative: works for [employer] smokes 1/2 PPD. Minimal Alcohol What is your current living situation?: I presently have a place to live Problems where you live: pests, such as bugs, ants, or mice In the past 12 months, utilities in danger of being shut off: no In past 12 months, lack of transportation kept you from medical appts, meetings, work, or getting things needed for daily living: no In the past 12 mos, have been you worried that your food would run out before you had money to buy more?: never true In the past 12 mos, the food you bought just didn't last and you didn't have money to buy more?: never true Smoking Status: Current every day smoker What tobacco products do you use: cigarettes How often do you have a drink containing alcohol: monthly or less How many standard drinks containing alcohol do you have on a typical day: 1 or 2 AUDIT-C Alcohol total score: 1 Non-prescribed substance use: denies use How often does anyone, including family, friends and others, physically hurt you: never How often does anyone, including family, friends and others, insult or talk down to you: never How often does anyone, including family, friends and others, threaten you with harm: never How often does anyone, including family, friends and others, scream or curse at you: never service: No Health Related Social Needs: Inadequate housing (Z59.1) Exam Narrative: Exam Narrative: Constitutional: Well-developed, well-nourished, no acute distress. HEENT: Normocephalic, atraumatic. Right tympanic membrane appears normal. Left tympanic membrane is erythematous with bulging from purulence. Decreased hearing on the left due to these findings. Neck: Normal range of motion. Nontender. Supple. Heart: Regular. No murmurs. Normal rate. Intact distal pulses. Lungs: Clear to auscultation. No chest discomfort. No wheezes, rhonchi, or rales. Abdomen: Normal bowel sounds. Nontender. No rebound tenderness. Genitalia: Deferred. Back: No midline tenderness. Normal range of motion. Extremities: Normal range of motion. No injury. Skin: Intact. No rash. Warm. No erythema or pallor. Neurologic: No altered sensation. No weakness. Alert and oriented. Psychiatric: No suicidality. No anxiety or depression. No insomnia. Nursing notes and vitals signs are reviewed. Const: Vital Signs, click to edit/add: Vital Signs - 24 hr 12/08/24 17:38 Temperature 98.1 F Pulse Rate [Pulse Oximeter] 91 Respiratory Rate 18 Blood Pressure [Ri ght Upper Arm] 149/82 H Pulse Oximetry 94 Oxygen Delivery Me thod Room Air Course Vital Signs Vital signs: Initial Vital Signs Temperature 98.1 F 12/08/24 17:38 Temperature Source Temporal Artery Scan 12/08/24 17:38 Pulse Rate 91 12/08/24 17:38 Respiratory Rate 18 12/08/24 17:38 Blood Pressure 149/82 H 12/08/24 17:38 Blood Pressure Mean 104 12/08/24 17:38 Blood Pressure Position Sitting 12/08/24 17:38 Pulse Oximetry 94 12/08/24 17:38 Oxygen Delivery Method Room Air 12/08/24 17:38 Vital Signs Temperature 98.1 F 12/08/24 17:38 Pulse Rate 91 12/08/24 17:38 Respiratory Rate 18 12/08/24 17:38 Blood Pressure 149/82 H 12/08/24 17:38 Pulse Oximetry 94 12/08/24 17:38 Oxygen Delivery Method Room Air 12/08/24 17:38 Temperature 98.1 F 12/08/24 17:38 Pulse Rate 91 12/08/24 17:38 Respiratory Rate 18 12/08/24 17:38 Blood Pressure 149/82 H 12/08/24 17:38 Pulse Oximetry 94 12/08/24 17:38 Oxygen Delivery Method Room Air 12/08/24 17:38 Medical Decision Making MDM Narrative Medical decision making narrative: This patient has left ear pain due to otitis media. A prescription for amoxicillin is provided. He is encouraged use Tylenol and ibuprofen as needed and directed for symptomatic relief. Discharge Plan Discharge Clinical Impression: Otitis media Patient Disposition: Home, Self-Care Condition: Stable Additional Instructions: Take medication as prescribed. Use [id number] medicines also as needed for symptomatic relief. Follow up with MD return if worsening. Prescriptions: No Action atorvastatin 20 mg tablet 20 mg PO QHS Qty: 90 1RF semaglutide 2 mg/dose (8 mg/3 mL) pen injector 2 mg subcut QWEEK Qty: 3 3RF Follow Up/Referrals: Ap Carl MD [Primary Care Provider] - Stand Alone Forms: [facility] [employer] Info Instructions
--- OUTSIDE RECORDS SUMMARY | 2024-12-08 19:33 | XMS_ITS | Encounter Summary ---
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 [address] [place] [phone] Phone: tel: fax: [facility] Referral ID Status Reason Start Date Expiration Date Visits Re quested Visits Authorized [id number] Closed 05/13/2024 05/13/2025 1 1 GER CUSTOMS Reason for Visit * Outpatient (Routine) - Closed Specialty Diagnoses / Procedures Referred By Parker trejo Referred To Contact Diagnoses Apnea Sleep Obstructive Procedures [facility] Overnight Pulse Oximetry Florentin Leone M.B., Ch.B. [address] [place] [phone] Phone: tel: fax: [facility] Referral ID Status Reason Start Date Expiration Date Visits Re quested Visits Authorized [id number] Closed 05/13/2024 05/13/2025 1 1 Encounter Details Date Type Department Care Team (Latest Contact Info) Description 11/25/2024 9:00 AM MANAGER CUSTOMS - 11/28/2024 11:59 PM MANAGER CUSTOMS Hospital Encounter [facility] in [place], [place] [address] [place] [phone] Florentin Leone M.B., .B. [address] [place] [phone] Apnea Sleep Obstructive Discharge Disposition: Home or Self Care Social History Tobacco Use Types Packs/Day Years Used Date Smoking Tobacco: Every Day Cigarettes [facility] Utilities Answer Date Recorded In the past 12 months has th e electric, gas, oil, or water company threatened to shut off services in your home? No 11/28/2024 Exercise Vital Sign Answer Date Recorde d On average, how many days pe r week do you engage in moderate to strenuous exercise (like a brisk walk)? 6 days 11/28/2024 On average, how many minutes do you engage in exercise at this level? 40 min 11/28/2024 Hunger Vital Sign Answer Date Recorded Within the past 12 months, y ou worried that your food would run out before you got the money to buy more. Never true 11/28/19 Within the past 12 months, t he food you bought just didn't last and you didn't have money to get more. Never true 11/28/2024 PRAPARE - Transportation Answer Date Re corded In the past 12 months, has l ack of transportation kept you from medical appointments or from getting medications? No 11/10 In the past 12 months, has l ack of transportation kept you from meetings, work, or from getting things needed for daily living? No 11/28/2024 Nutrition Answer Date Recorded On average, how many serving s of fruits and vegetables do you eat per day (serving size is equal to 1 cup or approximately the size of a tennis ball)? 0-2 11/28/2024 Dental Answer Date Recorded Dental: Regular Dentist No 11/28/19 Employment Answer Date Recorded Employment status Employed and actively working without restrictions 11/28/2024 Housing Stability Answer Date Recorded What is your living situation today? I have a [facility] place to live 11/28/2024 Sex and Gender Information Value Date Recorded Sex Assigned at Male 11/28/2024 3:14 PM MANAGER CUSTOMS Legal Sex Male 8:46 AM CDT Gender Identity Male 11/28/2024 3:14 PM MANAGER CUSTOMS Sexual Orientation Straight 11/28/2024 3: 14 PM MANAGER CUSTOMS documented as of this encounter Medications at Time of Discharge aspirin-acetamin ophen-caffeine (EXCEDRIN MIGRAINE) 250-250-65 mg per tablet Take 1 tablet by mouth every 6 (six) hours as needed for pain. atorvastatin (Lipitor) 20 mg tablet Take 20 mg by mouth at bedtime. 09/16/2024 DME Bi-level PAPIndications:A pnea Sleep Obstructive DME Order 1 each 11/28/2024 DME OxygenIndication s:Apnea Sleep Obstructive DME Order - for details see Order Report 1 each 11/28/2024 ibuprofen (ADVIL,MOTRIN) 200 mg capsule Take 600 mg by mouth as needed for pain. Occaisionally as needed Ozempic 2 mg/dose (8 mg/3 mL) injection Inject 2 mg under the skin every 7 (seven) days. 11/16/2024 documented as of this encounter Plan of Treatment Upcoming Encounters Date Type Department Care Team (Latest Contact Info) Description 12/27/2024 11:15 AM MANAGER CUSTOMS Appointment Clinic Admissions and Business Services in [place], [place] [address] [place] [phone] 12/27/2024 11:40 AM MANAGER CUSTOMS Ancillary Procedure Department of Cardiovascular Medicine in [address] [phone] Jorge Antoine M.D. [address] [place] [phone] 01/10/2025 2:30 PM MANAGER CUSTOMS Office Visit [facility] in [place], [place] [address] [place] [phone] Trent Bridges D.O., M.S. [address] [place] [phone] documented as of this encounter Procedures Procedure Name Priority Date/Time Associated Diagnosis Comments [place] MUKESH BLD O2 LVL OVNT MONITOR Routine 11/28/2024 3:18 PM MANAGER CUSTOMS Apnea Sleep Obstructive documented in this encounter Results * [facility] Overnight Pulse Oximetry (11/28/2024 3:18 PM MANAGER CUSTOMS) Narrative ONBASE - 11/29/2024 10:56 AM MANAGER CUSTOMS SUMMARY Overnight oximetry was performed on room air without positive airway pressure therapy. The patient denied alcohol or sedative medication on the night of the study. Sleep was reported as s rob as usual . Oxygen saturation during presumed awake period was in the low 90s which quickly dropped with sleep onset. Baseline saturation for the majority of the study was about 85% with a vijay of 58% and 390 minutes below 89% saturation. There was marked oscillatory desaturation throughout the study in a near continuous fashion. CLINICAL INTERPRETATION Abnormal oximetry performed on room air without supplemental oxygen or the use of positive airway pressure device. Findings consistent with severe sleep disordered breathing and sleep-related hypoxemia, consistent with recent finding on polysomnography of severe obstructive sleep apnea. Florentin Arceo, Ch.B. [facility]EP [facility] ORDERA BEATA Final Result ONBASE NA documented in this encounter Visit Diagnoses Diagnosis Apnea Sleep Obstructive documented in this encounter
--- OUTSIDE RECORDS SUMMARY | 2024-12-08 19:33 | XMS_ITS | Encounter Summary ---
Author Organization [facility] Address [address] [place] [address] Care Team Providers Care Illuminating Engineer Name Role Phone Unavailable Primary Care Provider Unavailabl e Encounter Details Date Type Department Care Team (Late st Contact Info) Description 12/06/2024 Clinical Communication Division of Pulmonary Medicine in [place], [place] [address] [place] [phone] Trent Bridges D.O., M.S. [address] [place] [phone] Social History Tobacco Use Types Packs/Day Years Used Date Smoking Tobacco: Every Day Cigarettes [facility] Utilities Answer Date Recorded In the past [...] money to buy more. Never true 11/28/19 25 Within the past 12 months, t he [...] Date Recorded Dental: Regular Dentist No 11/28/19 25 Employment Answer Date Recorded Employment status Employed and actively working without restrictions 11/28/2024 Housing Stability Answer Date Recorded What is your living situation today? I have a [facility] place to live 11/28/2024 Sex and Gender Information Value Date Recorded Sex Assigned at Male 11/28/2024 3:14 PM EDGE BANDER HAND Legal Sex Male 8:46 AM CDT Gender Identity Male 11/28/2024 3:14 PM EDGE BANDER HAND Sexual Orientation Straight 11/28/2024 3: 14 PM EDGE BANDER HAND documented as of this encounter Plan of Treatment Upcoming Encounters Date Type Department Care Team (Latest Contact Info) Description 12/27/2024 11:15 AM EDGE BANDER HAND Appointment Clinic Admissions and Business Services in [place], [place] [address] [place] [phone] 12/27/2024 11:40 AM EDGE BANDER HAND Ancillary Procedure Department of Cardiovascular Medicine in [place], [place] [address] [place] [phone] Jorge Antoine M.D. [address] [place] [phone] 01/10/2025 2:30 PM EDGE BANDER HAND Office Visit [facility] in [place], [place] [address] [place] [phone] Trent Bridges D.O., M.S. [address] [place] [phone] documented as of this encounter Visit Diagnoses Not on filedocumented in this encounter
--- OUTSIDE RECORDS SUMMARY | 2024-12-08 19:33 | XMS_ITS | Encounter Summary ---
Author Organization [facility] Address [address] [place] [address] Care Team Providers Care Surveillance Sensor Operator Name Role Phone Unavailable Primary Care Provider Unavailabl e Reason for Referral * Outpatient (Routine) - Authorized Specialty Diagnoses / Procedures Referred By Parker t Referred To Contact Sleep Medicine Diagnoses Morbid Obesity Body Mass Index >= 35 with Comorbid Condition (HCC) Apnea Sleep Obstructive Jorge Antoine M.D. [address] [place] [phone] Phone: tel: fax: [facility] Referral ID Status Reason Start Date Expiration Date V isits Requested Visits Authorized [id number] Authorized 11/28/2024 05/30/2026 1 1 Scheduling Instructions 1 month follow-up. Dr. Antoine or Dr. Leone or Aric preferred ER COPPER * Outpatient (Routine) - Authorized Specialty Diagnoses / Procedures Referred By Contac t Referred To Contact Sleep Medicine Diagnoses Morbid Obesity Body Mass Index >= 35 with Comorbid Condition (HCC) Apnea Sleep Obstructive Jorge Antoine M.D. [address] [place] [address] Phone: tel: fax: [facility] Referral ID Status Reason Start Date Expiration Date V isits Requested Visits Authorized [id number] Authorized 11/28/2024 05/30/2026 1 1 Scheduling Instructions PAP desensitization ER COPPER * Outpatient (Routine) - Authorized Specialty Diagnoses / Procedures Referred By Contac t Referred To Contact Otorhinolaryngology Diagnoses Morbid Obesity Body Mass Index >= 35 with Comorbid Condition (HCC) Apnea Sleep Obstructive Jorge Antoine M.D. [address] [place] [phone] Phone: tel: fax: [facility] Referral ID Status Reason Start Date Expiration Date V isits Requested Visits Authorized [id number] Authorized 11/28/2024 05/30/2026 1 1 ER COPPER * Cardiovascular-Diagnostic (Routine) - Pending Review Specialty Diagnoses / Procedures Referred By Contac t Referred To Contact Diagnoses Morbid Obesity Body Mass Index >= 35 with Comorbid Condition (HCC) Apnea Sleep Obstructive Procedures Echo Transthoracic (TTE) Jorge Antoine M.D. [address] [place] [phone] Phone: tel: fax: [facility] Referral ID Status Reason Start Date Expiration Date V isits Requested Visits Authorized [id number] Pending Review 11/28/2024 02/28/2026 1 1 ER COPPER * Outpatient (Routine) - Authorized Specialty Diagnoses / Procedures Referred By Contac t Referred To Contact Diagnoses Morbid Obesity Body Mass Index >= 35 with Comorbid Condition (HCC) Apnea Sleep Obstructive Procedures ECG 12 Lead Jorge Antoine M.D. [address] [place] [phone] Phone: tel: fax: [facility] Referral ID Status Reason Start Date Expiration Date V isits Requested Visits Authorized [id number] Authorized 11/28/2024 02/28/2026 1 1 ER COPPER * Specialty Diagnoses / Procedures Referred By Contac t Referred To Contact Diagnoses Morbid Obesity Body Mass Index >= 35 with Comorbid Condition (HCC) Apnea Sleep Obstructive Jorge Antoine M.D. [address] [place] [address] Phone: tel: fax: Referral ID Status Reason Start Date Expiration Date Visits Re quested Visits Authorized Scheduling Instructions If scheduling staff receive an In Basket message for this order, this is because the patient does not have an activated Patient Online Services account. The Bariatric education and questionnaire need to be send via email instead. ER COPPER * Outpatient (Routine) - Authorized Specialty Diagnoses / Procedures Referred By Parker trejo Referred To Contact Diagnoses Morbid Obesity Body Mass Index >= 35 with Comorbid Condition (HCC) Apnea Sleep Obstructive Jorge Antoine M.D. 200 [place] [address] Phone: tel: fax: [facility] Referral ID Status Reason Start Date Expiration Date V isits Requested Visits Authorized [id number] Authorized 11/28/2024 05/30/2026 1 1 Scheduling Instructions Add appointment notes indicating for Bariatric Surgery ER COPPER Reason for Visit * Outpatient (Routine) - Closed Specialty Diagnoses / Procedures Referred By Parker trejo Referred To Contact Sleep Medicine Diagnoses Florentin Hardy M.B., Ch.B. [address] [place] [address] Phone: tel: fax: [facility] Referral ID Status Reason Start Date Expiration Date Visits Re quested Visits Authorized [id number] Closed 05/13/2024 11/12/2025 1 1 Encounter Details Date Type Department Care Team ([facility] st Contact Info) Description 11/28/2024 3:15 PM BUFFER COPPER Office Visit [facility] [place], [place] [address] [place] [phone] Jorge Antoine M.D. [address] [place] [phone] Apnea Sleep Obstructive (Primary Dx); Morbid Obesity Body Mass Index >= 35 with Comorbid Condition (HCC) Social History Tobacco Use Types Packs/Day Years Used Date Smoking Tobacco: Every Day Cigarettes [facility] Utilities Answer Date Recorded In the [...] your living situation today? I have a [facility] place to live 11/28/2024 Sex and Gender Information Value Date Recorded Sex Assigned at Male 11/28/2024 3:14 PM BUFFER COPPER Legal Sex Male 8:46 AM CDT Gender Identity Male 11/28/2024 3:14 PM BUFFER COPPER Sexual Orientation Straight 11/28/2024 3: 14 PM BUFFER COPPER documented as of this encounter Last Filed Vital Signs Vital Sign Reading Time Taken Comments Blood Pressure 141/85 11/28/2024 3:03 PM BUFFER COPPER Pulse 108 11/28/2024 3:03 PM BUFFER COPPER Temperature - - Respiratory Rate 108 11/28/2024 3:03 PM BUFFER COPPER Oxygen Saturation - - Inhaled Oxygen Concentration - - Weight 168 kg (371 lb 5.8 oz) 11/28/2024 3:03 PM BUFFER COPPER Height 191 cm (6' 3.2) 11/28/2024 3:03 PM BUFFER COPPER Body Mass Index 46.17 11/28/2024 3:03 PM BUFFER COPPER documented in this encounter Progress Notes * Jorge Antoine M.D. - 11/28/2024 3:15 PM CST Images from the original note were not included. SUBJECTIVE CHIEF COMPLAINT/REASON FOR CONSULT MAURILIO and OHS Follow-up HISTORY OF PRESENT ILLNESS Mr. Bonilla is a 39 y.o. male from [place], [place] who returns for MAURILIO and OHS follow-up. History was obtained from the patient and patient's partner. He underwent overnight polysomnography on 05/08/2024 which showed an apnea hypopnea index (AHI) of 102/hr. BiPAP S 21/14 and 1 L supplemental oxygen demonstrated generally good control of obstructive sleep disordered breathing and improvement an oxyhemoglobin saturation and transcutaneous CO2. Weight at the time of testing was 177 kg. Patient was last seen in the [facility] 05[facility]13[facility] Leone for PSG results visit. At that visit, he was prescribed BiPAP S 21/14 cm H2O with 1 L supplemental oxygen bleed in. He returns today for prescheduled follow- up which was initially planned as a PAP compliance visit this past fall. Today, the patient reports that he was not able to tolerate BiPAP and that he never received supplemental oxygen from his DME vendor. His main interested days discussing possible surgical alternatives for his obstructive sleep apnea. He used the BiPAP for about 3 weeks prior to return in it to his DME vendor. He reports that he haddifficulty for multiple reasons. Overall, he felt that he slept worse with the BiPAP than without it. He was able to tolerate the pressure during the ramp when he initially put it on, but had difficulty at full pressure feeling that he was choking and had difficulty exhaling fully. Additionally, he felt that the BiPAP often woke him up overnight, especially when he shifted back and forth. He developed what he reported it was coughing attacks, which were worse than when he was not wearing the machine. He was using a hybrid full face mask interface during this time. He additionally reported continued dry mouth despite use of heated humidity and when he increase the humidity level, he then felt like there is too much humidity and he was drowning. The straps and mask were bothersome from a perspective of being tight on his head as well. Finally, he reported increased headache in the morningcompared to without the PAP. He does not have a machine at home anymore as he returned to his DME vendor. Previously, he had trialed BiPAP with the [facility]. At that time he was using a fullface mask interface. Again though, he had difficulty tolerating the machine. Current bedtime is between 9:30 p.m. and midnight. Initial sleep latency is very short, less than 5minutes. He awakens about 1-2 times nightly due to snort arousals or the bathroom. He awakens between 6:30 a.m. and 7:30 a.m., but does not feel refreshed. On initial questioning, he does not feel particularly sleepy during the day, but with collateral information provided from his fiancee, he did endorse daytime sleepiness. He is often falling asleep in permissive situations such as watching TV or reading, but also falls asleep talking with others, at work, and endorses drowsy driving. He denies any accidents. Overnight oximetry was performed last night on room air without BiPAP or supplemental oxygen. He reports waking up 2-3 times for the bathroom or coughing episodes. He is currently on Ozempic 2 mg weekly dose. Weight is down from 177 kg at polysomnography to 168 kg. He reports that he had gotten slightly lower, but then increased back up to his current weight. He and his partner endorsed that he needs to continue working on lifestyle changes, primarily eating habits. Questionnaires: [place] Total score: (Patient-Rptd) 13 Promis 10 Flowsheet Row Office Visit from 11/28/2024 in [facility] [place], [place] Telemedicine from 05/13/2024 in [facility] [place], [place] [id number] Physical Health Raw Score 11 11 [id number] Physical Health T-Score 37.4 37.4 [id number] Mental Health Raw Score 13 12 [id number] Mental Health T-Score 45.8 43.5 OBJECTIVE Blood Pressure: 141/85 (11/28/2024 3:03 PM) Pulse Rate: 108 (11/28/2024 3:03 PM) Resp Rate: (!) 108 (11/28/2024 3:03 PM) BMI (Calculated): 46.2 kg/m?? (11/28/2024 3:03 PM) Height: 191 cm (11/28/2024 3:03 PM) Weight: (!) 168 kg (11/28/2024 3:03 PM) Vitals: 11/28/24 1503 BP: 141/85 Pulse: 108 Resp: (!) 108 Estimated body mass index is 46.17 kg/m?? as calculated from the following: Height as of this encounter: 191 cm. Weight as of this encounter: 168 kg. PHYSICAL EXAMINATION General Appearance: No acute distress, sitting comfortably on couch, able to communicate in full sentences without difficulty. Neck: Neck circumference of 50 cm. HEENT: Narrow lateral diameter of the posterior oropharynx. Erythematous and red oropharynx. ASSESSMENT / PLAN #1 Severe obstructive sleep apnea (AHI 102 05/08/2024) #2 Obesity hypoventilation syndrome #3 Obesity BMI 46 #4 HTN #5 HLD is a 39 y.o. male who presents to the Sleep Medicine Center for follow-up regarding his known severe obstructive sleep apnea. Unfortunately, the patient had difficulty tolerating BiPAP therapy over the summer and discontinuedafter about 3 weeks of use. He reports a multitude of difficulties using the machine including weresleep with the PAP than without it, difficulty with pressure, dry mouth, mask/straps feeling tight,and more frequent morning headache. His overnight oximetry was consistent with continued untreated severe obstructive sleep apnea with a baseline SpO2 84%, SpO2 vijay 58%, 390 minutes below 89% saturation, and your continues oscillatory desaturations throughout the night with an adjusted oxygen desaturation index of 71.1 per hour. We discussed the results of his overnight oximetry, the pathophysiology of obstructive sleep apnea,and the impact of moderate and severe disease, including cardiovascular risk. Given his severe disease, recommend EKG and TTE for further evaluation of current impact on his heart. We discussed treatment options including re trial of BiPAP with supplemental oxygen and surgical strategies. Currently, I do not think he would be a good candidate for hypoglossal nerve stimulator given his elevated AHI greater than 100 and BMI of 46. He does have a crowded oropharynx and some nasal congestion. He may benefit from surgical sleep intervention either as a primary treatment method for his obstructive sleep apnea or as an adjunct to better tolerate BiPAP therapy. I have referred toENT sleep for surgical evaluation. In the interim, recommend initiating intranasal fluticasone spray 1 spray each nostril daily. We discussed the importance of weight management for obstructive sleep apnea. Recommend the patientreasonable his efforts at lifestyle modification and consider evaluation with nutrition/weight management which he was previously referred. Additionally, primary care provider could consider switching to tirzepatide from semaglutide given his reported plateau from current therapy. Finally, I anticipate that he may require surgical intervention for weight management and have referred him for bariatric evaluation. While these evaluations are being scheduled in ongoing, I strongly recommend that he re trial BiPAPwith supplemental oxygen. I have provided him with new prescriptions for both. We discussed that there are multiple possibilities to make BiPAP more tolerable. I will have him meet with sleep Medicine nursing in 1 week and returned with MD in 1 month. I have provided him with new CPAP folder and encouraged him to reach out if he is having difficulties even prior to these appointments. The patient continues to have a medical condition for which PAP is medically indicated. The replacement of accessories is medically necessary and essential to use PAP effectively. Plan: Re-initiate BPAP S and supplemental oxygen. 1 week follow up with sleep nursing for desensitizationvisit. 1 month follow-up with MD. Recommend initiation of intranasal fluticasone 1 spray each nostril daily until ENT evaluation. Sleep ENT surgical consultation for MAURILIO surgical options including primary therapy and/or adjunct for PAP tolerance. ECG and TTE. Endocrinology bariatric referral. Patient to discuss with PCP consideration for changing to tirzepatide. PATIENT EDUCATION Ready to learn, no apparent learning barriers were identified; learning preferences include listening. Explained diagnosis and treatment plan; patient expressed understanding of the content. The patient was staffed with the supervising pre sales technical consultant, Dr. Vasquez, who is in agreement withthe assessment and plan. ER COPPER documented in this encounter Plan of Treatment Upcoming Encounters Date Type Department Care Team (Latest Contact Info) Description 12/27/2024 11:15 AM BUFFER COPPER Appointment Clinic [facility] in [place], [place] [address] [place] [address] 12/27/2024 11:40 AM BUFFER COPPER Ancillary Procedure Department of Cardiovascular Medicine in [place], [place] [address] [place] [address] Jorge Antoine M.D. [address] [place] [phone] 01/10/2025 2:30 PM BUFFER COPPER Office Visit [facility] [place], [place] [address] [place] [phone] Trent Bridges D.O., M.S. [address] [place] [phone] Scheduled Orders Name Type Priority Associated Diagnoses Orde r Schedule ECG 12 Lead ECG Routine Morbid Obesity Body Mass Index >= 35 with Comorbid Condition (HCC) Apnea Sleep Obstructive Expected: 11/28/2024, Expires: 02/26/2026 Echo Transthoracic (TTE) Echocardiography Routine Morbid Obesity Body Mass Index >= 35 with Comorbid Condition (HCC) Apnea Sleep Obstructive Expected: 11/28/2024, Expires: 02/26/2026 Scheduled Referrals Name Type Priority Associated Diagnoses Order Schedule END Nurse triage visit (clinic) Outpatient Referral Routine Morbid Obesity Body Mass Index >= 35 with Comorbid Condition (HCC) Apnea Sleep Obstructive Expected: 11/28/2024, Expires: 02/26/2026 Bariatric Surgery Program Education Outpatient Referral Routine Morbid Obesity Body Mass Index >= 35 with Comorbid Condition (HCC) Apnea Sleep Obstructive Ordered: 11/28/2024 Otorhinolaryngology - Sleep surgery consult (clinic) Outpatient Referral Routine Morbid Obesity Body Mass Index >= 35 with Comorbid Condition (HCC) Apnea Sleep Obstructive Expected: 11/28/2024, Expires: 02/26/2026 Sleep Medicine nurse visit (clinic) Outpatient Referral Routine Morbid Obesity Body Mass Index >= 35 with Comorbid Condition (HCC) Apnea Sleep Obstructive Expected: 12/05/2024, Expires: 02/26/2026 Sleep Medicine office visit (clinic) Outpatient Referral Routine Morbid Obesity Body Mass Index >= 35 with Comorbid Condition (HCC) Apnea Sleep Obstructive Expected: 12/29/2024, Expires: 02/26/2026 documented as of this encounter Visit Diagnoses Diagnosis Apnea Sleep Obstructive- Primary Morbid Obesity Body Mass Index >= 35 with Comorbid Condition (HCC) documented in this encounter
--- OUTSIDE RECORDS SUMMARY | 2024-12-08 19:33 | XMS_ITS | Encounter Summary ---
Author Organization [facility] Address [address] [place] [id number] Care Team Providers Care Manager Global Name Role Phone Unavailable Primary Care Provider Unavailabl e Reason for Visit * Outpatient (Routine) - Closed Specialty Diagnoses / Procedures Referred By Parker trejo Referred To Contact Diagnoses Apnea Sleep Obstructive Procedures [facility] Overnight Pulse Oximetry Florentin Leone M.B., Ch.B. [address] [place] [phone] Phone: tel: fax: [facility] Referral ID Status Reason Start Date Expiration Date Visits Re quested Visits Authorized [id number] Closed 05/13/2024 05/13/2025 1 1 Encounter Details Date Type Department Care Team (Latest Contact Info) Description 11/28/2024 7:45 AM BROOCH AND BRACELET MAKER - 12/01/2024 11:59 PM [facility] Hospital Encounter [facility] [place], [place] [address] [place] [phone] Florentin Leone M.B., Ch.B. [address] [place] [phone] Discharge Disposition: Home or Self Care Social History Tobacco Use Types Packs/Day Years Used Date Smoking Tobacco: Every Day Cigarettes [facility] Utilities Answer Date Recorded In the past [...] your living situation today? I have a [facility] place to live 11/28/2024 Sex and Gender Information Value Date Recorded Sex Assigned at Male 11/28/2024 3:14 PM BROOCH AND BRACELET MAKER Legal Sex Male 8:46 AM CDT Gender Identity Male 11/28/2024 3:14 PM BROOCH AND BRACELET MAKER Sexual Orientation Straight 11/28/2024 3: 14 PM BROOCH AND BRACELET MAKER documented as of this encounter Medications at [...] (Latest Contact Info) Description 12/27/2024 11:15 AM BROOCH AND BRACELET MAKER Appointment Clinic [facility] in [place], [place] [address] [place] [phone] 12/27/2024 11:40 AM BROOCH AND BRACELET MAKER Ancillary Procedure Department of Cardiovascular Medicine in [place], [place] [address] [place] [phone] Jorge Antoine M.D. [address] [place] [phone] 01/10/2025 2:30 PM BROOCH AND BRACELET MAKER Office Visit [facility] [place], [place] [address] [place] [phone] Trent Bridges D.O., M.S. [address] [place] [phone] documented as of this encounter Procedures Procedure Name Priority Date/Time Associated Diagnosis Comments MI MUKESH BLD O2 LVL OVNT MONITOR Routine 11/28/2024 3:18 PM BROOCH AND BRACELET MAKER Apnea Sleep Obstructive documented in this encounter Results * [facility] Overnight Pulse Oximetry (11/28/2024 3:18 PM BROOCH AND BRACELET MAKER) Narrative ONBASE - 11/29/2024 10:56 AM BROOCH AND BRACELET MAKER SUMMARY Overnight oximetry was performed on room [...] on polysomnography of severe obstructive sleep apnea. us Florentin Arceo, B. [facility] ORDERA BLES Final Result ONBASE NA documented in this encounter Visit Diagnoses Not on filedocumented in this encounter
--- OUTSIDE RECORDS SUMMARY | 2024-12-08 19:33 | XMS_ITS | Clinical Summary ---
Author Organization [facility] Address [place], [place] [address] Care Team Providers Care Furnace Repairer Helper Name Role Phone Pcp, No Primary Care [...] Recorded Sex Assigned at Not on file Legal Sex Male 5:26 AM ELECTRONIC WARFARE OFFICER Gender Identity Not on file Sexual Orientation Not on file Obstetrics History Last Filed Vital Signs Vital Sign Reading Time Taken Comments Blood Pressure 142/89 05/06/2018 9:26 AM CDT Pulse 92 05/06/2018 9:23 AM CDT Temperature 36.6 C (97.9 F) 05/06/2018 9:23 AM CDT Respiratory Rate - - Oxygen Saturation 98% 05/06/2018 9:23 AM CDT Inhaled Oxygen Concentration - - Weight 141.1 kg (311 lb) 05/06/2018 9:23 AM CDT Height 189 cm (6' 2.41) 12/30/2017 11:13 AM ELECTRONIC WARFARE OFFICER Body Mass Index 39.49 12/30/2017 11:13 AM ELECTRONIC WARFARE OFFICER Plan of Treatment Health Maintenance Due Date Last Done Comments HIV for age 15-65 01/30/2000 Hepatitis C screening for age 18-79 2003 BMI (ht and wt on same day) for age 18+ 12/30/2018 12/30/2017, 11/13/2016, 06/26/2016, Additional history exists Depression screening for age 12+ 05/06/2019 05/06/2018, 11/13/2016 Lipids for age 35-44 01/30/2020 COVID-19 vaccine series (2023- season) 2024 Influenza for age 9-49 07/10/2024 08/13/2009, 2008 Tetanus booster 04/22/2026 04/22/2016 Tdap Completed 04/22/2016 Pneumococcal series for age 6-49 Aged Out No longer eligible based on patient's age to complete this topic Care Teams Furnace Repairer Helper Relationship Specialty Start Date End Date Pcp, No . PCP - General 05/27/14
--- OUTSIDE RECORDS SUMMARY | 2024-12-08 19:33 | XMS_ITS | Encounter Summary ---
Author Organization [facility] Address [address] [place] [address] Care Team Providers Care Transfer Operator Name Role Phone Unavailable Primary Care Provider Unavailabl e Reason for Referral * Behavioral Health (Routine) - Authorized Specialty Diagnoses / Procedures Referred By Parker trejo Referred To Contact Psychiatry / Psychiatry and Psychology Diagnoses Morbid Obesity Body Mass Index >= 35 with Comorbid Condition (HCC) Tanner Meyer M.D. [address] [place] [address] Phone: tel: fax: [facility] Referral ID Status Reason Start Date Expiration Date V isits Requested Visits Authorized [id number] Authorized 12/01/2024 06/02/2026 1 1 Scheduling Instructions Okay to schedule prior to Endo consult if open, but both visits should be within a week of eachother UMER SERVICES ADVISOR * Outpatient (Routine) - Authorized Specialty Diagnoses / Procedures Referred By Parker trejo Referred To Contact Nutrition Diagnoses Morbid Obesity Body Mass Index >= 35 with Comorbid Condition (HCC) Tanner Meyer M.D. [address] [place] [address] Phone: tel: fax: [facility] Referral ID Status Reason Start Date Expiration Date V isits Requested Visits Authorized [id number] Authorized 12/01/2024 06/02/2026 1 1 Scheduling Instructions Should be scheduled after Endo consult UMER SERVICES ADVISOR * Outpatient (Routine) - Authorized Specialty Diagnoses / Procedures Referred By Parker trejo Referred To Contact Endocrinology Diagnoses Morbid Obesity Body Mass Index >= 35 with Comorbid Condition (HCC) Tanner Meyer M.D. [address] [place] [address] Phone: tel: fax: [facility] Referral ID Status Reason Start Date Expiration Date V isits Requested Visits Authorized [id number] Authorized 12/01/2024 06/02/2026 1 1 Scheduling Instructions Should be scheduled first before Nutrition and Surgery consult. Can be scheduled after Psych if visits are within a week of eachother UMER SERVICES ADVISOR Reason for Visit * Reason Onset Date Comments Weight Management Nurse pre-visit assessment * Outpatient (Routine) - Authorized Specialty Diagnoses / Procedures Referred By Parker trejo Referred To Contact Diagnoses Morbid Obesity Body Mass Index >= 35 with Comorbid Condition (HCC) Apnea Sleep Obstructive Jorge Antoine M.D. [address] [place] [address] Phone: tel: fax: [facility] Referral ID Status Reason Start Date Expiration Date V isits Requested Visits Authorized [id number] Authorized 11/28/2024 05/30/2026 1 1 Encounter Details Date Type Department Care Team (Latest Contact Info) Description 11/30/2024 10:00 AM CONSUMER SERVICES ADVISOR Clinical Communication Division of Endocrinology in [place], [place] [address] [place] [address] Jorge Antoine M.D. [address] [place] [phone] Sonya Willams R.N. Weight Management Nurse pre-visit assessment Social History Tobacco Use Types Packs/Day Years Used Date Smoking Tobacco: Every Day Cigarettes [facility] Utilities Answer Date Recorded In the past 12 months has [employer], gas, oil, or water company threatened to [...] your living situation today? I have a [facility] place to live 11/28/2024 Sex and Gender Information Value Date Recorded Sex Assigned at Male 11/28/2024 3:14 PM CONSUMER SERVICES ADVISOR Legal Sex Male 8:46 AM CDT Gender Identity Male 11/28/2024 3:14 PM CONSUMER SERVICES ADVISOR Sexual Orientation Straight 11/28/2024 3: 14 PM CONSUMER SERVICES ADVISOR documented as of this encounter Miscellaneous Notes * Addendum Note - Sonya Willams, R.N. - 11/30/2024 1:13 PM CSTAddended by: SONYA WILLAMS on: 11/30/2024 01:13 PM Modules accepted: Orders UMER SERVICES ADVISOR * Telephone Encounter - Sonya Willams Bruno Oglesby - 11/30/2024 9:41 AM CONSUMER SERVICES ADVISOR CHIEF COMPLAINT/REASON FOR CALL Ap Bonilla was contacted for the pre-visit nurse assessment. Ap expressed interest in bariatric surgery. Ap reports that he has lost about 30 pounds while taking Ozempic (current dose is 2 mg) as prescribed by his primary care team. Bariatric insurance coverage information was not available at the time of this call. We were unableto verify bariatric surgery coverage at [facility] or to discuss patient-specific surgical prerequisites. HISTORY OF PRESENT ILLNESS Current Weight information Patient reports height is 6 feet, 2 inches and current weight is 368 pounds. Calculated BMI is 47.2 kg/m2. Patient responses to Medical and Psychosocial History Questionnaire: What is your height? (please respond in feet and inches) 6ft 2in What is your weight? (please respond in pounds) 368 Calculate your BMI using the BMI calculator (link opens a new window, calculate and return to questions) 47.2 Are you seeking a procedure or a surgery to promote weight loss? Yes Select one or multiple Bariatric Surgery,Endoscopic Sleeve Gastroplasty or Endoscopic Intragastric Balloon (NOTE: [facility] will not submit endoscopic procedures for weight loss to insurance and you will be required to make a pre- service deposit of $10,000 to $15,000) Which of these medical problems do you have? (select all that apply) High cholesterol, Obstructive sleep apnea How do you describe your sleep apnea? Diagnosed Are you using a CPAP most days? No Have you been diagnosed with gastrointestinal (GI) dysmotility (impaired movement of food or fluidsthrough the GI tract, esophagus, or stomach)? No Have you regularly used narcotic or opioid medications as prescribed by your doctor over the past three months (e.g. oxycodone, norco)? No Have you ever been diagnosed with a mental health condition? No Have you ever been under the care of a mental health provider? This would include a counselor, psychologist, or psychiatrist No Are you currently taking any medications to improve your mood, thoughts or behavior, otherwise known as psychotropic drugs? (e.g. Xanax, Zoloft, Celexa, Prozac, Ativan, Prozac, Wellbutrin, Lexapro, etc.) No Have you been hospitalized for a mental health condition? No Have you ever attempted suicide? Yes How many times have you attempted suicide? 2 Have you attempted suicide in the last year? No How many times in the past year have you used an illegal drug or used a prescription medication fornonmedical reasons? None Have you ever been in treatment for substance use (e.g. alcohol, drug, prescription medications)? No Have you ever been diagnosed with or treated for bulimia or anorexia? No Have you ever made yourself vomit, misused laxatives or water pills, didn't eat enough food to support your body's needs, or exercised too much to control your weight? No Have you ever made yourself vomit, misused laxatives or water pills, didn't eat enough food to support your body's needs, or exercised too much to control your weight in the last year? Do you regularly use tobacco, nicotine, e-cigarettes or vaping products? Yes Do you have a support person(s) in your life? (A support person is someone who can help you as you are recovering from bariatric surgery or someone who can be there for you when you are feeling down)Yes How many support persons do you have? More than one capable support person Are you able to live on your own without any help? Yes If you need help, are you able to do most things on your own? Do you have any barriers to learning such as cognitive, reading, hearing, or visual? No On average, how many days a week do you have an alcoholic drink? 0 On a typical drinking day, how many drinks do you have? 3 or 4 How many times in the past year have you drank more than 5 drinks (for men), or more than 4 drinks (for women) in one day? 1-5 In the last year, how much weight have you gained? 0-5 lbs Are you currently taking any blood thinning medications? (ex. Eliquis, Pradaxa, Savaysa, Lovenox, Heparin, Xarelto, Coumadin) No Did you watch the educational videos and links that were sent to you? Yes Patient's First Name Ap Patient's Last Name Lizettamalia Patient's Date of 1985 [place] 0 Drinks per day 4 Times per week 0 [place] 0 Ap reports a CPAP was recently prescribed and we discussed the need for CPAP compliance prior tobariatric surgery. I explained that patients are expected to maintain or lose weight (not gain weight) while preparingfor weight-loss procedure or bariatric surgery. ASSESSMENT/PLAN After we receive Ap's completed pre-visit questionnaire, we will request appropriate appointments at [facility] including Psychology, Endocrinology, and Nutrition. Our schedulers will contact thepatient when appointment calendars are open. I explained that there may be patient-specific surgical prerequisites recommended by the bariatric team. Patient was advised to notify us upon completion of all required tasks. Bariatric insurance coverage information was not available at the time of this call. We were unableto discuss current patient-specific insurance prerequisites for bariatric surgery, required provider credentials, and any timeframe for completion. I advised patient to contact us in two weeks if we have not yet called to discuss insurance requirements. Patient identified no barriers to learning. Our contact number was provided. Education: patient/caller able to teach back. The following references were used: nursing clinical judgement. UMER SERVICES ADVISOR UMER SERVICES ADVISOR documented in this encounter Plan of Treatment Upcoming Encounters Date Type Department Care Team (Latest Contact Info) Description 12/27/2024 11:15 AM CONSUMER SERVICES ADVISOR Appointment Clinic Admissions and Business Services in [place], [place] [address] [place] [phone] 12/27/2024 11:40 AM CONSUMER SERVICES ADVISOR Ancillary Procedure Department of Cardiovascular Medicine in [place], [place] [address] [place] [phone] Jorge Antoine M.D. [address] [place] [phone] 01/10/2025 2:30 PM CONSUMER SERVICES ADVISOR Office Visit [facility] in [place], [place] [address] [place] [phone] Trent Bridges D.O., M.S. [address] [place] [phone] Scheduled Referrals Name Type Priority Associated Diagnoses Order Schedule Endocrinology - Bariatric consult (clinic) Outpatient Referral Routine Morbid Obesity Body Mass Index >= 35 with Comorbid Condition (HCC) Expected: 12/01/2024 (Approximate), Expires: 02/28/2026 Nutrition - Bariatrics medical nutrition therapy consult (clinic) Outpatient Referral Routine Morbid Obesity Body Mass Index >= 35 with Comorbid Condition (HCC) Expected: 12/01/2024 (Approximate), Expires: 02/28/2026 Psychiatry and Psychology - Bariatric consult (clinic) Outpatient Referral Routine Morbid Obesity Body Mass Index >= 35 with Comorbid Condition (HCC) Expected: 12/01/2024 (Approximate), Expires: 02/28/2026 documented as of this encounter Visit Diagnoses Diagnosis Morbid Obesity Body Mass Index >= 35 with Comorbid Condition (HCC) Apnea Sleep Obstructive documented in this encounter
--- OUTSIDE RECORDS SUMMARY | 2024-12-08 19:33 | XMS_ITS ---
Author Organization [facility] Address [address] [place] [address] Care Team Providers Care Mobile Equipment Servicer Name Role Phone Unavailable Primary Care Provider Unavailabl e Bariatrics Program Status:Identified (Enrolling) Start date:12/01/2024 Continued Care and Services Coordination
--- OUTSIDE RECORDS SUMMARY | 2024-12-08 19:34 | XMS_ITS | Clinical Summary ---
Author Organization [facility] Address [address] [place] [address] Care Team Providers Care Degreaser Operator Name Role Phone Unavailable Primary Care Provider Unavailabl e Source Comments Patient records contain information from all sites at [facility]. For routine questions regarding patient records, call [phone] during business hours, M-F 8:00 AM - 5:00 PM Central Time. Record requests for emergency care only can be directed to [phone] at any time.[facility] Allergies Active Allergy Reactions Criticality Noted Date Comments House Dust Other (see comments) 03/22/2024 ITCHY EYES, SNEEZING, BLOCKED SINUSES Pollen Extracts Other (see comments) 03/22/2024 Itchy eyes, sneezing, blocked sinuses Medications * This document contains information received from the source organization and may not represent a complete record from that organization. ibuprofen (ADVIL,MOTRIN) 200 mg capsule Take 600 mg by mouth as needed for pain. Occaisionally as needed Active aspirin-acetami nophen-caffeine (EXCEDRIN MIGRAINE) 250-250-65 mg per tablet Take 1 tablet by mouth every 6 (six) hours as needed for pain. Active Ozempic 2 mg/dose (8 mg/3 mL) injection Inject 2 mg under the skin every 7 (seven) days. 11/16/19 Active atorvastatin (Lipitor) 20 mg tablet Take 20 mg by mouth at bedtime. 09/16/20 24 Active DME Bi-level PAPIndications: Apnea Sleep Obstructive DME Order 1 each 11/28/19 Active DME OxygenIndicatio ns:Apnea Sleep Obstructive DME Order - for details see Order Report 1 each 11/28/19 25 Active DME Bi-level PAPIndications: Apnea Sleep Obstructive DME Order 1 each 05/13/20 24 025 Discontin ued(Reord er) DME OxygenIndicatio ns:Acute Respiratory Failure With Hypercapnia (HCC) DME Order - for details see Order Report 1 each 05/13/20 24 025 Discontin ued(Reord er) Active Problems Problem Noted Date Diagnosed Date Acute Respiratory Failure With Hypercapnia 05/13 Apnea Sleep Obstructive 03/23/2024 Morbid Obesity Body Mass Ind ex >= 35 with Comorbid Condition 03/23/2024 Encounters Date Type Department Care Team Description 12/06/2024 Clinical Communication Division of Pulmonary Medicine in [place], [place] [address] [place] [phone] Trent Bridges D.O., M.S. 11/30/2024 10:00 AM ROTARY MACHINE OPERATOR Clinical Communication Division of Endocrinology in [place], [place] [address] [place] [phone] Jorge Antoine M.D. [place], Pamela K, RGracielaNGraciela Weight Management Nurse pre-visit assessment 11/28/2024 3:15 PM ROTARY MACHINE OPERATOR Office Visit [facility] in [place], [place] [address] [place] [phone] Jorge Antoine M.D. Apnea Sleep Obstructive (Primary Dx); Morbid Obesity Body Mass Index >= 35 with Comorbid Condition (HCC) 11/28/2024 7:45 AM ROTARY MACHINE OPERATOR - 12/01/2024 11:59 PM [facility] Hospital Encounter [facility] in [place], [place] [address] [place] [phone] Florentin Leone M.B., Ch.B. Discharge Disposition: Home or Self Care 11/25/2024 9:00 AM ROTARY MACHINE OPERATOR - 11/28/2024 11:59 PM [facility] Hospital Encounter [facility] in [place], [place] [address] [place] [phone] Florentin Leone M.B., Ch.B. Apnea Sleep Obstructive Discharge Disposition: Home or Self Care from Last 3 Months Social History Tobacco Use Types Packs/Day Years Used Date Smoking Tobacco: Every Day Cigarettes Tobacco Cessation:Ready to Q uit: Not Asked; Counseling Given: Not Answered [facility] Utilities Answer Date Recorded In the [...] your living situation today? I have a [facility] place to live 11/28/2024 Sex and Gender Information Value Date Recorded Sex Assigned at Male 11/28/2024 3:14 PM ROTARY MACHINE OPERATOR Legal Sex Male 8:46 AM CDT Gender Identity Male 11/28/2024 3:14 PM ROTARY MACHINE OPERATOR Sexual Orientation Straight 11/28/2024 3: 14 PM ROTARY MACHINE OPERATOR Last Filed Vital Signs Vital Sign Reading Time Taken Comments Blood Pressure 141/85 11/28/2024 3:03 PM ROTARY MACHINE OPERATOR Pulse 108 11/28/2024 3:03 PM ROTARY MACHINE OPERATOR Temperature - - Respiratory Rate 108 11/28/2024 3:03 PM ROTARY MACHINE OPERATOR Oxygen Saturation - - Inhaled Oxygen Concentration - - Weight 168 kg (371 lb 5.8 oz) 11/28/2024 3:03 PM ROTARY MACHINE OPERATOR Height 191 cm (6' 3.2) 11/28/2024 3:03 PM ROTARY MACHINE OPERATOR Body Mass Index 46.17 11/28/2024 3:03 PM ROTARY MACHINE OPERATOR Plan of Treatment Upcoming Encounters Date Type Department Care Team (Latest Contact Info) Description 12/27/2024 11:15 AM ROTARY MACHINE OPERATOR Appointment Clinic Admissions and Business Services in [place], [place] [address] [place] [phone] 12/27/2024 11:40 AM ROTARY MACHINE OPERATOR Ancillary Procedure Department of Cardiovascular Medicine in [place], [place] [address] [place] [phone] Jorge Antoine M.D. [address] [place] [phone] 01/10/2025 2:30 PM ROTARY MACHINE OPERATOR Office Visit [facility] in [place], [place] [address] [place] [phone] Trent Bridges D.O., M.S. [address] [place] [phone] Health Maintenance Due Date Last Done Comments HIV Screening 1985 Hepatitis C Screening 1985 Tobacco Cessation counseling 1985 IPV Vaccines (3 of 3 - 4-dose series) 1989 09/20/1986, 09/20/1986, 1985, Additional history exists Hepatitis B Vaccines (1 of 3 - 19+ 3-dose series) 01/30/2004 Pneumococcal vaccine (0-49 years) (1 of 2 - PCV) 01/30/2004 COVID-19 Vaccine (1 - 2023- season) 2024 Influenza Vaccine (#1) 2024 08/13/2009, 2008 Depression Screening (Annual PHQ-2) 11/09/2024 DTaP,Tdap,and Td Vaccines (5 - Td or Tdap) 04/22/2026 04/22/2016, 09/20/1986, 09/20/1986, Additional history exists Lipid (Cholesterol) Screening 05/09/2029 05/09/2024 HPV Vaccines Aged Out No longer eligi ble based on patient's age to complete this topic Procedures Procedure Name Priority Date/Time Associated Diagnosis Comments SC MUKESH BLD O2 LVL OVNT MONITOR Routine 11/28/2024 3:18 PM ROTARY MACHINE OPERATOR Apnea Sleep Obstructive LIPID PANEL, S Routine 05/09/2024 9:38 AM CDT Apnea Sleep Obstructive from Last 3 Months or Most Recently Relevant to Health Maintenance Results * [facility] Overnight Pulse Oximetry (11/28/2024 3:18 PM ROTARY MACHINE OPERATOR) Narrative ONBASE - 11/29/2024 10:56 AM ROTARY MACHINE OPERATOR SUMMARY Overnight oximetry was performed on room [...] apnea. Florentin Arceo, Ch.B. SLEEP CENTER ORDERA BLES Final Result ONBASE NA * (ABNORMAL) Lipid Panel (05/09/2024 9:38 AM [...] AM CDT Florentin Arceo, Ch.B. LAB BLOOD ADD-ON Fi nal Result [facility] [address] [place] [address], [place] [facility] [address] [place] [address] from Last 3 Months or Most Recently Relevant to Health Maintenance Insurance [facility]
== END 2024-12-08 19:55 | disposition home or self-care (01) ==
PROVIDERS: Emergency Provider Emergency Medicine Emergency Medical Services; PCP Family Medicine
DX: H66.92 Otitis media, unspecified, left ear (principal)
CPT/HCPCS: 99283; 99284

== ENCOUNTER 2025-02-21 10:40 | Outpatient (CLI) | payer BC, SELFPAY | END 2025-02-21 10:41 | disposition home or self-care (01) | LOC: NFLDREF 02-24 08:18 | PROVIDERS: PCP Family Medicine; Referring Provider Family Medicine; Visit Provider Family Medicine | DX: E78.2 Mixed hyperlipidemia (principal) | CPT/HCPCS: 80061 ==

== ENCOUNTER 2025-07-04 13:31 | Outpatient (CLI) | payer BC, SELFPAY | END 2025-07-04 13:32 | disposition home or self-care (01) | PROVIDERS: PCP Family Medicine; Visit Provider Family Medicine | DX: E78.2 Mixed hyperlipidemia (principal); E11.9 Type 2 diabetes mellitus without complications | CPT/HCPCS: 80048; 80061; 84460 ==